=== PATIENT | male | born 1960 | race African-American/Black ===

== ENCOUNTER → 2016-09-10 | Outpatient (CLI) | payer OTHER ==
[2016-09-10 11:44] LABS: APPEARANCE,URINE CLEAR; BILIRUBIN,URINE NEGATIVE (NEGATIVE); GLUCOSE, URINE NEGATIVE (NEGATIVE); KETONES,URINE NEGATIVE (NEGATIVE); LEUKOCYTE ESTERASE,URINE NEGATIVE (NEGATIVE); NITRITE,URINE NEGATIVE (NEGATIVE); PROTEIN,URINE NEGATIVE (NEGATIVE); URINE SPECIFIC GRAVITY 1.009; UROBILINOGEN,URINE NEGATIVE mg/dL (<2.0)
[2016-09-10 12:04] LABS: ABSOLUTE BASOPHILS # (AUTO) 0.1 10^3/uL (0.0-0.2); ABSOLUTE EOSINOPHILS # (AUTO) 0.3 10^3/uL (0.0-0.6); ABSOLUTE MONOCYTES (AUTO) 0.6 10^3/uL (0.1-1.4); ABSOLUTE NEUT (AUTO) 2.6 10^3/uL (1.7-8.2); BASOPHILS % (AUTO) 1.4 % (0-2); EOSINOPHILS % (AUTO) 5.7 % (0-6); HEMATOCRIT 30.9 % (37.9-51.0); HEMOGLOBIN 10.2 g/dL (13.5-17.0); HGB HCT DIFFERENCE -0.3; LYMPHOCYTES % (AUTO) 22.7 % (13-45); MEAN CORPUSCULAR HEMOGLOBIN 28.4 pg (27.0-33.4); MEAN CORPUSCULAR HGB CONC 32.9 g/dL (32.0-36.0); MEAN CORPUSCULAR VOLUME 86 fl (80-97); MONOCYTES % (AUTO) 12.4 % (3-13); RED BLOOD COUNT 3.57 10^6/uL (4.35-5.55); RED CELL DISTRIBUTION WIDTH 15.6 % (11.5-14.0); SEGMENTED NEUTROPHILS % (AUTO) 57.8 % (42-78); WHITE BLOOD COUNT 4.5 10^3/uL (4.0-10.5)
[2016-09-10 12:26] LABS: ALANINE AMINOTRANSFERASE 55 U/L (21-72); ALBUMIN 3.2 g/dL (3.5-5.0); ALKALINE PHOSPHATASE 117 U/L (38-126); ANION GAP 16 (5-19); ASPARTATE AMINO TRANSFERASE 40 U/L (17-59); BILIRUBIN,DIRECT 0.4 mg/dL (0.0-0.4); BILIRUBIN,TOTAL 0.6 mg/dL (0.2-1.3); BLOOD UREA NITROGEN 83 mg/dL (7-20); CALCIUM 8.9 mg/dL (8.4-10.2); CARBON DIOXIDE 27 mmol/L (22-30); CHLORIDE 102 mmol/L (98-107); CREATININE RESULT 2.89 mg/dL (0.52-1.25); GLUCOSE 110 mg/dL (75-110); MAGNESIUM 1.7 mg/dL (1.6-2.3); PHOSPHORUS 5.4 mg/dL (2.5-4.5); POTASSIUM 4.5 mmol/L (3.6-5.0); SODIUM 145.4 mmol/L (137-145); TOTAL PROTEIN 7.3 g/dL (6.3-8.2)
[2016-09-11 10:20] LABS: PTH INTACT 91 pg/mL (15-65)
[2016-09-11 16:39] LABS: A/G RATIO 0.7 (0.7-1.7); ALBUMIN 2 2.8 g/dL (2.9-4.4); ALPHA-1-GLOBULIN 2 0.3 g/dL (0.0-0.4); GAMMA GLOBULIN 1.7 g/dL (0.4-1.8)
== END ==
LOC: LAB 10:58
PROVIDERS: ATTEND Internal Medicine Nephrology
DX: I13.0 Hypertensive heart and chronic kidney disease with heart failure and stage 1 through stage 4 chronic kidney disease, or unspecified chronic kidney disease (principal); N18.3 Chronic kidney disease, stage 3 (moderate); I50.9 Heart failure, unspecified; D64.9 Anemia, unspecified
CPT/HCPCS: 36415; 80053; 81001; 82570; 82728; 83540; 83550; 83735; 83970; 84100; 84156; 84165; 84443; 85025

== ENCOUNTER → 2016-10-28 | Outpatient (CLI) | payer OTHER ==
[2016-10-28 12:56] LABS: HEMATOCRIT 31.4 % (37.9-51.0); HEMOGLOBIN 10.7 g/dL (13.5-17.0); HGB HCT DIFFERENCE 0.7; MEAN CORPUSCULAR HEMOGLOBIN 29.2 pg (27.0-33.4); MEAN CORPUSCULAR VOLUME 86 fl (80-97); RED BLOOD COUNT 3.65 10^6/uL (4.35-5.55); RED CELL DISTRIBUTION WIDTH 13.7 % (11.5-14.0); WHITE BLOOD COUNT 5.1 10^3/uL (4.0-10.5)
[2016-10-28 13:14] LABS: ANION GAP 12 (5-19); BLOOD UREA NITROGEN 83 mg/dL (7-20); CALCIUM 9.4 mg/dL (8.4-10.2); CARBON DIOXIDE 28 mmol/L (22-30); CHLORIDE 104 mmol/L (98-107); CREATININE RESULT 3.09 mg/dL (0.52-1.25); GLUCOSE 126 mg/dL (75-110); MAGNESIUM 2.1 mg/dL (1.6-2.3); POTASSIUM 4.7 mmol/L (3.6-5.0); SODIUM 143.6 mmol/L (137-145)
== END ==
LOC: LAB 12:36
PROVIDERS: ATTEND Internal Medicine Nephrology
DX: I12.9 Hypertensive chronic kidney disease with stage 1 through stage 4 chronic kidney disease, or unspecified chronic kidney disease (principal); N18.3 Chronic kidney disease, stage 3 (moderate); D64.9 Anemia, unspecified; I50.9 Heart failure, unspecified
CPT/HCPCS: 36415; 80048; 83735; 85027

== ENCOUNTER → 2017-02-03 | Outpatient (CLI) | payer OTHER ==
[2017-02-03 17:07] LABS: HEMATOCRIT 28.7 % (37.9-51.0); HEMOGLOBIN 9.5 g/dL (13.5-17.0); HGB HCT DIFFERENCE -0.2; MEAN CORPUSCULAR HEMOGLOBIN 28.7 pg (27.0-33.4); MEAN CORPUSCULAR HGB CONC 33.1 g/dL (32.0-36.0); MEAN CORPUSCULAR VOLUME 87 fl (80-97); RED BLOOD COUNT 3.31 10^6/uL (4.35-5.55); RED CELL DISTRIBUTION WIDTH 13.4 % (11.5-14.0); WHITE BLOOD COUNT 5.7 10^3/uL (4.0-10.5)
[2017-02-03 17:32] LABS: ANION GAP 15 (5-19); BLOOD UREA NITROGEN 86 mg/dL (7-20); CALCIUM 9.3 mg/dL (8.4-10.2); CARBON DIOXIDE 23 mmol/L (22-30); CHLORIDE 104 mmol/L (98-107); CREATININE RESULT 3.22 mg/dL (0.52-1.25); GLUCOSE 125 mg/dL (75-110); PHOSPHORUS 3.8 mg/dL (2.5-4.5); POTASSIUM 4.4 mmol/L (3.6-5.0); SODIUM 142.4 mmol/L (137-145)
== END ==
LOC: LAB 16:45
PROVIDERS: ATTEND Physician Assistant Medical
DX: I12.9 Hypertensive chronic kidney disease with stage 1 through stage 4 chronic kidney disease, or unspecified chronic kidney disease (principal); N18.4 Chronic kidney disease, stage 4 (severe); R60.9 Edema, unspecified
CPT/HCPCS: 36415; 80048; 83970; 84100; 85027

== ENCOUNTER → 2017-02-06 | Outpatient (CLI) | payer OTHER ==
[2017-02-06 16:38] LABS: APPEARANCE,URINE CLEAR; BILIRUBIN,URINE NEGATIVE (NEGATIVE); GLUCOSE, URINE NEGATIVE (NEGATIVE); KETONES,URINE NEGATIVE (NEGATIVE); LEUKOCYTE ESTERASE,URINE NEGATIVE (NEGATIVE); NITRITE,URINE NEGATIVE (NEGATIVE); PROTEIN,URINE NEGATIVE (NEGATIVE); UROBILINOGEN,URINE NEGATIVE mg/dL (<2.0)
[2017-02-06 16:51] LABS: URINE CREATININE 106.5 mg/dL (22-328)
== END ==
LOC: LAB 16:23
PROVIDERS: ATTEND Internal Medicine Nephrology
DX: I12.9 Hypertensive chronic kidney disease with stage 1 through stage 4 chronic kidney disease, or unspecified chronic kidney disease (principal); N18.4 Chronic kidney disease, stage 4 (severe); R60.9 Edema, unspecified
CPT/HCPCS: 81001; 82570; 84156

== ENCOUNTER → 2017-08-27 | Outpatient (CLI) | payer OTHER ==
[2017-08-27 12:57] LABS: HEMOGLOBIN 10.6 g/dL (13.5-17.0); MEAN CORPUSCULAR HEMOGLOBIN 27.4 pg (27.0-33.4); MEAN CORPUSCULAR HGB CONC 32.1 g/dL (32.0-36.0); MEAN CORPUSCULAR VOLUME 86 fl (80-97); PLATELET COUNT 245 10^3/uL (150-450); RED BLOOD COUNT 3.86 10^6/uL (4.35-5.55); WHITE BLOOD COUNT 4.4 10^3/uL (4.0-10.5)
[2017-08-27 13:18] LABS: ANION GAP 16 (5-19); BLOOD UREA NITROGEN 53 mg/dL (7-20); CALCIUM 9.3 mg/dL (8.4-10.2); CARBON DIOXIDE 25 mmol/L (22-30); CHLORIDE 106 mmol/L (98-107); GLUCOSE 98 mg/dL (75-110); PHOSPHORUS 3.7 mg/dL (2.5-4.5); POTASSIUM 4.2 mmol/L (3.6-5.0); SODIUM 147.4 mmol/L (137-145)
[2017-08-28 04:37] LABS: HEPATITIS C VIRUS AB <0.1 s/co ratio (0.0-0.9)
[2017-08-28 08:25] LABS: HEPATITS B SURFACE ANTIGEN Negative (Negative)
== END ==
LOC: LAB 12:26
PROVIDERS: ATTEND Internal Medicine Nephrology
DX: I12.9 Hypertensive chronic kidney disease with stage 1 through stage 4 chronic kidney disease, or unspecified chronic kidney disease (principal); N18.4 Chronic kidney disease, stage 4 (severe); R18.8 Other ascites; D64.9 Anemia, unspecified; Z11.59 Encounter for screening for other viral diseases
CPT/HCPCS: 36415; 80048; 83970; 84100; 85027; 86803; 86804; 87340

== ENCOUNTER → 2018-01-21 | Outpatient (CLI) | payer OTHER ==
[2018-01-21 14:38] LABS: APPEARANCE,URINE CLEAR; BILIRUBIN,URINE NEGATIVE (NEGATIVE); COLOR,URINE YELLOW; GLUCOSE, URINE NEGATIVE (NEGATIVE); KETONES,URINE NEGATIVE (NEGATIVE); LEUKOCYTE ESTERASE,URINE NEGATIVE (NEGATIVE); NITRITE,URINE NEGATIVE (NEGATIVE); PROTEIN,URINE NEGATIVE (NEGATIVE); UROBILINOGEN,URINE NEGATIVE mg/dL (<2.0)
[2018-01-21 14:42] LABS: HEMATOCRIT 30.1 % (37.9-51.0); HEMOGLOBIN 9.8 g/dL (13.5-17.0); MEAN CORPUSCULAR HEMOGLOBIN 27.8 pg (27.0-33.4); MEAN CORPUSCULAR HGB CONC 32.6 g/dL (32.0-36.0); MEAN CORPUSCULAR VOLUME 85 fl (80-97); PLATELET COUNT 206 10^3/uL (150-450); RED BLOOD COUNT 3.54 10^6/uL (4.35-5.55); RED CELL DISTRIBUTION WIDTH 15.7 % (11.5-14.0); WHITE BLOOD COUNT 4.5 10^3/uL (4.0-10.5)
[2018-01-21 14:49] LABS: ANION GAP 15 (5-19); BLOOD UREA NITROGEN 65 mg/dL (7-20); CALCIUM 8.9 mg/dL (8.4-10.2); CARBON DIOXIDE 24 mmol/L (22-30); CHLORIDE 111 mmol/L (98-107); GLUCOSE 98 mg/dL (75-110); POTASSIUM 5.1 mmol/L (3.6-5.0); SODIUM 149.6 mmol/L (137-145)
== END ==
LOC: OD 13:44
PROVIDERS: ATTEND Internal Medicine Nephrology
DX: N18.4 Chronic kidney disease, stage 4 (severe) (principal); I50.9 Heart failure, unspecified
CPT/HCPCS: 36415; 80048; 81001; 85027

== ENCOUNTER 2018-01-22 12:44 | Inpatient (IN) | payer OTHER ==
--- NOTE | 2018-01-22 13:04 | ER Document Report ---
ED Medical Screen (RME) - General Chief Complaint: Abdominal Pain Stated Complaint: ABDOMINAL SWELLING Time Seen by Provider: 01/22/18 12:55 Notes: 57-year-old male sent over by Dr. Collazo for evaluation and admission for paracentesis and worsening chronic kidney disease. Patient states that he has gained about 100 pounds in the last several weeks. Some discomfort in the abdomen but denies any fever, chills, sweats. Had blood work performed yesterday. Dr. Collazo called ahead and stated that he was planning on admitting the patient to the [facility] however there is no beds at this time and requests that we begin the workup at this time. TRAVEL OUTSIDE OF THE [place] IN LAST 30 DAYS: No - HPI Onset/Duration: Gradual, Constant Quality of pain: Achy Severity: Mild - Related Data Allergies/Adverse Reactions: No Known Allergies Allergy (Unverified 01/22/18 12:46) Past Medical History - General Information source: Patient - Social History Cigarette use (# per day): No Frequency of alcohol use: None Drug Abuse: None Lives with: Family - Medical History Notes: Right kidney disease, hypertension, ascites, hyperlipidemia Physical Exam - Vital signs Vitals: Temp Pulse Resp BP Pulse Ox 98.2 F 67 18 169/98 H 100 01/22/18 12:52 01/22/18 12:52 01/22/18 12:52 01/22/18 12:52 01/22/18 12:52 Interpretation: Hypertensive - Respiratory Respiratory status: No respiratory distress Chest status: Nontender Breath sounds: Normal Chest palpation: Normal - Cardiovascular Rhythm: Regular Heart sounds: Normal auscultation Murmur: No - Abdominal Inspection: Normal Distension: Distended, Fluid wave Bowel sounds: Normal Tenderness: Nontender Organomegaly: No organomegaly Course - Re-evaluation Re-evalutation: 01/22/18 13:[address] order for the paracentesis. Did discuss case with the radiologist. Will begin workup at this time. Labs were performed yesterday so have not repeated the labs which were done yesterday but will add on the coag studies I have greeted and performed a rapid initial assessment of this patient. A comprehensive ED assessment and evaluation of the patient, analysis of test results and completion of the medical decision making process will be conducted by additional ED providers. - Vital Signs Vital signs: Temp Pulse Resp BP Pulse Ox 98.2 F 67 18 169/98 H 100 01/22/18 12:52 01/22/18 12:52 01/22/18 12:52 01/22/18 12:52 01/22/18 12:52 Doctor's Discharge - Discharge Referrals: Nir BROOKS MD [Primary Care Provider] - Follow up as needed
[2018-01-22 13:50] LABS: PROTHROMBIN TIME 15.8 SEC (11.4-15.4)
[2018-01-22 13:51] LABS: PARTIAL THROMBOPLASTIN TIME 31.9 SEC (23.5-35.8)
--- NOTE | 2018-01-22 14:34 | ER Document Report ---
ED General - General Chief Complaint: Abdominal Pain Stated Complaint: ABDOMINAL SWELLING Time Seen by Provider: 01/22/18 12:55 TRAVEL OUTSIDE OF THE [place] IN LAST 30 DAYS: No - HPI Notes: Patient is a 57-year-old male with a past medical history significant for ascites as well as chronic kidney disease who presents to the ED per the direction of Dr. Collazo for paracentesis. Patient states that he has gained over 100 pounds over the last 8 months. Patient states that he has had to have a paracentesis performed before. Patient states that he has no pain. He is eating and drinking without difficulties. He is urinating normally and having normal bowel movements. No other concerns or complaints at this time. Denies any headache, fever, neck pain, URI, sore throat, chest pain, palpitations, syncope, cough, shortness of breath, wheeze, dyspnea, abdominal pain, nausea/ vomiting/diarrhea, urinary retention, dysuria, hematuria, back pain, loss of control of bowel or bladder, numbness/tingling, muscle paralysis/weakness, or rash. - Related Data Allergies/Adverse Reactions: No Known Allergies Allergy (Unverified 01/22/18 12:46) Past Medical History - General Information source: Patient - Social History Smoking Status: Never Smoker Cigarette use (# per day): No Frequency of alcohol use: None Drug Abuse: None Lives with: Family Family History: Reviewed & Not Pertinent Patient has suicidal ideation: No Patient has homicidal ideation: No Renal/ Medical History: Denies: Hx Peritoneal Dialysis Review of Systems - Review of Systems -: Yes All other systems reviewed and negative Physical Exam - Vital signs Vitals: Temp Pulse Resp BP Pulse Ox 98.2 F 67 18 169/98 H 100 01/22/18 12:52 01/22/18 12:52 01/22/18 12:52 01/22/18 12:52 01/22/18 12:52 - Notes Notes: PHYSICAL EXAMINATION: GENERAL: Well-appearing, well-nourished and in no acute distress. HEAD: Atraumatic, normocephalic. EYES: Pupils equal round and reactive to light, extraocular movements intact, sclera anicteric, conjunctiva are normal. ENT: Nares patent and without discharge. oropharynx clear without exudates. No tonsilar hypertrophy or erythema. Moist mucous membranes. NECK: Normal range of motion, supple without lymphadenopathy LUNGS: Breath sounds clear to auscultation bilaterally and equal. No wheezes rales or rhonchi. HEART: Regular rate and rhythm without murmurs, rubs, gallops. ABDOMEN: Firm, + large distention with ascites to the abd. No guarding, no rebound. No CVA tenderness bilaterally. Musculoskeletal: FROM to passive/active. Strength 5+/5. Extremities: No cyanosis, clubbing, or edema b/l. Peripheral pulses 2+. Capillary refill less than 3 seconds. NEUROLOGICAL: Normal speech, normal gait. PSYCH: Normal mood, normal affect. SKIN: Warm, Dry, normal turgor, no rashes or lesions noted. Course - Re-evaluation Re-evalutation: 01/22/18 14:55 Patient is an afebrile, well-hydrated, 57-year-old male who presents to the ED with abdominal distention and ascites who was referred here by his primary care doctor, Dr. Collazo. Vitals are acceptable without any significant tachycardia, tachypnea, or hypoxia. PE is otherwise unremarkable. Patient does not have any associated pain. Patient is tolerating p.o. and is nontoxic-appearing. Per Dr. Collazo, basic labs and imaging were ordered including CT of the abdomen and pelvis without contrast. Paracentesis order was also placed. Dr. Collazo did want Lasix 10 mg/h on a drip started as well as albumin IV. Dr. Collazo accepts admission to [facility] and would like him placed on the list at this time. Patient is in agreement with disposition and plan. - Vital Signs Vital signs: Temp Pulse Resp BP Pulse Ox 98.2 F 67 18 169/98 H 100 01/22/18 12:52 01/22/18 12:52 01/22/18 12:52 01/22/18 12:52 01/22/18 12:52 - Laboratory Laboratory results interpreted by la: 01/22/18 13:24 PT 15.8 H Discharge - Discharge Clinical Impression: Ascites Qualifiers: Ascites type: other type Qualified Code(s): R18.8 - Other ascites Condition: Stable Disposition: ADMITTED INPATIENT Admitting Provider: Zay Unit Admitted: [facility] Referrals: Nir BROOKS MD [ACTIVE STAFF] - Follow up as needed
[2018-01-22] MEDS ORDERED: NORMAL SALINE 250 ML with FUROSEMIDE 250 MG IV PRN ×2 (14:52)
[2018-01-22 15:11] LABS: ABSOLUTE BASOPHILS # (AUTO) 0.1 10^3/uL (0.0-0.2); ABSOLUTE EOSINOPHILS # (AUTO) 0.1 10^3/uL (0.0-0.6); ABSOLUTE LYMPHOCYTES (AUTO) 0.6 10^3/uL (0.5-4.7); ABSOLUTE MONOCYTES (AUTO) 0.4 10^3/uL (0.1-1.4); ABSOLUTE NEUT (AUTO) 3.7 10^3/uL (1.7-8.2); BASOPHILS % (AUTO) 1.2 % (0-2); HEMATOCRIT 31.3 % (37.9-51.0); LYMPHOCYTES % (AUTO) 13.3 % (13-45); MEAN CORPUSCULAR HEMOGLOBIN 27.7 pg (27.0-33.4); MEAN CORPUSCULAR VOLUME 87 fl (80-97); MONOCYTES % (AUTO) 7.6 % (3-13); PLATELET COUNT 217 10^3/uL (150-450); RED BLOOD COUNT 3.62 10^6/uL (4.35-5.55); RED CELL DISTRIBUTION WIDTH 16.1 % (11.5-14.0); SEGMENTED NEUTROPHILS % (AUTO) 75.9 % (42-78); TOTAL CELLS COUNTED % (AUTO) 100 %; WHITE BLOOD COUNT 4.9 10^3/uL (4.0-10.5)
[2018-01-22] MEDS ORDERED: ACETAMINOPHEN 325 MG TABLET PO PRN (15:16)
[2018-01-22 15:35] LABS: ALANINE AMINOTRANSFERASE 18 U/L (21-72); ALBUMIN 3.9 g/dL (3.5-5.0); ALKALINE PHOSPHATASE 87 U/L (38-126); ANION GAP 15 (5-19); ASPARTATE AMINO TRANSFERASE 23 U/L (17-59); BILIRUBIN,DIRECT 0.4 mg/dL (0.0-0.4); BILIRUBIN,TOTAL 0.4 mg/dL (0.2-1.3); BLOOD UREA NITROGEN 65 mg/dL (7-20); CARBON DIOXIDE 25 mmol/L (22-30); CHLORIDE 110 mmol/L (98-107); GLUCOSE 102 mg/dL (75-110); POTASSIUM 4.9 mmol/L (3.6-5.0); SODIUM 150.3 mmol/L (137-145); TOTAL PROTEIN 8.3 g/dL (6.3-8.2)
--- NOTE | 2018-01-22 15:40 | RADIOLOGY REPORT (SQ) ---
EXAM DESCRIPTION: CHEST SINGLE VIEW COMPLETED DATE/TIME: 01/22/2018 3:24 pm REASON FOR STUDY: abd swelling COMPARISON: None. EXAM PARAMETERS: NUMBER OF VIEWS: One view. TECHNIQUE: Single frontal radiographic view of the chest acquired. RADIATION DOSE: NA LIMITATIONS: Lordotic portable film FINDINGS: LUNGS AND PLEURA: No opacities, masses or pneumothorax. No pleural effusion. MEDIASTINUM AND HILAR STRUCTURES: No masses. Contour normal. HEART AND VASCULAR STRUCTURES: Moderate cardiomegaly BONES: No acute findings. HARDWARE: None in the chest. OTHER: No other significant finding. IMPRESSION: Moderate cardiomegaly. No acute infiltrates. TECHNICAL DOCUMENTATION: JOB ID: [id number] [employer]- All Rights Reserved Reading location - IP/workstation name: [email or web address]
--- NOTE | 2018-01-22 15:44 | RADIOLOGY REPORT (SQ) ---
EXAM DESCRIPTION: CT ABD/PELVIS NO ORAL OR IV COMPLETED DATE/TIME: 01/22/2018 3:34 pm REASON FOR STUDY: ascites, distended COMPARISON: None. TECHNIQUE: CT scan of the abdomen and pelvis performed without intravenous or oral contrast. Images reviewed with lung, soft tissue, and bone windows. Reconstructed coronal and sagittal MPR images revi ewed. All images stored on PACS. All CT scanners at this facility use dose modulation, iterative reconstruction, and/or weight based d osing when appropriate to reduce radiation dose to as low as reasonably achievable (ALARA). [facility]: Dose Right [facility]: CareDose [facility]: Dose Right [facility]: Teradose 4D [facility]: Smart Hyl[employer]Soft RADIATION DOSE: CT Rad equipment meets quality standard of care and radiation dose reduction techniq ues were employed. CTDIvol: 27.8 mGy. DLP: 1647 mGy-cm.mGy. LIMITATIONS: None. FINDINGS: LOWER CHEST: No significant findings. No nodules or infiltrates. NON-CONTRASTED LIVER, SPLEEN, ADRENALS: Relatively small liver. Spleen is unremarkable. No adrenal mass is appreciated. PANCREAS: No masses. No peripancreatic inflammatory changes. GALLBLADDER: Cholelithiasis. There appear to be numerous small stones. RIGHT KIDNEY AND URETER: No suspicious masses. Assessment limited by lack of IV contrast. No signif icant calcifications. No hydronephrosis or hydroureter. LEFT KIDNEY AND URETER: No suspicious masses. Assessment limited by lack of IV contrast. No signifi cant calcifications. No hydronephrosis or hydroureter. AORTA AND RETROPERITONEUM: No aneurysm. No retroperitoneal masses or adenopathy. BOWEL AND PERITONEAL CAVITY: No obvious masses. Massive ascites. APPENDIX: Not identified. PELVIS, BLADDER, AND ABDOMINAL WALL:Massive ascites. Urinary bladder appears normal. BONES: No significant findings. OTHER: No other significant finding. IMPRESSION: Small liver. Massive ascites. Evaluation of bowel is limited because of the ascites. COMMENT: Quality ID # [id number]: Final reports with documentation of one or more dose reduction techniques (e.g., Automated exposure control, adjustment of the mA and/or kV according to patient size, use of iterative reconstruction technique) TECHNICAL DOCUMENTATION: JOB ID: [id number] [employer]- All Rights Reserved Reading location - IP/workstation name: [email or web address]
--- NOTE | 2018-01-22 16:58 | PDOC H&P ---
History of Present Illness Admission Date/PCP: 01/22/18 15:02 LUKAS BRODY MD Patient complains of: Ascites History of Present Illness: TONY WOODS is a 57 year old maleWith a significant history of congestive heart failure with EF is mildly depressed per Dr. Wright's officeWas [place] and that Dr. 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 Wright and noticed the patient's gains almost 60 pounds since last year in patients was referred back to the my office patient eyesight in the ca patient's gained almost 35 pounds since October patients have a use of ascites but patient is otherwise alert awake snorted and distressed denied any chest pain denied any shortness of the breathDecided to the admitted in the hospital for the paracentesis and IV Lasix drip and discussed with the Dr. Wright will also get the CT abdomen and pelvis Patients and the discuss and agree to admit in the hospital for further evaluations Past Medical History Cardiac Medical History: Reports: Congestive Heart Failure, Hyperlipidema, Hypertension Pulmonary Medical History: Reports: Sleep Apnea Renal/ Medical History: Reports: Chronic Kidney Disease GI Medical History: Reports: Gastroesophageal Reflux Disease Hematology: Reports: Anemia Social History Lives with: Family Smoking Status: Never Smoker Frequency of Alcohol Use: Occasional Hx Recreational Drug Use: No Family History Family History: Reviewed & Not Pertinent Parental Family History Reviewed: Yes Children Family History Reviewed: Yes Sibling(s) Family History Reviewed.: Yes Medication/Allergy Allergies/Adverse Reactions: No Known Allergies Allergy (Unverified 01/22/18 12:46) Review of Systems Constitutional: ABSENT: chills, fever(s), headache(s), weight gain, weight loss Eyes: ABSENT: visual disturbances Ears: ABSENT: hearing changes Cardiovascular: ABSENT: chest pain, dyspnea on exertion, edema, orthropnea, palpitations Respiratory: ABSENT: cough, hemoptysis Gastrointestinal: ABSENT: abdominal pain, constipation, diarrhea, hematemesis, hematochezia, nausea, vomiting Genitourinary: ABSENT: dysuria, hematuria Musculoskeletal: ABSENT: joint swelling Integumentary: ABSENT: rash, wounds Neurological: ABSENT: abnormal gait, abnormal speech, confusion, dizziness, focal weakness, syncope Psychiatric: ABSENT: anxiety, depression, homidical ideation, suicidal ideation Endocrine: ABSENT: cold intolerance, heat intolerance, menstrual abnormalities, polydipsia, polyuria Hematologic/Lymphatic: ABSENT: easy bleeding, easy bruising, lymphadenopathy Physical Exam Vital Signs: Temp Pulse Resp BP Pulse Ox 98.2 F 67 18 169/98 H 100 01/22/18 12:52 01/22/18 12:52 01/22/18 12:52 01/22/18 12:52 01/22/18 12:52 General appearance: PRESENT: no acute distress, well-developed, well-nourished Head exam: PRESENT: atraumatic, normocephalic Eye exam: PRESENT: conjunctiva pink, EOMI, PERRLA. ABSENT: scleral icterus Ear exam: PRESENT: normal external ear exam Mouth exam: PRESENT: moist, tongue midline Neck exam: PRESENT: full ROM. ABSENT: carotid bruit, JVD, lymphadenopathy, thyromegaly Respiratory exam: PRESENT: decreased breath sounds Cardiovascular exam: PRESENT: RRR. ABSENT: diastolic murmur, rubs, systolic murmur Pulses: PRESENT: normal dorsalis pedis pul, +2 pedal pulses bilateral Vascular exam: PRESENT: normal capillary refill GI/Abdominal exam: PRESENT: ascites, distended, normal bowel sounds. ABSENT: guarding, mass, organolmegaly, rebound, tenderness Rectal exam: PRESENT: deferred Extremities exam: PRESENT: pedal edema Musculoskeletal exam: PRESENT: ambulatory Neurological exam: PRESENT: alert, awake, oriented to person, oriented to place , oriented to time, oriented to situation, CN II-XII grossly intact. ABSENT: motor sensory deficit Psychiatric exam: PRESENT: appropriate affect, normal mood. ABSENT: homicidal ideation, suicidal ideation Skin exam: PRESENT: dry, intact, warm. ABSENT: cyanosis, rash Results Impressions: Chest X-Ray 01/22/18 14:51 IMPRESSION: Moderate cardiomegaly. No acute infiltrates. Abdomen/Pelvis CT 01/22/18 14:52 IMPRESSION: Small liver. Massive ascites. Evaluation of bowel is limited because of the ascites. Assessment & Plan - Diagnosis (1) Ascites Qualifiers: Ascites type: other type Qualified Code(s): R18.8 - Other ascites Is this a current diagnosis for this admission?: Yes Plan: Will order the paracentesis and given albumin most likely due to the hypoalbuminemia and with the multiple other issues including the congestive heart failure and chronic kidney disease as per review the records from [place] (2) Congestive heart failure Qualifiers: Heart failure type: combined systolic and diastolic Heart failure chronicity: chronic Qualified Code(s): I50.42 - Chronic combined systolic ( congestive) and diastolic (congestive) heart failure Is this a current diagnosis for this admission?: Yes Plan: Start the patient on the Lasix drips although the echocardiogram consult the cardiology (3) Acute renal failure Qualifiers: Acute renal failure type: unspecified Qualified Code(s): N17.9 - Acute kidney failure, unspecified Is this a current diagnosis for this admission?: Yes Plan: Patient's baseline creatinine is 2.5 we will consult the doctor Eboni discussed with him today to start the Lasix drips and the paracentesis and will get the echo and CT scan and further workup (4) Chronic kidney disease Qualifiers: Chronic kidney disease stage: stage 4 (severe) Qualified Code(s): N18.4 - Chronic kidney disease, stage 4 (severe) Is this a current diagnosis for this admission?: Yes (5) Hypertension Qualifiers: Hypertension type: essential hypertension Qualified Code(s): I10 - Essential (primary) hypertension Is this a current diagnosis for this admission?: Yes Plan: Continues the current medication (6) Protein calorie malnutrition Qualifiers: Protein-calorie malnutrition severity: moderate Qualified Code(s): E44.0 - Moderate protein-calorie malnutrition Is this a current diagnosis for this admission?: Yes Plan: Recheck the prealbumin and albumin replaced albumin (7) Noncompliance Is this a current diagnosis for this admission?: Yes Plan: Discussed with the patient and the in the room regarding the patient's current condition 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
[2018-01-22] MEDS: ALBUMIN HUMAN 12.5 GM/50 ML RTUINJ IV SCH ×2 (18:42→20:10)
[2018-01-22] MEDS: CALCIUM ACETATE 667 MG CAPSULE PO SCH (18:47)
[2018-01-22] MEDS: LANSOPRAZOLE 15 MG TAB.RAP.DR PO SCH (18:48)
[2018-01-22] MEDS: DOCUSATE SODIUM 100 MG CAPSULE PO SCH (18:49)
[2018-01-22 19:51] LABS: FLUID COLOR YELLOW; FLUID SOURCE ASCITES; FLUID TYPE PERITONEAL
[2018-01-22 19:52] LABS: FLUID APPEARANCE SLIGHTLY HAZY; FLUID VISCOSITY LIQUID
[2018-01-22] MEDS: NORMAL SALINE 250 ML with FUROSEMIDE 250 MG IV PRN ×2 (20:37)
[2018-01-22 20:41] LABS: APPEARANCE,URINE CLEAR; BILIRUBIN,URINE NEGATIVE (NEGATIVE); COLOR,URINE YELLOW; GLUCOSE, URINE NEGATIVE (NEGATIVE); KETONES,URINE NEGATIVE (NEGATIVE); LEUKOCYTE ESTERASE,URINE NEGATIVE (NEGATIVE); NITRITE,URINE NEGATIVE (NEGATIVE); PROTEIN,URINE NEGATIVE (NEGATIVE); URINE SPECIFIC GRAVITY 1.011; UROBILINOGEN,URINE NEGATIVE mg/dL (<2.0)
[2018-01-22] MEDS: METOPROLOL TARTRATE 50 MG TABLET PO SCH (21:29)
[2018-01-22] MEDS: HEPARIN SOD (PORCINE) 5,000 UNIT/ML 1 ML SYRINGE SUBCUT SCH (21:30)
[2018-01-23 05:18] LABS: ABSOLUTE BASOPHILS # (AUTO) 0.1 10^3/uL (0.0-0.2); ABSOLUTE EOSINOPHILS # (AUTO) 0.1 10^3/uL (0.0-0.6); ABSOLUTE LYMPHOCYTES (AUTO) 0.7 10^3/uL (0.5-4.7); ABSOLUTE MONOCYTES (AUTO) 0.3 10^3/uL (0.1-1.4); ABSOLUTE NEUT (AUTO) 2.6 10^3/uL (1.7-8.2); BASOPHILS % (AUTO) 1.4 % (0-2); EOSINOPHILS % (AUTO) 3.4 % (0-6); HEMATOCRIT 28.6 % (37.9-51.0); HEMOGLOBIN 9.2 g/dL (13.5-17.0); LYMPHOCYTES % (AUTO) 17.7 % (13-45); MEAN CORPUSCULAR HEMOGLOBIN 27.7 pg (27.0-33.4); MEAN CORPUSCULAR HGB CONC 32.2 g/dL (32.0-36.0); MEAN CORPUSCULAR VOLUME 86 fl (80-97); MONOCYTES % (AUTO) 9.2 % (3-13); PLATELET COUNT 169 10^3/uL (150-450); RED BLOOD COUNT 3.33 10^6/uL (4.35-5.55); RED CELL DISTRIBUTION WIDTH 16.3 % (11.5-14.0); SEGMENTED NEUTROPHILS % (AUTO) 68.3 % (42-78); TOTAL CELLS COUNTED % (AUTO) 100 %; WHITE BLOOD COUNT 3.8 10^3/uL (4.0-10.5)
[2018-01-23 05:44] LABS: ANION GAP 14 (5-19); BLOOD UREA NITROGEN 61 mg/dL (7-20); CALCIUM 8.7 mg/dL (8.4-10.2); CARBON DIOXIDE 22 mmol/L (22-30); CHLORIDE 112 mmol/L (98-107); GLUCOSE 95 mg/dL (75-110); POTASSIUM 4.7 mmol/L (3.6-5.0); SODIUM 148.4 mmol/L (137-145)
[2018-01-23] MEDS: HEPARIN SOD (PORCINE) 5,000 UNIT/ML 1 ML SYRINGE SUBCUT SCH ×3 (05:52→22:03)
[2018-01-23] MEDS: LANSOPRAZOLE 15 MG TAB.RAP.DR PO SCH ×2 (05:52→16:42)
[2018-01-23] MEDS: ALBUMIN HUMAN 12.5 GM/50 ML RTUINJ IV SCH ×3 (08:33→10:11)
[2018-01-23] MEDS: CALCIUM ACETATE 667 MG CAPSULE PO SCH ×3 (08:36→16:42)
--- NOTE | 2018-01-23 08:59 | RADIOLOGY REPORT (SQ) ---
EXAM DESCRIPTION: U/S ABD PARACENTESIS COMPLETED DATE/TIME: 01/22/2018 5:33 pm REASON FOR STUDY: Ascites COMPARISON CT abdomen pelvis 01/22/2018 LIMITATIONS: None. PROCEDURE: After obtaining informed consent, the patient was brought to the ultrasound suite. The p rocedure was performed with the patient on a gurney. Ultrasound was used to identify a prominent poc ket of ascites in the right lower quadrant. An appropriate access site was selected. The patient wa s prepped and draped in usual sterile fashion. The access site was anesthetized with 6 mL 1% lidoca ine. A Vawq-E-Juxftwlo needle was advanced into the fluid. After aspiration of fluid the needle, th e catheter was advanced off the needle into the fluid. A total of 10 liters of cloudy yellow fluid w as removed. The patient tolerated the procedure well left the department in satisfactory condition. Fluid sent for testing. Patient received IV albumin after the procedure IMPRESSION: Successful ultrasound-guided 10 liter diagnostic and therapeutic paracentesis COMMENT: Patient medication list reviewed: Yes- Quality ID# [id number]:Eligible professional attests to doc umenting in the medical record they obtained, updated, or reviewed the patient's current medications. TECHNICAL DOCUMENTATION: JOB ID: [id number] [employer]- All Rights Reserved Reading location - IP/workstation name: [email or web address]
[2018-01-23] MEDS: DOCUSATE SODIUM 100 MG CAPSULE PO SCH ×2 (09:06→17:14)
[2018-01-23] MEDS: METOPROLOL TARTRATE 50 MG TABLET PO SCH ×2 (09:07→22:03)
[2018-01-23] MEDS: NORMAL SALINE 250 ML with FUROSEMIDE 250 MG IV PRN ×2 (11:16)
--- NOTE | 2018-01-23 15:49 | PDOC PROGRESS REPORT ---
Subjective Progress Note for:: 01/23/18 Subjective:: Patient was seen by the bedside, he was admitted for the management of massive ascites, he had abdominal paracentesis done already, the serum ascites albumin gradient is pending this will help diagnose portal hypertension,if the SAAG is more than 1.1.that will suggest that he has portal hypertension, if the ascitic protein is less than 2.5 that would suggest that the ascites is from the liver if the ascitis protein is more than 2.5 that would suggest cardiomyopathy , patient stated that he was diagnosed with ascities in the past and he was advised that is from his kidney but he has no nephrotic syndrome The CT scan showed a small liver suggesting that this is most likely due portal hypertension. Another potential cause is abdominal carcinomatosis if the serum ascites albumin gradient is less than 1.1 that would suggest a non-portal hypertension etiology Reason For Visit: CHF/SOB Physical Exam Vital Signs: Temp Pulse Resp BP Pulse Ox 97.9 F 58 L 16 145/73 H 99 01/23/18 12:34 01/23/18 12:34 01/23/18 12:34 01/23/18 12:34 01/23/18 12:34 Intake & Output 01/22/18 01/23/18 01/24/18 06:59 06:59 06:59 Intake Total 50 765 Output Total 2500 2400 Balance -2450 -1635 Weight 131.7 kg General appearance: PRESENT: no acute distress Eye exam: PRESENT: PERRLA Respiratory exam: PRESENT: clear to auscultation darline Cardiovascular exam: PRESENT: +S1, +S2 GI/Abdominal exam: PRESENT: distended Extremities exam: PRESENT: pedal edema Neurological exam: PRESENT: alert Results Laboratory Results: 01/23/18 04:27 01/23/18 04:27 01/22/18 01/22/18 01/23/18 16:05 19:50 04:27 WBC 3.8 L RBC 3.33 L Hgb 9.2 L Hct 28.6 L MCV 86 MCH 27.7 MCHC 32.2 RDW 16.3 H Plt Count 169 Seg Neutrophils % 68.3 Lymphocytes % 17.7 Monocytes % 9.2 Eosinophils % 3.4 Basophils % 1.4 Absolute Neutrophils 2.6 Absolute Lymphocytes 0.7 Absolute Monocytes 0.3 Absolute Eosinophils 0.1 Absolute Basophils 0.1 Sodium Potassium Chloride Carbon Dioxide Anion Gap BUN Creatinine Est GFR ( Amer) Est GFR (Non-Af Amer) Glucose Calcium Magnesium Urine Color YELLOW Urine Appearance CLEAR Urine pH 5.0 Ur Specific [place] 1.011 Urine Protein NEGATIVE Urine Glucose (UA) NEGATIVE Urine Ketones NEGATIVE Urine Blood SMALL H Urine Nitrite NEGATIVE Ur Leukocyte Esterase NEGATIVE Urine WBC (Auto) 0 Urine RBC (Auto) 0 Fluid Type PERITONEAL Fluid Source ASCITES Fluid Color YELLOW Fluid Appearance SLIGHTLY HAZY Fluid Viscosity LIQUID Fluid WBC 21 Fluid RBC 11 01/23/18 04:27 WBC RBC Hgb Hct MCV MCH MCHC RDW Plt Count Seg Neutrophils % Lymphocytes % Monocytes % Eosinophils % Basophils % Absolute Neutrophils Absolute Lymphocytes Absolute Monocytes Absolute Eosinophils Absolute Basophils Sodium 148.4 H Potassium 4.7 Chloride 112 H Carbon Dioxide 22 Anion Gap 14 BUN 61 H Creatinine 2.63 H Est GFR ( Amer) 31 L Est GFR (Non-Af Amer) 25 L Glucose 95 Calcium 8.7 Magnesium 2.2 Urine Color Urine Appearance Urine pH Ur Specific [place] Urine Protein Urine Glucose (UA) Urine Ketones Urine Blood Urine Nitrite Ur Leukocyte Esterase Urine WBC (Auto) Urine RBC (Auto) Fluid Type Fluid Source Fluid Color Fluid Appearance Fluid Viscosity Fluid WBC Fluid RBC 01/23/18 04:27 NT-Pro-B Natriuret Pep 8330 H Impressions: Paracentesis Ultrasound 01/22/18 13:04 IMPRESSION: Successful ultrasound-guided 10 liter diagnostic and therapeutic paracentesis Chest X-Ray 01/22/18 14:51 IMPRESSION: Moderate cardiomegaly. No acute infiltrates. Abdomen/Pelvis CT 01/22/18 14:52 IMPRESSION: Small liver. Massive ascites. Evaluation of bowel is limited because of the ascites. Assessment & Plan - Diagnosis (1) Ascites Qualifiers: Ascites type: other type Qualified Code(s): R18.8 - Other ascites Is this a current diagnosis for this admission?: Yes Plan: The differential diagnosis include portal hypertension and non- portal hypertension etiology ,to diagnosed portal hypertension this will depend on the serum ascites albumin gradient, if is more than 1.1 it is portal hypertension, the ascites protein will help differentiate cardiomyopathy from liver cirrhosis if the protein is more than 2.5 it is cardiomyopathy. If the gradient is less than 1.1, the differential diagnosis will include abdominal carcinomatosis, nephrotic syndrome, nephrotic syndrome is unlikely in this patient with no proteinuria.
[2018-01-23] MEDS: PHARMACY COMMUNICATION ORDER MC SCH (17:14)
--- NOTE | 2018-01-23 22:09 | Progress Note ---
Provider Note Provider Note: Patient had abdominal paracentesis done, 10 L of ascites fluid was collected patient needs 40 g of 25% albumin, it is recommended that beyond 5 L of ascites fluid collected, 8 g of 25% albumin is administer for each liter of fluid removed since 5 L was removed beyond the initial 5 L dominance patient she will receive a total of 40 g of albumin was low for he has received 25 g there is a deficit of 15 g.
[2018-01-23] MEDS ORDERED: ALBUMIN HUMAN 12.5 GM/50 ML RTUINJ IV ONE (22:11)
[2018-01-23] MEDS ORDERED: ALBUMIN HUMAN 12.5 GM/50 ML RTUINJ IV SCH (22:15)
[2018-01-23] MEDS ORDERED: ALBUMIN HUMAN 25.0 GM/100 ML RTUINJ IV ONE (22:40)
[2018-01-24 05:00] LABS: ABSOLUTE BASOPHILS # (AUTO) 0.1 10^3/uL (0.0-0.2); ABSOLUTE EOSINOPHILS # (AUTO) 0.1 10^3/uL (0.0-0.6); ABSOLUTE LYMPHOCYTES (AUTO) 0.8 10^3/uL (0.5-4.7); ABSOLUTE MONOCYTES (AUTO) 0.3 10^3/uL (0.1-1.4); ABSOLUTE NEUT (AUTO) 2.4 10^3/uL (1.7-8.2); BASOPHILS % (AUTO) 1.3 % (0-2); EOSINOPHILS % (AUTO) 3.5 % (0-6); HEMATOCRIT 25.8 % (37.9-51.0); HEMOGLOBIN 8.6 g/dL (13.5-17.0); LYMPHOCYTES % (AUTO) 21.6 % (13-45); MEAN CORPUSCULAR HEMOGLOBIN 28.5 pg (27.0-33.4); MEAN CORPUSCULAR HGB CONC 33.4 g/dL (32.0-36.0); MEAN CORPUSCULAR VOLUME 85 fl (80-97); MONOCYTES % (AUTO) 9.3 % (3-13); PLATELET COUNT 157 10^3/uL (150-450); RED BLOOD COUNT 3.02 10^6/uL (4.35-5.55); RED CELL DISTRIBUTION WIDTH 16.3 % (11.5-14.0); SEGMENTED NEUTROPHILS % (AUTO) 64.3 % (42-78); TOTAL CELLS COUNTED % (AUTO) 100 %; WHITE BLOOD COUNT 3.7 10^3/uL (4.0-10.5)
[2018-01-24 05:27] LABS: ANION GAP 13 (5-19); BLOOD UREA NITROGEN 57 mg/dL (7-20); CALCIUM 8.6 mg/dL (8.4-10.2); CARBON DIOXIDE 26 mmol/L (22-30); CHLORIDE 109 mmol/L (98-107); GLUCOSE 105 mg/dL (75-110); POTASSIUM 4.6 mmol/L (3.6-5.0); SODIUM 147.7 mmol/L (137-145)
[2018-01-24] MEDS: HEPARIN SOD (PORCINE) 5,000 UNIT/ML 1 ML SYRINGE SUBCUT SCH ×3 (06:25→21:42)
[2018-01-24] MEDS: LANSOPRAZOLE 15 MG TAB.RAP.DR PO SCH ×2 (06:25→17:20)
[2018-01-24] MEDS ORDERED: NORMAL SALINE 250 ML with FUROSEMIDE 250 MG IV PRN ×2 (09:18)
[2018-01-24] MEDS: DOCUSATE SODIUM 100 MG CAPSULE PO SCH ×2 (10:22→17:19)
[2018-01-24] MEDS: CALCIUM ACETATE 667 MG CAPSULE PO SCH ×3 (10:24→17:20)
[2018-01-24] MEDS: METOPROLOL TARTRATE 50 MG TABLET PO SCH ×2 (10:24→21:42)
--- NOTE | 2018-01-24 11:26 | PDOC PROGRESS REPORT ---
Subjective Progress Note for:: 01/24/18 Subjective:: Patient was seen by the bedside, the serum ascites albumin gradient is 1.3 suggesting that the etiology of the ascites is portal hypertension. He has no liver disease, the LFTs are normal, no alcohol abuse, the liver function is normal, the ascites protein is pending, the etiology of the portal hypertension is most likely cardiomyopathy so patient probably have acute combined systolic and diastolic heart failure, needs to rule out pericardial disease. Reason For Visit: CHF/SOB Physical Exam Vital Signs: Temp Pulse Resp BP Pulse Ox 98.5 F 64 16 139/71 H 95 01/24/18 07:11 01/24/18 07:11 01/24/18 07:11 01/24/18 07:11 01/24/18 07:11 Intake & Output 01/23/18 01/24/18 01/25/18 06:59 06:59 06:59 Intake Total 50 2008 Output Total 5752 8217 Balance -4087 -7691 Weight 131.7 kg 130.7 kg General appearance: PRESENT: no acute distress Eye exam: PRESENT: PERRLA Respiratory exam: PRESENT: crackles Cardiovascular exam: PRESENT: +S1, +S2 GI/Abdominal exam: PRESENT: distended Extremities exam: PRESENT: pedal edema Neurological exam: PRESENT: alert Results Laboratory Results: 01/24/18 04:20 01/24/18 04:20 01/22/18 01/24/18 01/24/18 16:05 04:20 04:20 WBC 3.7 L RBC 3.02 L Hgb 8.6 L Hct 25.8 L MCV 85 MCH 28.5 MCHC 33.4 RDW 16.3 H Plt Count 157 Seg Neutrophils % 64.3 Lymphocytes % 21.6 Monocytes % 9.3 Eosinophils % 3.5 Basophils % 1.3 Absolute Neutrophils 2.4 Absolute Lymphocytes 0.8 Absolute Monocytes 0.3 Absolute Eosinophils 0.1 Absolute Basophils 0.1 Sodium 147.7 H Potassium 4.6 Chloride 109 H Carbon Dioxide 26 Anion Gap 13 BUN 57 H Creatinine 2.84 H Est GFR ( Amer) 28 L Est GFR (Non-Af Amer) 23 L Glucose 105 Calcium 8.6 Magnesium 2.0 Fluid Albumin 2.6 01/23/18 01/24/18 04:27 04:20 NT-Pro-B Natriuret Pep 8330 H 7460 H Impressions: Paracentesis Ultrasound 01/22/18 13:04 IMPRESSION: Successful ultrasound-guided 10 liter diagnostic and therapeutic paracentesis Chest X-Ray 01/22/18 14:51 IMPRESSION: Moderate cardiomegaly. No acute infiltrates. Abdomen/Pelvis CT 01/22/18 14:52 IMPRESSION: Small liver. Massive ascites. Evaluation of bowel is limited because of the ascites. Assessment & Plan - Diagnosis (1) Ascites Qualifiers: Ascites type: other type Qualified Code(s): R18.8 - Other ascites Is this a current diagnosis for this admission?: Yes Plan: The SAAG is 1.3 suggesting portal hypertension the etiology of the ascites, the ascites protein is pending more than 2.5 we be consistent with cardiomyopathy (2) Acute on chronic combined systolic (congestive) and diastolic (congestive) heart failure Is this a current diagnosis for this admission?: Yes Plan: Patient probably have acute on chronic combined systolic and diastolic heart failure, echo is pending, needs to rule out pericardial disease ? constrictive pericarditis (3) Chronic kidney disease Qualifiers: Chronic kidney disease stage: stage 4 (severe) Qualified Code(s): N18.4 - Chronic kidney disease, stage 4 (severe) Is this a current diagnosis for this admission?: Yes Plan: Reduce Lasix drip, worsening kidney function
[2018-01-24] MEDS: PHARMACY COMMUNICATION ORDER MC SCH (17:21)
[2018-01-25] MEDS: HEPARIN SOD (PORCINE) 5,000 UNIT/ML 1 ML SYRINGE SUBCUT SCH ×3 (05:49→21:39)
[2018-01-25] MEDS: LANSOPRAZOLE 15 MG TAB.RAP.DR PO SCH ×2 (05:50→18:20)
[2018-01-25 06:39] LABS: ABSOLUTE EOSINOPHILS # (AUTO) 0.1 10^3/uL (0.0-0.6); ABSOLUTE LYMPHOCYTES (AUTO) 0.6 10^3/uL (0.5-4.7); ABSOLUTE MONOCYTES (AUTO) 0.5 10^3/uL (0.1-1.4); ABSOLUTE NEUT (AUTO) 4.4 10^3/uL (1.7-8.2); BASOPHILS % (AUTO) 0.9 % (0-2); EOSINOPHILS % (AUTO) 2.3 % (0-6); HEMOGLOBIN 9.1 g/dL (13.5-17.0); LYMPHOCYTES % (AUTO) 10.6 % (13-45); MEAN CORPUSCULAR HGB CONC 32.6 g/dL (32.0-36.0); MEAN CORPUSCULAR VOLUME 86 fl (80-97); MONOCYTES % (AUTO) 8.6 % (3-13); PLATELET COUNT 162 10^3/uL (150-450); RED BLOOD COUNT 3.25 10^6/uL (4.35-5.55); RED CELL DISTRIBUTION WIDTH 15.6 % (11.5-14.0); SEGMENTED NEUTROPHILS % (AUTO) 77.6 % (42-78); TOTAL CELLS COUNTED % (AUTO) 100 %; WHITE BLOOD COUNT 5.6 10^3/uL (4.0-10.5)
--- NOTE | 2018-01-25 06:51 | EKG REPORT ---
SEVERITY:- ABNORMAL ECG - SINUS RHYTHM FIRST DEGREE AV BLOCK LOW VOLTAGE WITH RIGHT AXIS DEVIATION CONSIDER ANTEROSEPTAL INFARCT BORDERLINE T ABNORMALITIES, ANTERIOR LEADS : Confirmed by: Andrew Wright 25-Jan-2018 06:50:47
[2018-01-25 07:06] LABS: ANION GAP 12 (5-19); BLOOD UREA NITROGEN 58 mg/dL (7-20); CALCIUM 8.3 mg/dL (8.4-10.2); CARBON DIOXIDE 27 mmol/L (22-30); CHLORIDE 106 mmol/L (98-107); GLUCOSE 130 mg/dL (75-110); POTASSIUM 4.6 mmol/L (3.6-5.0); SODIUM 145.4 mmol/L (137-145)
[2018-01-25] MEDS: DOCUSATE SODIUM 100 MG CAPSULE PO SCH ×2 (09:38→17:51)
[2018-01-25] MEDS: CALCIUM ACETATE 667 MG CAPSULE PO SCH ×3 (09:40→18:20)
[2018-01-25] MEDS: METOPROLOL TARTRATE 50 MG TABLET PO SCH ×2 (09:41→21:38)
[2018-01-25] MEDS: ALBUMIN HUMAN 12.5 GM/50 ML RTUINJ IV SCH ×4 (09:41→23:48)
--- NOTE | 2018-01-25 10:38 | CONSULTATION REPORT E ---
Consultation Report NAME: TONY WOODS : 1960 AGE: 57Y DATE: 01/24/2018 319 A TO: SERGEY PACK M.D. FROM: LUKAS BRODY M.D. Requesting Physician ADDENDUM DIAGNOSTICS: The patient's chest x-ray shows cardiomegaly without heart failure. There is no EKG obtained . The patient's white count is 3700, hemoglobin is 8.6, hematocrit is 25.8, platelet count is 157,000. The patient's sodium is 147.7, potassium 4.6, chloride 109, CO2 is 26. The patient's BUN is 57, creatinine is 2.84. GFR is reduced at 38 mL, which is chronic kidney disease stage 4. Earlier, on 01/23, his GFR was 31 and progression of renal failure from stage 3 to stage 4. His NT proBNP yesterday was 8330. Today is 7460. His TSH is 1.60. His lipase is 96.9. His paracentesis ascitic fluid shows a WBC of 21, RBC is 11, fluid lymphocytes 85, fluid monocytes 12, and fluid albumin is 2.6, hence it is a transudate. The patient's pro-time is 15.8, INR is 1.20, PTT is 31.9. IMPRESSION: 1. Arthritis. The differential diagnosis is: a. Secondary to congestive heart failure. b. Secondary to renal failure. c. Possible portal hypertension. d. Secondary to cirrhosis since the CT scan of the abdomen shows a small sized liver. Note that the abdominal CT without contrast showed a small liver and there is no splenomegaly. There is no tense ascites. The other differential diagnosis include: e. Amyloidosis. f. Vasculitis. g. Budd-Chiari syndrome with hepatic vein thrombosis. 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 h. Constrictive pericarditis. Would get an echocardiogram. 2. Cardiomyopathy with mildly reduced LV ejection fraction 1 year ago, pending repeat echocardiogram. 3. Hypertension. 4. Chronic kidney disease, acute on chronic from stage 3 to stage 4. 5. Congestive heart failure. 6. Obstructive sleep apnea. RECOMMENDATIONS: As mentioned earlier, would recommend changing the patient's Lopressor to Coreg with the contracted cirrhosis of the liver should be on the differential diagnosis along with the other conditions mentioned above. NOTE: The chest x-ray does not show pericardial calcifications to support a diagnosis of constricted pericarditis, but the echo should be more revealing about this. Also, will get an EKG on him. Would recommend changing the metoprolol to Cozaar. NOTE: The patient was seen at 3 p.m. and 60 minutes spent on this patient with more than 50% of the time spent in direct patient care. His medications have been reviewed. Medical decision making is of high complexity. Dr. Wright will follow the patient in the a.m. DICTATING PHYSICIAN: SERGEY PACK M.D. [id number] PHY#: [id number] ID: [id number] JOB#: [id number] ACCT: [id number] cc:SERGEY PACK M.D. > MTDD
--- NOTE | 2018-01-25 11:59 | PDOC CONSULTATION ---
Consultation Consult Date: 01/25/18 Consult reason:: Acute on chronic kidney disease stage IV History of Present Illness Admission Date/PCP: 01/22/18 15:02 LUKAS BRODY MD History of Present Illness: TONY WOODS is a 57 year old maleHistory of chronic kidney disease stage IV with base creatinine of around 2.5 in the background of hypertension and previous history of diabetes mellitus, who also has other severe comorbidities including congestive heart failure/cardiomyopathy. possible liver cirrhosis from congestive cardiomyopathy was admitted with progressive shortness of breath and severe Ascites last Thursday.He has gone on to have 10 L large volume paracentesis and the feeling better today. He denies any history of chest pains or abdominal pains. No complaints of any fever or chills. He denies being on any NSAIDs. He states he is trying to watch his diet but that is not the case as explained by his .Labs and medications were reviewed with him. Past Medical History Cardiac Medical History: Reports: Hyperlipidemia Pulmonary Medical History: Reports: Sleep Apnea Renal/ Medical History: Reports: Chronic Kidney Disease Stage IV, Secondary Hyperparathyroidism GI Medical History: Reports: Gastroesophageal Reflux Disease Psychiatric Medical History: Denies: Depression Social History Lives with: Family Smoking Status: Never Smoker Frequency of Alcohol Use: None Hx Recreational Drug Use: No Drugs: None Hx Prescription Drug Abuse: No Family History Parental Family History Reviewed: Yes - Negative for ESRD Children Family History Reviewed: No Sibling(s) Family History Reviewed.: No Medication/Allergy Home Medications: Calcium Acetate [Phoslo 667 mg Capsule] 667 mg PO MEALS 01/22/18 Furosemide [Lasix 40 mg Tablet] 40 mg PO BID 01/22/18 Metoprolol Tartrate [Lopressor 50 mg Tablet] 50 mg PO Q12 01/22/18 Allergies/Adverse Reactions: No Known Allergies Allergy (Unverified 01/22/18 12:46) Review of Systems Constitutional: PRESENT: anorexia, fatigue, headache(s), weakness, weight gain. ABSENT: fever(s), night sweats Nose, Mouth, and Throat: ABSENT: mouth pain, sore throat Cardiovascular: PRESENT: dyspnea on exertion, edema. ABSENT: orthropnea Gastrointestinal: ABSENT: abdominal pain, diarrhea, dysphagia, heartburn, hematemesis, hematochezia, nausea, vomiting Integumentary: ABSENT: erythema, lesions, pruritus, rash Neurological: ABSENT: confusion, convulsions, focal weakness Hematologic/Lymphatic: ABSENT: easy bleeding, easy bruising, lymphadenopathy Physical Exam Vital Signs: Temp Pulse Resp BP Pulse Ox 98.7 F 67 20 148/78 H 92 01/25/18 07:50 01/25/18 07:50 01/25/18 07:50 01/25/18 07:50 01/25/18 07:50 Intake & Output 01/24/18 01/25/18 01/26/18 06:59 06:59 06:59 Intake Total 2008 1975 50 Output Total 5975 4500 Balance -1121 -9891 50 Weight 130.7 kg 128.9 kg General appearance: PRESENT: no acute distress Eye exam: PRESENT: conjunctiva pink, EOMI, PERRLA. ABSENT: scleral icterus Mouth exam: PRESENT: moist, neck supple Neck exam: ABSENT: lymphadenopathy, meningismus, tenderness, thyromegaly, tracheal deviation Respiratory exam: PRESENT: crackles, decreased breath sounds. ABSENT: rhonchi Cardiovascular exam: PRESENT: +S1, +S2, systolic murmur GI/Abdominal exam: PRESENT: ascites, distended, firm, normal bowel sounds, soft. ABSENT: organomegaly, tenderness Extremities exam: PRESENT: pedal edema Neurological exam: PRESENT: alert, awake, oriented to person, oriented to place , oriented to time Skin exam: ABSENT: dry, mottled, rash Results Laboratory Results: 01/25/18 05:46 01/25/18 05:46 01/22/18 01/25/18 01/25/18 16:05 05:46 05:46 WBC 5.6 RBC 3.25 L Hgb 9.1 L Hct 28.0 L MCV 86 MCH 28.0 MCHC 32.6 RDW 15.6 H Plt Count 162 Seg Neutrophils % 77.6 Lymphocytes % 10.6 L Monocytes % 8.6 Eosinophils % 2.3 Basophils % 0.9 Absolute Neutrophils 4.4 Absolute Lymphocytes 0.6 Absolute Monocytes 0.5 Absolute Eosinophils 0.1 Absolute Basophils 0.0 Sodium 145.4 H Potassium 4.6 Chloride 106 Carbon Dioxide 27 Anion Gap 12 BUN 58 H Creatinine 2.83 H Est GFR ( Amer) 28 L Est GFR (Non-Af Amer) 23 L Glucose 130 H Calcium 8.3 L Magnesium 1.8 Fluid Total Protein 5.6 0801/24/18 01/25/18 04:27 04:20 05:46 NT-Pro-B Natriuret Pep 8330 H 7460 H 8200 H Impressions: Paracentesis Ultrasound 01/22/18 13:04 IMPRESSION: Successful ultrasound-guided 10 liter diagnostic and therapeutic paracentesis Chest X-Ray 01/22/18 14:51 IMPRESSION: Moderate cardiomegaly. No acute infiltrates. Abdomen/Pelvis CT 01/22/18 14:52 IMPRESSION: Small liver. Massive ascites. Evaluation of bowel is limited because of the ascites. Assessment & Plan - Diagnosis (1) Chronic kidney disease (CKD), stage IV (severe) Plan: History of noncompliance. Base creatinine was 2.5 and her last saw him in March 2017. 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 (2) Acute on chronic combined systolic (congestive) and diastolic (congestive) heart failure Is this a current diagnosis for this admission?: Yes Plan: Patient was on IV Lasix infusion and has had a good diuretic response and currently symptomatically better. Continue on p.o. Lasix. (3) Acute renal failure Qualifiers: Acute renal failure type: unspecified Qualified Code(s): N17.9 - Acute kidney failure, unspecified Is this a current diagnosis for this admission?: Yes Plan: Non-oliguric. Most likely a combination from his congestive heart failure and severe ascites. No evidences to indicate raised compartmental syndrome. He has had 10 L removed and has plenty more to be removed in the next many days. See responses to all of that. Advised proper diet modifications. Advised to dose medications for GFR of approximately 25 cc/min. No acute indications for renal replacements. (4) Congestive heart failure Qualifiers: Heart failure type: combined systolic and diastolic Heart failure chronicity: chronic Qualified Code(s): I50.42 - Chronic combined systolic ( congestive) and diastolic (congestive) heart failure Is this a current diagnosis for this admission?: Yes Plan: Apparently he has got a history of chronic congestive heart failure for reasons that are not clear. Possibly needs cardiology evaluation. (5) Ascites Qualifiers: Ascites type: other type Qualified Code(s): R18.8 - Other ascites Is this a current diagnosis for this admission?: Yes Plan: Severe. He is status post 1 large volume-10 L of paracentesis done last Thursday.He has done well to that. He needs a few more large volume paracentesis before he gets feeling a whole lot better. He could probably have one more in hospital and then the rest could probably be arranged as an outpatient once he is feeling better that he could be discharged.
--- NOTE | 2018-01-25 12:15 | CONSULTATION REPORT E ---
Consultation Report NAME: TONY WOODS : 1960 AGE: 57Y DATE: 01/24/2018 ROOM: 319 A TIME SEEN: 3 p.m. TO: SERGEY PACK M.D. FROM: LUKAS BRODY M.D. Requesting Physician REASON FOR CONSULTATION: Ascites secondary to congestive heart failure in a patient with cardiomyopathy and renal failure. HISTORY: The patient is a 57-year-old -[place] male with a history of chronic kidney disease stage 4, hypertension, and history of prior ascites with workup in [place] which essentially showed that the patient's LV ejection fraction was mildly reduced at 50%. At that time the patient had at least 2 hemodialysis temporarily x2 with resolution of ascites. The patient does not drink and there is no history of cirrhosis. The patient since October has been having increasing weight gain, abdominal girth, and leg edema with orthopnea but no PND. The patient denies any chest pain or discomfort. There is shortness of breath with more than moderate exertion. There are no palpitations or syncope. There are no anginal symptoms. There is no hematemesis or melena. PAST MEDICAL HISTORY: Positive for history of hypertension, past history of congestive heart failure, hyperlipidemia, and hypertension. He also has chronic kidney disease. He also has a history of sleep apnea and the patient claims that he uses CPAP. PAST SURGICAL HISTORY: Positive for Earle catheter placement in [place] in June 2016. No other surgeries. FAMILY HISTORY: Positive for hypertension. Negative for coronary artery disease. SOCIAL HISTORY: The patient never smoked. There is no history of ETOH abuse or street drug abuse. CODE STATUS: THE PATIENT IS A FULL CODE. His is his surrogate healthcare decision maker. ALLERGIES: The patient has no known drug allergies. MEDICATIONS: 1. Tylenol 650 mg p.o. every 4 hours p.r.n. 2. He did get albumin 25 grams in 100 mL during the time of paracentesis. 3. He is on PhosLo 667 mg p.o. meals. 4. He is on Colace 100 mg p.o. daily. 5. He is on Lasix 250 mg in 250 mL at 2 mL per hour. 6. He is on heparin 5000 units subcutaneously every 8 hours. 7. He is on Prevacid 50 mg p.o. b.i.d. 8. He is on metoprolol 50 mg p.o. every 12 hours. REVIEW OF SYSTEMS: CONSTITUTIONAL: Denies any fever, chills or rigors. Complains of generalized fatigue and weakness. HEAD: Denies headaches or head injury. EYES: No history of amblyopia or diplopia. No history of amaurosis fugax. EARS: No history of hearing loss. No history of tinnitus. No history of recurrent ear infections. NOSE: No history of hay fever. No history of nosebleeds. MOUTH: No history of altered taste sensation. No ulcers in the mouth. THROAT: No history of odynophagia or dysphagia. No history of recurrent sore throats. SKIN: No history of pruritus. No history of excoriation of the skin. No history of yellowish discoloration of the skin. NECK: No painful or painless swelling of the neck. No goiter. LUNGS: No history of cough or wheezing. Has shortness of breath with more than moderate exertion, but this may be related to his abdominal girth increasing. There is no history of asthma or COPD. He has a history of sleep apnea; he states that he uses CPAP. There are no recent symptoms of cough or sputum production. No wheezing. No history of pulmonary embolism. No history of hemoptysis. No history of pleuritic chest pain. CARDIAC: History of hypertension at present. History of prior congestive heart failure in [place]; when he was admitted there his EF was read as 50% which is mildly reduced. There was no significant pulmonary hypertension. He had mild mitral regurgitation. The left ventricular ejection fraction was mildly reduced at 50%. There was mild left ventricular enlargement. There was mild mitral regurgitation. No other significant coronary artery disease and no pulmonary hypertension. He has a past history of congestive heart failure. No history of cardiac arrhythmia. No history of syncope. History of leg edema present. Denies any palpitations. GASTROINTESTINAL: No history of cirrhosis and no history of jaundice but on the CT scan his liver is small, maybe he does have cirrhosis of the liver. He has ascites which is very tense and the abdomen is 2.6 on the paracentesis fluid ascitic fluid; hence, it is a transudate. He has no history of jaundice, no history of hepatitis, no history of GI bleed, no history of hematemesis or melena. No abdominal pain. RENAL: History of chronic kidney disease stage 4. No symptoms of a UTI. No history of hematuria, pyuria, dysuria. Urinalysis does not show proteinuria. ENDOCRINE: No history of diabetes mellitus. No history of thyroid disease. No history of polydipsia or polyuria. No history of heat or cold intolerance. MUSCULOSKELETAL: Denies arthritis or collagen-vascular disease. METABOLIC: No history of hyperlipidemia. No history of obesity. No history of gout. CENTRAL NERVOUS SYSTEM: No history of TIA or CVA. No history of headaches, migraines, seizures. PSYCHIATRIC: No history of anxiety or depression. No history of suicidal ideation. No history of homicidal ideation. HEMATOLOGICAL: No history of bleeding diathesis. No history of clotting disorders. VASCULAR: No history of calf or buttock claudication. No history of DVT. PHYSICAL EXAMINATION: GENERAL: The patient appears to be of frail built and appears to be chronically ill. VITAL SIGNS: He is afebrile with a temperature of 97.9 degrees Fahrenheit. Pulse is 62 beats per minute. Blood pressure is 166/91. Respirations are 16 per minute. O2 sats are 97% on room air. HEENT: Head - Atraumatic and normocephalic. Eyes - Pupils are equal, round, regular, reactive to light and accommodation. Extraocular movements are normal. There is no conjunctival pallor. There is no scleral icterus. Ears - Tympanic membranes are intact. External auditory canals are clear. Nose - There is no deviated nasal septum. There is no inflammation of the nasal mucous membranes. Mouth - Mucous membranes of the mouth are moist. The tongue is moist. There are no ulcers. There is no bleeding from the gums. Throat - There is no redness of the oropharynx. There are no exudates. SKIN: There are no skin rashes. There are no skin lesions. There is no petechia or ecchymosis. NECK: Supple. There is mild JVD present. Carotids are equal. There is no lymphadenopathy. There is no goiter. There is no carotid bruit. There is no thyromegaly. Trachea is central. LUNGS: Clear to auscultation and percussion without any rhonchi, rales, or wheezing. There are no rales of CHF. There is no chest wall tenderness. HEART: S1, S2 is heard. There is no S3 gallop. There is no S4 gallop. There is a systolic murmur of mild mitral regurgitation present. There is no rub. S1 is normal intensity. ABDOMEN: Distended with tense ascites. There is no hepatosplenomegaly. Bowel sounds are well heard. There are no tender areas or masses. EXTREMITIES: Femorals are diminished. Leg pulses are diminished. There is 2+ edema bilaterally. Leg pulses are difficult to palpate; they are diminished. There is no DVT or cellulitis. There is chronic venous stasis dermatitis changes. There is no cellulitis. There is no cyanosis or clubbing. There is no calf tenderness. CENTRAL NERVOUS SYSTEM: The patient is conscious, awake, alert, oriented x3 with no focal deficits. PSYCHIATRIC: The patient's judgement and insight are intact. His affect is normal. The patient . DICTATION ENDS HERE DICTATING PHYSICIAN: SERGEY PACK M.D. [id number] PHY#: [id number] ID: [id number] JOB#: [id number] ACCT: [id number] cc:SERGEY PACK M.D. >
[2018-01-25] MEDS ORDERED: LIDOCAINE 1% INJ-PF (10 MG/ML) 30 ML SDV ONE (15:49)
--- NOTE | 2018-01-25 16:13 | PDOC PROGRESS REPORT ---
Subjective Progress Note for:: 01/25/18 Subjective:: Patient is currently doing well Should have a paracentesis done last fridat little fluid out still Shaun's were distended Patient's fluid albumin gradient is 1.3 with suggest most likely portal hypertension'sThere are several different cause including the cardiac versus low albumin versus underlying liver disease Patient's currently the Lasix drips feeling much better Reason For Visit: CHF/SOB Physical Exam Vital Signs: Temp Pulse Resp BP Pulse Ox 98.9 F 70 20 135/68 H 98 01/25/18 11:39 01/25/18 14:00 01/25/18 11:39 01/25/18 11:39 01/25/18 11:39 Intake & Output 01/24/18 01/25/18 01/26/18 06:59 06:59 06:59 Intake Total 2008 1975 302 Output Total 5975 4500 500 Balance -3966 -2524 -198 Weight 130.7 kg 128.9 kg General appearance: PRESENT: no acute distress, well-developed, well-nourished Head exam: PRESENT: atraumatic, normocephalic Eye exam: PRESENT: conjunctiva pink, EOMI, PERRLA. ABSENT: scleral icterus Ear exam: PRESENT: normal external ear exam Mouth exam: PRESENT: moist, tongue midline Neck exam: PRESENT: full ROM. ABSENT: carotid bruit, JVD, lymphadenopathy, thyromegaly Respiratory exam: PRESENT: clear to auscultation darline Cardiovascular exam: PRESENT: RRR. ABSENT: diastolic murmur, rubs, systolic murmur Pulses: PRESENT: normal dorsalis pedis pul, +2 pedal pulses bilateral Vascular exam: PRESENT: normal capillary refill GI/Abdominal exam: PRESENT: ascites, distended, normal bowel sounds, soft. ABSENT: guarding, mass, organolmegaly, rebound, tenderness Rectal exam: PRESENT: deferred Extremities exam: PRESENT: pedal edema Musculoskeletal exam: PRESENT: ambulatory Neurological exam: PRESENT: alert, awake, oriented to person, oriented to place , oriented to time, oriented to situation, CN II-XII grossly intact. ABSENT: motor sensory deficit Psychiatric exam: PRESENT: appropriate affect, normal mood. ABSENT: homicidal ideation, suicidal ideation Skin exam: PRESENT: dry, intact, warm. ABSENT: cyanosis, rash Results Laboratory Results: 01/25/18 05:46 08/06/18 05:46 01/22/18 01/25/18 01/25/18 16:05 05:46 05:46 WBC 5.6 RBC 3.25 L Hgb 9.1 L Hct 28.0 L MCV 86 MCH 28.0 MCHC 32.6 RDW 15.6 H Plt Count 162 Seg Neutrophils % 77.6 Lymphocytes % 10.6 L Monocytes % 8.6 Eosinophils % 2.3 Basophils % 0.9 Absolute Neutrophils 4.4 Absolute Lymphocytes 0.6 Absolute Monocytes 0.5 Absolute Eosinophils 0.1 Absolute Basophils 0.0 Sodium 145.4 H Potassium 4.6 Chloride 106 Carbon Dioxide 27 Anion Gap 12 BUN 58 H Creatinine 2.83 H Est GFR ( Amer) 28 L Est GFR (Non-Af Amer) 23 L Glucose 130 H Calcium 8.3 L Magnesium 1.8 Fluid Total Protein 5.6 01/23/18 01/24/18 01/25/18 04:27 04:20 05:46 NT-Pro-B Natriuret Pep 8330 H 7460 H 8200 H Impressions: Paracentesis Ultrasound 01/22/18 13:04 IMPRESSION: Successful ultrasound-guided 10 liter diagnostic and therapeutic paracentesis Chest X-Ray 01/22/18 14:51 IMPRESSION: Moderate cardiomegaly. No acute infiltrates. Abdomen/Pelvis CT 01/22/18 14:52 IMPRESSION: Small liver. Massive ascites. Evaluation of bowel is limited because of the ascites. Assessment & Plan - Diagnosis (1) Ascites Qualifiers: Ascites type: other type Qualified Code(s): R18.8 - Other ascites Is this a current diagnosis for this admission?: Yes Plan: We will repeat the paracentesis because still very distended fluid we will order the fluid LDH in the serum LDH will wait for the fluid protein we will also consult the GI Will await the echocardiogram report (2) Congestive heart failure Qualifiers: Heart failure type: combined systolic and diastolic Heart failure chronicity: chronic Qualified Code(s): I50.42 - Chronic combined systolic ( congestive) and diastolic (congestive) heart failure Is this a current diagnosis for this admission?: Yes Plan: Start the patient on the Lasix drips although the echocardiogram consult the cardiology (3) Acute renal failure Qualifiers: Acute renal failure type: unspecified Qualified Code(s): N17.9 - Acute kidney failure, unspecified Is this a current diagnosis for this admission?: Yes Plan: Patient's baseline creatinine is 2.5 we will consult the doctor Eboni discussed with him today to start the Lasix drips and the paracentesis and will get the echo and CT scan and further workup (4) Chronic kidney disease Qualifiers: Chronic kidney disease stage: stage 4 (severe) Qualified Code(s): N18.4 - Chronic kidney disease, stage 4 (severe) Is this a current diagnosis for this admission?: Yes Plan: Follow with Dr. Wright (5) Hypertension Qualifiers: Hypertension type: essential hypertension Qualified Code(s): I10 - Essential (primary) hypertension Is this a current diagnosis for this admission?: Yes Plan: Continues the current medication (6) Protein calorie malnutrition Qualifiers: Protein-calorie malnutrition severity: moderate Qualified Code(s): E44.0 - Moderate protein-calorie malnutrition Is this a current diagnosis for this admission?: Yes Plan: Recheck the prealbumin and albumin replaced albumin (7) Noncompliance Is this a current diagnosis for this admission?: Yes - Time Time Spent with patient: 15-24 minutes Medications reviewed and adjusted accordingly: Yes Anticipated discharge: Home Within: Other - Inpatient Certification Medical Necessity: Need Close Monitoring Due to Risk of Patient Decompensation Post Hospital Care: D/C Systems Mgr Documentation - Plan Summary Plan Summary: Continues to current medications we ordered another paracentesis
[2018-01-25] MEDS: FUROSEMIDE 40 MG TABLET PO SCH (18:11)
[2018-01-25] MEDS: PHARMACY COMMUNICATION ORDER MC SCH (18:13)
--- NOTE | 2018-01-25 18:22 | RADIOLOGY REPORT (SQ) ---
EXAM DESCRIPTION: U/S ABDOMEN LIMITED W/O DOP COMPLETED DATE/TIME: 01/25/2018 6:11 pm REASON FOR STUDY: ascitis, eval liver, portal vein COMPARISON: Abdominal CT scan dated 01/22/2018 TECHNIQUE: Dynamic and static grayscale images acquired of the abdomen and recorded on PACS. Additio nal selected color Doppler and spectral images recorded. LIMITATIONS: Study is limited due to the patient's body habitus and overlying bowel gas. FINDINGS: PANCREAS: The pancreas was not well visualized due to overlying bowel gas. LIVER: There is limited visualization of the liver. No masses are identified. LIVER VASCULATURE: Limited visualization. GALLBLADDER: No stones. Normal wall thickness. No pericholecystic fluid. ULTRASOUND-DETECTED REID'S SIGN: Negative. INTRAHEPATIC DUCTS AND COMMON DUCT: CBD and intrahepatic ducts normal caliber. No filling defects. INFERIOR VENA CAVA: Normal flow. AORTA: No aneurysm. RIGHT KIDNEY: 11 cm in length. Normal echogenicity. No solid or suspicious masses. No hydronephrosis . No calcifications. PERITONEAL AND RIGHT PLEURAL SPACE: Ascitic fluid was identified. OTHER: No other significant findings. IMPRESSION: Limited study as noted above. Ascitic fluid is identified. No other significant intra- abdominal abnormalities were identified. TECHNICAL DOCUMENTATION: JOB ID: [id number] [employer]- All Rights Reserved Reading location - IP/workstation name: [email or web address]
--- NOTE | 2018-01-25 19:35 | XCELERA REPORT ---
[address] [address] Transthoracic Echocardiogram Report Name: TONY WOODS Age: 57 yrs Gender: Male : 1960 Patient Status: Inpatient Patient Location: [address] [place] [address] Study Date: 01/25/2018 10:32 AM Procedure: A complete two-dimensional transthoracic echocardiogram was performed (2D, M-mode, spectral and color flow Doppler). The study was technically adequate with some images being suboptimal in quality. Reason For Study: CHF Ordering Physician: Parish Performed By: Marilia Olsen Interpretation Summary The left ventricular ejection fraction is normal. Doppler measurements suggest pseudonormalized left ventricular relaxation, which is associated with grade II/IV or mild to moderate diastolic dysfunction There is mild asymmetric left ventricular hypertrophy. The left ventricle is grossly normal size. Wall motion cannot be accurately commented on, but no definite regional wall motion abnormalities noted. The right ventricle is mild to moderately dilated. The right ventricular systolic function is normal. The right atrium is normal in size The left atrium is moderately dilated. There is a trace amount of mitral regurgitation There is no mitral valve stenosis. There is no aortic valve stenosis No aortic regurgitation is present. There is a trace to mild amount of tricuspid regurgitation There is mild to moderate pulmonary hypertension by echo Right ventricular systolic pressure is estimated to be elevated at 40- 50mmHg. The aortic root is not well visualized but is probably normal size. The inferior vena cava was not well visualized Minimal pericardial effusion. MMode/2D Measurements & Calculations RVDd: 4.4 cm LVIDd: 6.5 cm FS: 49.4 % Ao root diam: 3.0 cm IVSd: 0.87 cm LVIDs: 3.3 cm EDV(Teich): 216.5 mlAo root area: 7.0 cm2 LVPWd: 0.75 cmESV(Teich): 44.0 ml EF(Teich): 79.7 % LVOT diam: 1.8 cm LVOT area: 2.5 cm2 Doppler Measurements & Calculations MV E max vasyl: MV dec slope: Ao V2 max: LV V1 max P.7 cm/sec 123.4 cm/sec 2.8 mmHg MV A max vasyl: 701.5 cm/sec2 Ao max PG: LV V1 max: 50.5 cm/sec MV dec time: 6.1 mmHg 83.4 cm/sec MV E/A: 2.4 0.17 sec STAFNORD(V,D): 1.7 cm2 PA V2 max: PI max vasyl: TR max vasyl: 80.9 cm/sec 242.2 cm/sec 295.8 cm/sec PA max P.6 mmHgPI max P.5 mmHg TR max PG: PI dec slope: 35.0 mmHg 134.8 cm/sec2 Left Ventricle The left ventricle is grossly normal size. There is mild asymmetric left ventricular hypertrophy. The left ventricular ejection fraction is normal. Doppler measurements suggest pseudonormalized left ventricular relaxation, which is associated with grade II/IV or mild to moderate diastolic dysfunction. Wall motion cannot be accurately commented on, but no definite regional wall motion abnormalities noted. Right Ventricle The right ventricle is mild to moderately dilated. There is normal right ventricular wall thickness. The right ventricular systolic function is normal. Atria The right atrium is normal in size. The left atrium is moderately dilated. Interarterial septum not well visualized and not well dopplered. Cannot comment on ASD/PFO presence. Mitral Valve The mitral valve is grossly normal. There is no mitral valve stenosis. There is a trace amount of mitral regurgitation. Aortic Valve The aortic valve is grossly normal. There is no aortic valve stenosis. No aortic regurgitation is present. Tricuspid Valve The tricuspid valve is not well visualized, but is grossly normal. There is no tricuspid stenosis. There is a trace to mild amount of tricuspid regurgitation. There is mild to moderate pulmonary hypertension by echo. Right ventricular systolic pressure is estimated to be elevated at 40- 50mmHg. Great Vessels The aortic root is not well visualized but is probably normal size. The inferior vena cava was not well visualized. Effusions Minimal pericardial effusion. : 101 > Andrew Wright
--- NOTE | 2018-01-25 19:46 | PDOC PROGRESS REPORT ---
Subjective Progress Note for:: 01/25/18 Subjective:: Patient seems to be doing better with gradual improvement. Pt is denying any chest arm or neck discomfort. Patient denying any PND, orthopnea. Patient denied any sustained palpitations, dizziness, syncope, near syncope. Patient denying any fever chills. Patient denying any other significant discomfort. Still has significant abdominal distention and ascites. Patient is maintaining sinus rhythm. Review of systems: Rest review of systems negative. Medications: Medications have been reviewed. Reason For Visit: CHF/SOB Physical Exam Vital Signs: Temp Pulse Resp BP Pulse Ox 98.9 F 70 20 135/68 H 98 01/25/18 11:39 01/25/18 14:00 01/25/18 11:39 01/25/18 11:39 01/25/18 11:39 Intake & Output 01/24/18 01/25/18 01/26/18 06:59 06:59 06:59 Intake Total 2008 1976 824 Output Total 5975 4500 1100 Balance -3603 -1254 -886 Weight 130.7 kg 128.9 kg Exam: GENERAL: well-nourished and in no acute distress. Alert and oriented x3 HEAD: Atraumatic, normocephalic. EYES: Pupils equal round and reactive to light, extraocular movements intact, sclera anicteric, conjunctiva are normal. ENT: TMs normal, nares patent, oropharynx clear without exudates. Moist mucous membranes. No oral ulcerations or bleeding gums noted NECK: supple without lymphadenopathy. Trachea is central. No cervical or axillary lymphadenopathy noted. Carotids are 2+, JVD 12 cm LUNGS: Respiration seems nonlabored, no significant accessory muscle action noted. Breath sounds clear to auscultation bilaterally and equal noted. No wheezes rales or rhonchi noted. Diminished breath sounds noted both bases, possibly due to pleural effusion along with some dullness. CHEST: Palpation of the chest wall shows no significant chest wall tenderness. HEART: [employer], No PSH, 1/6 DEL aortic area, 1/6 chahal systolic murmur mitral area, no rubs, no gallops. ABDOMEN: Soft, abdomen is severely distended and somewhat tense because of large ascites, normoactive bowel sounds. No guarding, no rebound. No rigidity noted . No masses appreciated. EXTREMITIES: Pedal pulses are 1-2+, no calf tenderness noted. No clubbing or cyanosis. 1-2+ pedal edema noted NEUROLOGICAL: Focused neurological exam showed no significant neurologic deficit. Normal speech, no focal weakness appreciated. PSYCH: Normal mood, normal affect. Judgment and insight within normal limits. SKIN: No significant ecchymosis, skin is noted to be warm. MUSCULOSKELETAL EXAM: No significant acute joint swelling noted. Results Laboratory Results: 01/25/18 05:46 01/25/18 05:46 01/22/18 01/25/18 01/25/18 16:05 05:46 05:46 WBC 5.6 RBC 3.25 L Hgb 9.1 L Hct 28.0 L MCV 86 MCH 28.0 MCHC 32.6 RDW 15.6 H Plt Count 162 Seg Neutrophils % 77.6 Lymphocytes % 10.6 L Monocytes % 8.6 Eosinophils % 2.3 Basophils % 0.9 Absolute Neutrophils 4.4 Absolute Lymphocytes 0.6 Absolute Monocytes 0.5 Absolute Eosinophils 0.1 Absolute Basophils 0.0 Sodium 145.4 H Potassium 4.6 Chloride 106 Carbon Dioxide 27 Anion Gap 12 BUN 58 H Creatinine 2.83 H Est GFR ( Amer) 28 L Est GFR (Non-Af Amer) 23 L Glucose 130 H Calcium 8.3 L Magnesium 1.8 Fluid Total Protein 5.6 01/23/18 01/24/18 01/25/18 04:27 04:20 05:46 NT-Pro-B Natriuret Pep 8330 H 7460 H 8200 H EKG Comments: Low voltage all over, no acute ST-T wave changes, sinus rhythm noted. Impressions: Chest X-Ray 01/22/18 14:51 IMPRESSION: Moderate cardiomegaly. No acute infiltrates. Abdomen/Pelvis CT 01/22/18 14:52 IMPRESSION: Small liver. Massive ascites. Evaluation of bowel is limited because of the ascites. Abdomen Ultrasound 01/25/18 00:00 IMPRESSION: Limited study as noted above. Ascitic fluid is identified. No other significant intra-abdominal abnormalities were identified. Assessment & Plan - Diagnosis (1) Ascites Qualifiers: Ascites type: other type Qualified Code(s): R18.8 - Other ascites Is this a current diagnosis for this admission?: Yes (2) Chronic kidney disease Qualifiers: Chronic kidney disease stage: stage 4 (severe) Qualified Code(s): N18.4 - Chronic kidney disease, stage 4 (severe) Is this a current diagnosis for this admission?: Yes (3) Congestive heart failure Qualifiers: Heart failure type: combined systolic and diastolic Heart failure chronicity: chronic Qualified Code(s): I50.42 - Chronic combined systolic ( congestive) and diastolic (congestive) heart failure Is this a current diagnosis for this admission?: Yes (4) Hypertension Qualifiers: Hypertension type: essential hypertension Qualified Code(s): I10 - Essential (primary) hypertension Is this a current diagnosis for this admission?: Yes (5) Noncompliance Is this a current diagnosis for this admission?: Yes (6) Obesity Qualifiers: Obesity type: unspecified obesity type Obesity classification: unspecified obesity classification Is this a current diagnosis for this admission?: Yes (7) Sleep apnea syndrome Qualifiers: Sleep apnea type: unspecified type Qualified Code(s): G47.30 - Sleep apnea , unspecified Is this a current diagnosis for this admission?: Yes - Notes Notes: Agree with paracentesis. Based on echocardiogram, LVEF is well preserved. Ascites could well be related to hepatic cause, patient is noted to have small liver. Have ordered a ultrasound of the abdomen to look at liver and more detailed and to rule out any portal vein thrombosis. Continue diuretic therapy. Added spironolactone to the regimen. Ascites: Patient has rather a large and significant ascites. There are multiple differential diagnosis. This includes cirrhosis of the liver, pericardial constriction, portal vein thrombosis, chronic right heart failure. A 2D echocardiogram has been ordered. Agree with paracentesis and diuretic therapy. Chronic kidney disease: Nephrology is following. Follow renal functions. CHF: JVP is noted to be elevated. Patient showing predominantly right-sided CHF findings. Continue diuretic therapy. Hypertension: Currently blood pressure under reasonable control. Noncompliance: Patient has been noncompliant with medication diet and treatment of sleep apnea. Patient will benefit from further evaluation and management of sleep apnea. Sleep apnea syndrome: Patient claims a previous diagnosis of sleep apnea but never really got on CPAP therapy. This may need to be evaluated further as an outpatient. Treatment of sleep apnea will often help right heart failure. Obesity: Discussed that obesity and hepatic steatosis is now a cause of cirrhosis of liver. Patient will benefit from gradual weight loss but this can be carried out as an outpatient. Ascites could account for his recent weight gain could be related to ascites. - Time Time with patient: Greater than 35 minutes - More than 50% of the time spent coordinating care, discussing management plans with involved caregivers. Management plans discussed with involved personnels. Medical decision making was of moderate to high complexity, patient's has multiple comorbidities. Medications reviewed and adjusted accordingly: Yes
--- NOTE | 2018-01-25 20:40 | PDOC CONSULTATION ---
Consultation Consult Date: 01/25/18 History of Present Illness Admission Date/PCP: 01/22/18 15:02 LUKAS BRODY MD History of Present Illness: TONY WOODS is a 57 year old male Patient was admitted on October 22, 2017 with CHF ascites. History was obtained from the patient and his . He has been noticing increasing abdominal swelling over the last many months. He has gained 35 pounds in the last few months. He denies abdominal pain, nausea, vomiting, or diarrhea. His bowels move regularly. I reviewed the medical record from [place] when he was admitted between June and July 2016. He was diagnosed with anasarca, acute on chronic renal disease with temporary dialysis, CHF, and diabetes. His creatinine was as high as 5 during that admission but his albumin was above 3. He apparently had paracenteses during that admission and he had 10 L removed in June 2016. I do not see any hepatitis or autoimmune serology though there was a mention that this will be performed. He was not told of any particular etiology for his ascites. On admission this time his CT scan showed a relatively small liver with unremarkable spleen and massive ascites. He does not drink alcohol and has no previous history of hepatitis. He has been on furosemide 40 mg twice a day at home. There is no previous history of hematemesis, change in mental status or diagnosis of encephalopathy. He has never had an EGD or colonoscopy. He had 10 L of fluid removed on 01/22/2018 with a fluid albumin of 2.6 and a serum albumin of 3.9 giving a gradient of 1.3. Cytology was requested but I do not have the results. Cell count was unremarkable. His sodium was 150 with a creatinine of 2.9 and a BUN of 65 on admission suggestive of some dehydration. Past Medical History Medical History: Other - Chronic renal disease, ascites, CHF with mild depressed ejection fraction, diabetes, hypertension, morbid obesity, cardiorenal syndrome, sleep apnea, noncompliance Cardiac Medical History: Reports: Congestive Heart Failure, Hyperlipidema, Hypertension Pulmonary Medical History: Reports: Sleep Apnea Renal/ Medical History: Reports: Chronic Kidney Disease GI Medical History: Reports: Gastroesophageal Reflux Disease Psychiatric Medical History: Denies: Depression Hematology: Reports: Anemia Social History Lives with: Family Smoking Status: Never Smoker Frequency of Alcohol Use: None Hx Recreational Drug Use: No Drugs: None Hx Prescription Drug Abuse: No Family History Family History: Reviewed & Not Pertinent Parental Family History Reviewed: No Children Family History Reviewed: NA Sibling(s) Family History Reviewed.: NA Medication/Allergy Home Medications: Calcium Acetate [Phoslo 667 mg Capsule] 667 mg PO MEALS 01/22/18 Furosemide [Lasix 40 mg Tablet] 40 mg PO BID 01/22/18 Metoprolol Tartrate [Lopressor 50 mg Tablet] 50 mg PO Q12 01/22/18 Allergies/Adverse Reactions: No Known Allergies Allergy (Unverified 01/22/18 12:46) Review of Systems All systems: reviewed and no additional remarkable complaints except as stated Physical Exam Vital Signs: Temp Pulse Resp BP Pulse Ox 98.5 F 69 16 160/70 H 99 01/25/18 19:32 01/25/18 19:32 01/25/18 19:32 01/25/18 19:32 01/25/18 19:32 Intake & Output 01/24/18 01/25/18 01/26/18 06:59 06:59 06:59 Intake Total 2008 1975 824 Output Total 5962 4500 1100 Balance -3966 -2524 -276 Weight 130.7 kg 128.9 kg Exam: General: Patient is alert with a flat affect. HEENT: There is some pallor but no jaundice. PERRLA. Oropharynx normal Respiratory: No chest deformity. No respiratory distress. Chest wall palpitation was unremarkable. Breath sounds were normal Cardiovascular: Heart sounds 1 and 2 normal with no murmurs. Abdominal: Soft and distended with ascites. No masses felt and no significant tenderness. Extremities: He has chronic sores on his legs Neurological: Alert and oriented x4. Grossly nonfocal. Normal speech Psychological: Flat affect Results Laboratory Results: 01/25/18 05:46 01/25/18 05:46 01/22/18 01/25/18 01/25/18 16:05 05:46 05:46 WBC 5.6 RBC 3.25 L Hgb 9.1 L Hct 28.0 L MCV 86 MCH 28.0 MCHC 32.6 RDW 15.6 H Plt Count 162 Seg Neutrophils % 77.6 Lymphocytes % 10.6 L Monocytes % 8.6 Eosinophils % 2.3 Basophils % 0.9 Absolute Neutrophils 4.4 Absolute Lymphocytes 0.6 Absolute Monocytes 0.5 Absolute Eosinophils 0.1 Absolute Basophils 0.0 Sodium 145.4 H Potassium 4.6 Chloride 106 Carbon Dioxide 27 Anion Gap 12 BUN 58 H Creatinine 2.83 H Est GFR ( Amer) 28 L Est GFR (Non-Af Amer) 23 L Glucose 130 H Calcium 8.3 L Magnesium 1.8 Fluid Total Protein 5.6 01/23/18 01/24/18 01/25/18 04:27 04:20 05:46 NT-Pro-B Natriuret Pep 8330 H 7460 H 8200 H Impressions: Chest X-Ray 01/22/18 14:51 IMPRESSION: Moderate cardiomegaly. No acute infiltrates. Abdomen/Pelvis CT 01/22/18 14:52 IMPRESSION: Small liver. Massive ascites. Evaluation of bowel is limited because of the ascites. Abdomen Ultrasound 01/25/18 00:00 IMPRESSION: Limited study as noted above. Ascitic fluid is identified. No other significant intra-abdominal abnormalities were identified. Assessment & Plan - Diagnosis (1) Ascites Qualifiers: Ascites type: other type Qualified Code(s): R18.8 - Other ascites Is this a current diagnosis for this admission?: Yes Plan: He has significant ascites that has been present for more than a year. This is most likely related to cirrhosis. He has been on furosemide twice a day for a while but he has continued to have increasing ascites requiring paracentesis now. He also appeared dehydrated on admission possibly related to his use of furosemide. I will suggest another paracenteses prior to being discharged with albumin coverage while reducing his furosemide to 40 mg daily. Low-salt diet was emphasized. He may also benefit from Midodrin to help with renal perfusion. (2) Cirrhosis Is this a current diagnosis for this admission?: Yes Plan: Cirrhosis is suggested by his relatively small liver on CAT scan. Previous ultrasound in [place] did not show a small liver. His cirrhosis may be related to his CHF but would need to rule out hepatitis and autoimmune etiology. He will need an EGD at some point to look for varices. I will follow him in the office on his cirrhosis (3) Chronic kidney disease Qualifiers: Chronic kidney disease stage: stage 4 (severe) Qualified Code(s): N18.4 - Chronic kidney disease, stage 4 (severe) Is this a current diagnosis for this admission?: Yes (4) Congestive heart failure Qualifiers: Heart failure type: combined systolic and diastolic Heart failure chronicity: chronic Qualified Code(s): I50.42 - Chronic combined systolic ( congestive) and diastolic (congestive) heart failure Is this a current diagnosis for this admission?: Yes (5) Anemia Qualifiers: Anemia type: due to chronic kidney disease Is this a current diagnosis for this admission?: Yes Plan: This is probably related to his chronic diseases. He will need a colonoscopy as outpatient
[2018-01-26 05:40] LABS: ABSOLUTE RETICS # 0.057 10^6/uL (0.028-0.122); HEMATOCRIT 27.8 % (37.9-51.0); MEAN CORPUSCULAR HEMOGLOBIN 27.7 pg (27.0-33.4); MEAN CORPUSCULAR HGB CONC 32.5 g/dL (32.0-36.0); MEAN CORPUSCULAR VOLUME 85 fl (80-97); PLATELET COUNT 157 10^3/uL (150-450); RED BLOOD COUNT 3.27 10^6/uL (4.35-5.55); RED CELL DISTRIBUTION WIDTH 15.9 % (11.5-14.0); RETICULOCYTE COUNT (AUTO) 1.75 % (0.66-2.85); WHITE BLOOD COUNT 5.1 10^3/uL (4.0-10.5)
[2018-01-26] MEDS: HEPARIN SOD (PORCINE) 5,000 UNIT/ML 1 ML SYRINGE SUBCUT SCH ×3 (05:42→22:13)
[2018-01-26] MEDS: LANSOPRAZOLE 15 MG TAB.RAP.DR PO SCH ×2 (05:42→17:09)
[2018-01-26 05:57] LABS: ANION GAP 11 (5-19); BLOOD UREA NITROGEN 57 mg/dL (7-20); CARBON DIOXIDE 29 mmol/L (22-30); CHLORIDE 106 mmol/L (98-107); GLUCOSE 116 mg/dL (75-110); IRON(TIBC) 10.8 ug/dL (49-181); POTASSIUM 4.6 mmol/L (3.6-5.0)
[2018-01-26 07:06] LABS: FOLATE 4.41 ng/mL (>2.76)
[2018-01-26] MEDS: CALCIUM ACETATE 667 MG CAPSULE PO SCH ×3 (08:46→17:09)
--- NOTE | 2018-01-26 08:51 | PDOC PROGRESS REPORT ---
Subjective Progress Note for:: 01/26/18 Subjective:: Patient is currently doing much better underwent for another paracentesis Patients otherwise off the Lasix drip Seen by nephrology and the GI pt is denied any chest pain denied any shortness of the breath Reason For Visit: CHF/SOB Physical Exam Vital Signs: Temp Pulse Resp BP Pulse Ox 99.0 F 67 18 148/74 H 95 01/26/18 07:33 01/26/18 07:33 01/26/18 07:33 01/26/18 07:33 01/26/18 07:33 Intake & Output 01/25/18 01/26/18 01/27/18 06:59 06:59 06:59 Intake Total 1976 1114 Output Total 4500 2500 Balance -2524 -1386 Weight 128.9 kg 118.4 kg General appearance: PRESENT: no acute distress, well-developed, well-nourished Head exam: PRESENT: atraumatic, normocephalic Eye exam: PRESENT: conjunctiva pink, EOMI, PERRLA. ABSENT: scleral icterus Ear exam: PRESENT: normal external ear exam Mouth exam: PRESENT: moist, tongue midline Neck exam: PRESENT: full ROM. ABSENT: carotid bruit, JVD, lymphadenopathy, thyromegaly Respiratory exam: PRESENT: clear to auscultation darline Cardiovascular exam: PRESENT: RRR. ABSENT: diastolic murmur, rubs, systolic murmur Pulses: PRESENT: normal dorsalis pedis pul, +2 pedal pulses bilateral Vascular exam: PRESENT: normal capillary refill GI/Abdominal exam: PRESENT: ascites, normal bowel sounds, soft. ABSENT: distended, guarding, mass, organolmegaly, rebound, tenderness Rectal exam: PRESENT: deferred Extremities exam: PRESENT: pedal edema Musculoskeletal exam: PRESENT: ambulatory Neurological exam: PRESENT: alert, awake, oriented to person, oriented to place , oriented to time, oriented to situation, CN II-XII grossly intact. ABSENT: motor sensory deficit Psychiatric exam: PRESENT: appropriate affect, normal mood. ABSENT: homicidal ideation, suicidal ideation Skin exam: PRESENT: dry, intact, warm. ABSENT: cyanosis, rash Results Laboratory Results: 01/26/18 05:01 01/26/18 05:01 01/26/18 01/26/18 05:01 05:01 WBC 5.1 RBC 3.27 L Hgb 9.0 L Hct 27.8 L MCV 85 MCH 27.7 MCHC 32.5 RDW 15.9 H Plt Count 157 Retic Count (auto) 1.75 Absolute Retic 0.057 Sodium 146.0 H Potassium 4.6 Chloride 106 Carbon Dioxide 29 Anion Gap 11 BUN 57 H Creatinine 2.63 H Est GFR ( Amer) 31 L Est GFR (Non-Af Amer) 25 L Glucose 116 H Calcium 8.0 L Iron 10.8 L TIBC 182 L % Saturation 6 Ferritin 92.00 Vitamin B12 489.0 Folate 4.41 01/23/18 01/24/18 01/25/18 04:27 04:20 05:46 NT-Pro-B Natriuret Pep 8330 H 7460 H 8200 H Impressions: Chest X-Ray 01/22/18 14:51 IMPRESSION: Moderate cardiomegaly. No acute infiltrates. Abdomen/Pelvis CT 01/22/18 14:52 IMPRESSION: Small liver. Massive ascites. Evaluation of bowel is limited because of the ascites. Abdomen Ultrasound 01/25/18 00:00 IMPRESSION: Limited study as noted above. Ascitic fluid is identified. No other significant intra-abdominal abnormalities were identified. Assessment & Plan - Diagnosis (1) Ascites Qualifiers: Ascites type: other type Qualified Code(s): R18.8 - Other ascites Is this a current diagnosis for this admission?: Yes Plan: With unclear etiology most likely cirrhosis of the liver possible from cardiac but the echocardiogram looks stable per the cardiology follow-up outpatients continues to Lasix (2) Congestive heart failure Qualifiers: Heart failure type: combined systolic and diastolic Heart failure chronicity: chronic Qualified Code(s): I50.42 - Chronic combined systolic ( congestive) and diastolic (congestive) heart failure Is this a current diagnosis for this admission?: Yes Plan: Currently all stable (3) Acute renal failure Qualifiers: Acute renal failure type: unspecified Qualified Code(s): N17.9 - Acute kidney failure, unspecified Is this a current diagnosis for this admission?: Yes Plan: Currently follow with the nephrology all stable (4) Chronic kidney disease Qualifiers: Chronic kidney disease stage: stage 4 (severe) Qualified Code(s): N18.4 - Chronic kidney disease, stage 4 (severe) Is this a current diagnosis for this admission?: Yes Plan: Follow with Dr. Wright (5) Hypertension Qualifiers: Hypertension type: essential hypertension Qualified Code(s): I10 - Essential (primary) hypertension Is this a current diagnosis for this admission?: Yes Plan: Continues the current medication (6) Protein calorie malnutrition Qualifiers: Protein-calorie malnutrition severity: moderate Qualified Code(s): E44.0 - Moderate protein-calorie malnutrition Is this a current diagnosis for this admission?: Yes Plan: Recheck the prealbumin and albumin replaced albumin (7) Noncompliance Is this a current diagnosis for this admission?: Yes - Time Time Spent with patient: 15-24 minutes Medications reviewed and adjusted accordingly: Yes Anticipated discharge: Home Within: within 24 hours - Inpatient Certification Medical Necessity: Need Close Monitoring Due to Risk of Patient Decompensation Post Hospital Care: D/C Civil Preparedness Coordinator Documentation - Plan Summary Plan Summary: Patients is currently doing much better patients almost 12 kg weight after removing the 20 L of fluid Very extensive discussion with the patient and the family at the bedside regarding the all the test reports and compliance in the follow-up Hopefully discharge patients tomorrow if remains stable
--- NOTE | 2018-01-26 09:12 | RADIOLOGY REPORT (SQ) ---
EXAM DESCRIPTION: U/S ABD PARACENTESIS COMPLETED DATE/TIME: 01/25/2018 5:31 pm REASON FOR STUDY: ascites COMPARISON None. LIMITATIONS: None. PROCEDURE: After obtaining informed consent, the patient was brought to the ultrasound suite. The p rocedure was performed with the patient on a gurney. Ultrasound was used to identify a prominent poc ket of ascites in the right lower quadrant. An appropriate access site was selected. The patient wa s prepped and draped in usual sterile fashion. The access site was anesthetized with 3 mL 1% lidoca ine. A Hmvf-S-Gwgafbtb needle was advanced into the fluid. After aspiration of fluid the needle, th e catheter was advanced off the needle into the fluid. A total of 10,000 mL of dark yellow fluid was removed. The patient tolerated the procedure well left the department in satisfactory condition. IMPRESSION: Successful ultrasound-guided paracentesis COMMENT: Patient medication list reviewed: Yes- Quality ID# [id number]:Eligible professional attests to doc umenting in the medical record they obtained, updated, or reviewed the patient's current medications. TECHNICAL DOCUMENTATION: JOB ID: [id number] [employer]- All Rights Reserved Reading location - IP/workstation name: [email or web address]
[2018-01-26] MEDS: DOCUSATE SODIUM 100 MG CAPSULE PO SCH ×3 (09:42→17:09)
[2018-01-26] MEDS: METOPROLOL TARTRATE 50 MG TABLET PO SCH ×2 (09:42→22:13)
[2018-01-26] MEDS: FUROSEMIDE 40 MG TABLET PO SCH ×3 (10:00→19:29)
[2018-01-26] MEDS ORDERED: FUROSEMIDE 40 MG TABLET PO SCH (10:00)
[2018-01-26] MEDS: ACETAMINOPHEN 325 MG TABLET PO PRN ×2 (16:11→22:13)
--- NOTE | 2018-01-26 16:53 | PDOC PROGRESS REPORT ---
Subjective Progress Note for:: 01/26/18 Reason For Visit: He had another large volume paracentesis yesterday of approximately 10 L. Obviously is feeling a whole lot better today. His breathing is better. He and his did take a walk around the floor and felt good. Appetite is good. No history of any chest pains or shortness of breath. No history of nausea vomiting. Labs and medications were reviewed with the patient and his at the bedside. Physical Exam Vital Signs: Temp Pulse Resp BP Pulse Ox 99.4 F 72 22 H 162/83 H 100 01/26/18 12:14 01/26/18 12:14 01/26/18 12:14 01/26/18 12:14 01/26/18 12:14 Intake & Output 01/25/18 01/26/18 01/27/18 06:59 06:59 06:59 Intake Total 1976 1114 222 Output Total 4500 2500 1000 Balance -9839 -4153 -725 Weight 128.9 kg 118.4 kg General appearance: PRESENT: no acute distress Respiratory exam: PRESENT: clear to auscultation darline. ABSENT: crackles Cardiovascular exam: PRESENT: +S1, +S2, systolic murmur GI/Abdominal exam: PRESENT: ascites, distended - Much less distended than when he came in., normal bowel sounds, soft. ABSENT: organomegaly, tenderness Extremities exam: PRESENT: pedal edema Neurological exam: PRESENT: alert, awake, oriented to person, oriented to place Results Laboratory Results: 01/26/18 05:01 01/26/18 05:01 01/26/18 01/26/18 05:01 05:01 WBC 5.1 RBC 3.27 L Hgb 9.0 L Hct 27.8 L MCV 85 MCH 27.7 MCHC 32.5 RDW 15.9 H Plt Count 157 Retic Count (auto) 1.75 Absolute Retic 0.057 Sodium 146.0 H Potassium 4.6 Chloride 106 Carbon Dioxide 29 Anion Gap 11 BUN 57 H Creatinine 2.63 H Est GFR ( Amer) 31 L Est GFR (Non-Af Amer) 25 L Glucose 116 H Calcium 8.0 L Iron 10.8 L TIBC 182 L % Saturation 6 Ferritin 92.00 Vitamin B12 489.0 Folate 4.41 01/22/18 16:05 Abdominal Fluid Gram Stain - Final 01/22/18 16:05 Abdominal Fluid Body Fluid Culture - Final NO AEROBIC OR ANAEROBIC ORGANISMS RECOVERED 01/23/18 01/24/18 01/25/18 04:27 04:20 05:46 NT-Pro-B Natriuret Pep 8330 H 7460 H 8200 H Impressions: Chest X-Ray 01/22/18 14:51 IMPRESSION: Moderate cardiomegaly. No acute infiltrates. Abdomen/Pelvis CT 01/22/18 14:52 IMPRESSION: Small liver. Massive ascites. Evaluation of bowel is limited because of the ascites. Abdomen Ultrasound 01/25/18 00:00 IMPRESSION: Limited study as noted above. Ascitic fluid is identified. No other significant intra-abdominal abnormalities were identified. Paracentesis Ultrasound 01/25/18 08:16 IMPRESSION: Successful ultrasound-guided paracentesis Assessment & Plan - Diagnosis (1) Chronic kidney disease (CKD), stage IV (severe) Plan: Nonoliguric. Stable renal numbers. Continue present lines of management. No indications for renal replacements. (2) Acute on chronic combined systolic (congestive) and diastolic (congestive) heart failure Is this a current diagnosis for this admission?: Yes Plan: Stable. Did review his echocardiogram that shows rather stable LV function. He has got moderate pulmonary hypertension. (3) Acute renal failure Qualifiers: Acute renal failure type: unspecified Qualified Code(s): N17.9 - Acute kidney failure, unspecified Is this a current diagnosis for this admission?: Yes Plan: Resolved and put patient back to baseline. (4) Ascites Qualifiers: Ascites type: other type Qualified Code(s): R18.8 - Other ascites Is this a current diagnosis for this admission?: Yes Plan: He is status post 2 large volume paracentesis of approximately 20 L and feels a whole lot better. At this point I would presume that he might benefit from a weekly paracentesis of the same times maybe 2 or 3. He obviously needs further workup of his hepatitis as obviously I do not think his heart is responsible in the form of congestive cardiomyopathy and congestive liver disease.Note gastroenterology is now involved. (5) Anemia Qualifiers: Anemia type: due to chronic kidney disease Is this a current diagnosis for this admission?: Yes Plan: Severe iron deficiency. Would benefit from IV iron infusions. Patient currently opted for p.o. iron. We will monitor.
--- NOTE | 2018-01-26 20:23 | PDOC PROGRESS REPORT ---
Subjective Progress Note for:: 01/26/18 Subjective:: Patient seems to be doing better with gradual improvement. Pt is denying any chest arm or neck discomfort. Patient denying any PND, orthopnea. Patient denied any sustained palpitations, dizziness, syncope, near syncope. Patient denying any fever chills. Patient denying any other significant discomfort. Still has significant abdominal distention and ascites. Patient is maintaining sinus rhythm. Review of systems: Rest review of systems negative. Medications: Medications have been reviewed. Reason For Visit: CHF/SOB Physical Exam Vital Signs: Temp Pulse Resp BP Pulse Ox 99.4 F 72 22 H 162/83 H 100 01/26/18 12:14 01/26/18 14:00 01/26/18 12:14 01/26/18 12:14 01/26/18 12:14 Intake & Output 01/25/18 01/26/18 01/27/18 06:59 06:59 06:59 Intake Total 1976 1114 681 Output Total 4500 2500 1300 Balance -2524 -1386 -619 Weight 128.9 kg 118.4 kg Exam: GENERAL: well-nourished and in no acute distress. Alert and oriented x3 HEAD: Atraumatic, normocephalic. EYES: Pupils equal round and reactive to light, extraocular movements intact, sclera anicteric, conjunctiva are normal. ENT: TMs normal, nares patent, oropharynx clear without exudates. Moist mucous membranes. No oral ulcerations or bleeding gums noted NECK: supple without lymphadenopathy. Trachea is central. No cervical or axillary lymphadenopathy noted. Carotids are 2+, JVD 10-12 cm LUNGS: Respiration seems nonlabored, no significant accessory muscle action noted. Breath sounds clear to auscultation bilaterally and equal noted. No wheezes rales or rhonchi noted. No significant dullness noted on percussion. CHEST: Palpation of the chest wall shows no significant chest wall tenderness. 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 ABDOMEN: Soft, large ascites noted, normoactive bowel sounds. No guarding, no rebound. No rigidity noted . No masses appreciated. EXTREMITIES: Pedal pulses are 1-2+, no calf tenderness noted. No clubbing or cyanosis. 1+ pedal edema noted NEUROLOGICAL: Focused neurological exam showed no significant neurologic deficit. Normal speech, no focal weakness appreciated. PSYCH: Normal mood, normal affect. Judgment and insight within normal limits. SKIN: No significant ecchymosis, skin is noted to be warm. MUSCULOSKELETAL EXAM: No significant acute joint swelling noted. Results Laboratory Results: 01/26/18 05:01 01/26/18 05:01 01/26/18 01/26/18 05:01 05:01 WBC 5.1 RBC 3.27 L Hgb 9.0 L Hct 27.8 L MCV 85 MCH 27.7 MCHC 32.5 RDW 15.9 H Plt Count 157 Retic Count (auto) 1.75 Absolute Retic 0.057 Sodium 146.0 H Potassium 4.6 Chloride 106 Carbon Dioxide 29 Anion Gap 11 BUN 57 H Creatinine 2.63 H Est GFR ( Amer) 31 L Est GFR (Non-Af Amer) 25 L Glucose 116 H Calcium 8.0 L Iron 10.8 L TIBC 182 L % Saturation 6 Ferritin 92.00 Vitamin B12 489.0 Folate 4.41 01/22/18 16:05 Abdominal Fluid Gram Stain - Final 01/22/18 16:05 Abdominal Fluid Body Fluid Culture - Final NO AEROBIC OR ANAEROBIC ORGANISMS RECOVERED 01/23/18 01/24/18 01/25/18 04:27 04:20 05:46 NT-Pro-B Natriuret Pep 8330 H 7460 H 8200 H EKG Comments: Shows sinus rhythm Impressions: Chest X-Ray 01/22/18 14:51 IMPRESSION: Moderate cardiomegaly. No acute infiltrates. Abdomen/Pelvis CT 01/22/18 14:52 IMPRESSION: Small liver. Massive ascites. Evaluation of bowel is limited because of the ascites. Abdomen Ultrasound 01/25/18 00:00 IMPRESSION: Limited study as noted above. Ascitic fluid is identified. No other significant intra-abdominal abnormalities were identified. Paracentesis Ultrasound 01/25/18 08:16 IMPRESSION: Successful ultrasound-guided paracentesis Assessment & Plan - Diagnosis (1) Ascites Qualifiers: Ascites type: other type Qualified Code(s): R18.8 - Other ascites Is this a current diagnosis for this admission?: Yes (2) Chronic kidney disease Qualifiers: Chronic kidney disease stage: stage 4 (severe) Qualified Code(s): N18.4 - Chronic kidney disease, stage 4 (severe) Is this a current diagnosis for this admission?: Yes (3) Congestive heart failure Qualifiers: Heart failure type: combined systolic and diastolic Heart failure chronicity: chronic Qualified Code(s): I50.42 - Chronic combined systolic ( congestive) and diastolic (congestive) heart failure Is this a current diagnosis for this admission?: Yes (4) Hypertension Qualifiers: Hypertension type: essential hypertension Qualified Code(s): I10 - Essential (primary) hypertension Is this a current diagnosis for this admission?: Yes (5) Noncompliance Is this a current diagnosis for this admission?: Yes - Notes Notes: Exam suggest elevated JVP therefore patient does have some element of right heart failure. Recommend continuing diuretic therapy. Recommend follow GI and nephrology recommendations. Ascites: Patient has rather a large and significant ascites. Agree with intermittent paracentesis. 2D echo results reviewed with the patient. CHF: JVP is noted to be elevated. Patient showing predominantly right-sided CHF findings. Continue diuretic therapy. Hypertension: Currently blood pressure under reasonable control. Noncompliance: Patient has been noncompliant with medication diet and treatment of sleep apnea. Patient will benefit from further evaluation and management of sleep apnea. Sleep apnea syndrome: Patient claims a previous diagnosis of sleep apnea but never really got on CPAP therapy. This may need to be evaluated further as an outpatient. Treatment of sleep apnea will often help right heart failure. Obesity: Discussed that obesity and hepatic steatosis is now a cause of cirrhosis of liver. Patient will benefit from gradual weight loss but this can be carried out as an outpatient. Ascites could account for his recent weight gain could be related to ascites. - Time Time with patient: Greater than 35 minutes - More than 50% of the time spent coordinating care, discussing management plans with involved caregivers. Management plans discussed with involved personnels. Medical decision making was of moderate to high complexity, patient's has multiple comorbidities. 2D echo results and management plans reviewed with patient and multiple family members. Medications reviewed and adjusted accordingly: Yes
[2018-01-27 06:10] LABS: ANION GAP 10 (5-19); BLOOD UREA NITROGEN 58 mg/dL (7-20); CARBON DIOXIDE 28 mmol/L (22-30); CHLORIDE 106 mmol/L (98-107); GLUCOSE 135 mg/dL (75-110); POTASSIUM 4.8 mmol/L (3.6-5.0); SODIUM 143.7 mmol/L (137-145)
[2018-01-27] MEDS: LANSOPRAZOLE 15 MG TAB.RAP.DR PO SCH ×2 (06:18→17:17)
[2018-01-27] MEDS: HEPARIN SOD (PORCINE) 5,000 UNIT/ML 1 ML SYRINGE SUBCUT SCH ×3 (06:20→22:12)
[2018-01-27 08:42] LABS: ABSOLUTE BASOPHILS # (AUTO) 0.1 10^3/uL (0.0-0.2); ABSOLUTE LYMPHOCYTES (AUTO) 0.6 10^3/uL (0.5-4.7); ABSOLUTE MONOCYTES (AUTO) 1.1 10^3/uL (0.1-1.4); ABSOLUTE NEUT (AUTO) 6.4 10^3/uL (1.7-8.2); BASOPHILS % (AUTO) 0.7 % (0-2); EOSINOPHILS % (AUTO) 0.4 % (0-6); HEMATOCRIT 29.7 % (37.9-51.0); HEMOGLOBIN 9.7 g/dL (13.5-17.0); LYMPHOCYTES % (AUTO) 7.5 % (13-45); MEAN CORPUSCULAR HEMOGLOBIN 27.6 pg (27.0-33.4); MEAN CORPUSCULAR HGB CONC 32.8 g/dL (32.0-36.0); MEAN CORPUSCULAR VOLUME 84 fl (80-97); MONOCYTES % (AUTO) 13.4 % (3-13); PLATELET COUNT 151 10^3/uL (150-450); RED BLOOD COUNT 3.53 10^6/uL (4.35-5.55); RED CELL DISTRIBUTION WIDTH 15.7 % (11.5-14.0); TOTAL CELLS COUNTED % (AUTO) 100 %; WHITE BLOOD COUNT 8.2 10^3/uL (4.0-10.5)
[2018-01-27 08:48] LABS: HEPATITIS A AB IGM Negative (Negative); HEPATITIS B CORE AB IGM Negative (Negative); HEPATITS B SURFACE ANTIGEN Negative (Negative)
[2018-01-27] MEDS: CALCIUM ACETATE 667 MG CAPSULE PO SCH ×3 (09:11→17:16)
[2018-01-27] MEDS: FUROSEMIDE 40 MG TABLET PO SCH ×2 (09:37→17:17)
[2018-01-27] MEDS: METOPROLOL TARTRATE 50 MG TABLET PO SCH ×2 (09:38→22:09)
[2018-01-27] MEDS: DOCUSATE SODIUM 100 MG CAPSULE PO SCH ×2 (09:40→17:16)
[2018-01-27 10:14] LABS: HEPATITIS C VIRUS ANTIBODY <0.1 s/co ratio (0.0-0.9)
[2018-01-27] MEDS: CIPROFLOXACIN HCL 500 MG TABLET PO SCH ×2 (13:45→22:09)
--- NOTE | 2018-01-27 15:04 | PDOC PROGRESS REPORT ---
Subjective Progress Note for:: 01/27/18 Reason For Visit: Patient seen today. He is doing better. He denies any history of chest pain or shortness of breath. Appetite is much improved. Bowels are moving well. No active nausea vomiting. Labs and medications were reviewed with the patient. He is a bit more mobile than otherwise. Physical Exam Vital Signs: Temp Pulse Resp BP Pulse Ox 98.6 F 73 19 129/64 H 98 01/27/18 11:30 01/27/18 11:30 01/27/18 11:30 01/27/18 11:30 01/27/18 11:30 Intake & Output 01/26/18 01/27/18 01/28/18 06:59 06:59 06:59 Intake Total 1114 1382 356 Output Total 3699 1590 600 Balance -0746 -5481 -602 Weight 118.4 kg 115.3 kg General appearance: PRESENT: no acute distress Respiratory exam: PRESENT: clear to auscultation darline. ABSENT: crackles, rhonchi Cardiovascular exam: PRESENT: +S1, +S2, systolic murmur GI/Abdominal exam: PRESENT: ascites, distended - Much less distended than when he came in., normal bowel sounds, soft. ABSENT: organomegaly, tenderness Extremities exam: PRESENT: pedal edema Neurological exam: PRESENT: alert, awake, oriented to person, oriented to place Results Laboratory Results: 01/27/18 04:45 01/27/18 04:45 01/27/18 01/27/18 04:45 04:45 WBC 8.2 RBC 3.53 L Hgb 9.7 L Hct 29.7 L MCV 84 MCH 27.6 MCHC 32.8 RDW 15.7 H Plt Count 151 Seg Neutrophils % 78.0 Lymphocytes % 7.5 L Monocytes % 13.4 H Eosinophils % 0.4 Basophils % 0.7 Absolute Neutrophils 6.4 Absolute Lymphocytes 0.6 Absolute Monocytes 1.1 Absolute Eosinophils 0.0 Absolute Basophils 0.1 Sodium 143.7 Potassium 4.8 Chloride 106 Carbon Dioxide 28 Anion Gap 10 BUN 58 H Creatinine 2.88 H Est GFR ( Amer) 28 L Est GFR (Non-Af Amer) 23 L Glucose 135 H Calcium 8.0 L 01/22/18 16:05 Abdominal Fluid Gram Stain - Final 01/22/18 16:05 Abdominal Fluid Body Fluid Culture - Final NO AEROBIC OR ANAEROBIC ORGANISMS RECOVERED 01/23/18 01/24/18 01/25/18 04:27 04:20 05:46 NT-Pro-B Natriuret Pep 8330 H 7460 H 8200 H Impressions: Chest X-Ray 01/22/18 14:51 IMPRESSION: Moderate cardiomegaly. No acute infiltrates. Abdomen/Pelvis CT 01/22/18 14:52 IMPRESSION: Small liver. Massive ascites. Evaluation of bowel is limited because of the ascites. Abdomen Ultrasound 01/25/18 00:00 IMPRESSION: Limited study as noted above. Ascitic fluid is identified. No other significant intra-abdominal abnormalities were identified. Paracentesis Ultrasound 01/25/18 08:16 IMPRESSION: Successful ultrasound-guided paracentesis Assessment & Plan - Diagnosis (1) Acute renal failure Qualifiers: Acute renal failure type: unspecified Qualified Code(s): N17.9 - Acute kidney failure, unspecified Is this a current diagnosis for this admission?: Yes Plan: Resolved and put patient back to baseline.From my point of view he can be discharged and I will be glad to follow him up in my office in about 10-14 days with labs. (2) Chronic kidney disease (CKD), stage IV (severe) Plan: Nonoliguric. Stable renal numbers. Continue present lines of management. No indications for renal replacements. (3) Acute on chronic combined systolic (congestive) and diastolic (congestive) heart failure Is this a current diagnosis for this admission?: Yes Plan: Stable. Did review his echocardiogram that shows rather stable LV function. He has got moderate pulmonary hypertension. (4) Ascites Qualifiers: Ascites type: other type Qualified Code(s): R18.8 - Other ascites Is this a current diagnosis for this admission?: Yes Plan: Status post 2 large volume paracentesis for approximately 20 L patient feeling a whole lot better. GI involved for further evaluations.. (5) Anemia Qualifiers: Anemia type: due to chronic kidney disease Is this a current diagnosis for this admission?: Yes Plan: Severe iron deficiency. Would benefit from IV iron infusions. Patient currently opted for p.o. iron. We will monitor.
[2018-01-27 15:39] LABS: ALPHA-2-GLOBULIN 2 0.6 g/dL (0.4-1.0); BETA GLOBULINS 0.9 g/dL (0.7-1.3); GAMMA GLOBULIN 1.3 g/dL (0.4-1.8); MONOCLONAL SPIKE Not Observed g/dL (Not Observ)
--- NOTE | 2018-01-27 16:44 | PDOC PROGRESS REPORT ---
Subjective Progress Note for:: 01/27/18 Subjective:: Patient is feeling much better Patient's denied any chest pain denied any shortness of the breath Patient overnight some low-grade fever Reason For Visit: CHF/SOB Physical Exam Vital Signs: Temp Pulse Resp BP Pulse Ox 98.7 F 69 17 141/71 H 100 01/27/18 15:24 01/27/18 15:24 01/27/18 15:24 01/27/18 15:24 01/27/18 15:24 Intake & Output 01/26/18 01/27/18 01/28/18 06:59 06:59 06:59 Intake Total 1114 1382 356 Output Total 2500 4540 600 Balance -1386 -1278 -244 Weight 118.4 kg 115.3 kg General appearance: PRESENT: no acute distress, well-developed, well-nourished Head exam: PRESENT: atraumatic, normocephalic Eye exam: PRESENT: conjunctiva pink, EOMI, PERRLA. ABSENT: scleral icterus Ear exam: PRESENT: normal external ear exam Mouth exam: PRESENT: moist, tongue midline Neck exam: PRESENT: full ROM. ABSENT: carotid bruit, JVD, lymphadenopathy, thyromegaly Respiratory exam: PRESENT: clear to auscultation darline Cardiovascular exam: PRESENT: RRR. ABSENT: diastolic murmur, rubs, systolic murmur Pulses: PRESENT: normal dorsalis pedis pul, +2 pedal pulses bilateral Vascular exam: PRESENT: normal capillary refill GI/Abdominal exam: PRESENT: ascites, normal bowel sounds, soft. ABSENT: distended, guarding, mass, organolmegaly, rebound, tenderness Rectal exam: PRESENT: deferred Neurological exam: PRESENT: alert, awake, oriented to person, oriented to place , oriented to time, oriented to situation, CN II-XII grossly intact. ABSENT: motor sensory deficit Psychiatric exam: PRESENT: appropriate affect, normal mood. ABSENT: homicidal ideation, suicidal ideation Skin exam: PRESENT: dry, intact, warm. ABSENT: cyanosis, rash Results Laboratory Results: 01/27/18 04:45 01/27/18 04:45 01/27/18 01/27/18 04:45 04:45 WBC 8.2 RBC 3.53 L Hgb 9.7 L Hct 29.7 L MCV 84 MCH 27.6 MCHC 32.8 RDW 15.7 H Plt Count 151 Seg Neutrophils % 78.0 Lymphocytes % 7.5 L Monocytes % 13.4 H Eosinophils % 0.4 Basophils % 0.7 Absolute Neutrophils 6.4 Absolute Lymphocytes 0.6 Absolute Monocytes 1.1 Absolute Eosinophils 0.0 Absolute Basophils 0.1 Sodium 143.7 Potassium 4.8 Chloride 106 Carbon Dioxide 28 Anion Gap 10 BUN 58 H Creatinine 2.88 H Est GFR ( Amer) 28 L Est GFR (Non-Af Amer) 23 L Glucose 135 H Calcium 8.0 L 01/23/18 01/24/18 01/25/18 04:27 04:20 05:46 NT-Pro-B Natriuret Pep 8330 H 7460 H 8200 H Impressions: Chest X-Ray 01/22/18 14:51 IMPRESSION: Moderate cardiomegaly. No acute infiltrates. Abdomen/Pelvis CT 01/22/18 14:52 IMPRESSION: Small liver. Massive ascites. Evaluation of bowel is limited because of the ascites. Abdomen Ultrasound 01/25/18 00:00 IMPRESSION: Limited study as noted above. Ascitic fluid is identified. No other significant intra-abdominal abnormalities were identified. Paracentesis Ultrasound 01/25/18 08:16 IMPRESSION: Successful ultrasound-guided paracentesis Assessment & Plan - Diagnosis (1) Ascites Qualifiers: Ascites type: other type Qualified Code(s): R18.8 - Other ascites Is this a current diagnosis for this admission?: Yes Plan: With unclear etiology most likely cirrhosis of the liver possible from cardiac but the echocardiogram looks stable per the cardiology follow-up outpatients continues to Lasix (2) Congestive heart failure Qualifiers: Heart failure type: combined systolic and diastolic Heart failure chronicity: chronic Qualified Code(s): I50.42 - Chronic combined systolic ( congestive) and diastolic (congestive) heart failure Is this a current diagnosis for this admission?: Yes Plan: Currently all stable (3) Acute renal failure Qualifiers: Acute renal failure type: unspecified Qualified Code(s): N17.9 - Acute kidney failure, unspecified Is this a current diagnosis for this admission?: Yes Plan: Currently follow with the nephrology all stable (4) Chronic kidney disease Qualifiers: Chronic kidney disease stage: stage 4 (severe) Qualified Code(s): N18.4 - Chronic kidney disease, stage 4 (severe) Is this a current diagnosis for this admission?: Yes Plan: Follow with Dr. Wright (5) Hypertension Qualifiers: Hypertension type: essential hypertension Qualified Code(s): I10 - Essential (primary) hypertension Is this a current diagnosis for this admission?: Yes Plan: Continues the current medication (6) Protein calorie malnutrition Qualifiers: Protein-calorie malnutrition severity: moderate Qualified Code(s): E44.0 - Moderate protein-calorie malnutrition Is this a current diagnosis for this admission?: Yes Plan: Recheck the prealbumin and albumin replaced albumin (7) Noncompliance Is this a current diagnosis for this admission?: Yes - Time Time Spent with patient: 15-24 minutes Medications reviewed and adjusted accordingly: Yes Anticipated discharge: Home Within: within 24 hours - Inpatient Certification Medical Necessity: Need Close Monitoring Due to Risk of Patient Decompensation Post Hospital Care: D/C Lpn Documentation - Plan Summary Plan Summary: Patient had a low-grade fever not sure Only 1 in patients feel much better will get the blood culture urine culture and assess weight for 24 hoursBefore discharge
[2018-01-27] MEDS: TORSEMIDE 20 MG TABLET PO SCH (17:15)
[2018-01-27] MEDS: ACETAMINOPHEN 325 MG TABLET PO PRN (17:30)
[2018-01-27] MEDS: PHARMACY COMMUNICATION ORDER MC SCH (18:02)
--- NOTE | 2018-01-27 19:48 | PDOC PROGRESS REPORT ---
Subjective Progress Note for:: 01/27/18 Subjective:: Overall he is doing better. His mood is better and he has been more ambulatory. He denies abdominal pain, nausea, or vomiting. He does complain of some pain in the left leg that started soon after his last paracenteses. The pain is worse with ambulation. The paracentesis was performed on the right side of his abdomen. He has a wound on the left leg Evaluation in the last few days showed negative hepatitis serology with pending autoimmune serology. His creatinine remained at 2.8 but his sodium is down to 143 his hemoglobin is 7. His hemoglobin is 9.7. He had an echocardiogram on 01/25/2018 that showed a normal left ventricular ejection fraction but mild to moderately dilated right ventricle. There is mild to moderate pulmonary hypertension by echo. He continues to be evaluated by Dr. Wright Reason For Visit: CHF/SOB Physical Exam Vital Signs: Temp Pulse Resp BP Pulse Ox 98.7 F 69 17 141/71 H 100 01/27/18 15:24 01/27/18 15:24 01/27/18 15:24 01/27/18 15:24 01/27/18 15:24 Intake & Output 01/26/18 01/27/18 01/28/18 06:59 06:59 06:59 Intake Total 1114 1382 711 Output Total 2500 2660 600 Balance -1386 -1278 111 Weight 118.4 kg 115.3 kg Results Laboratory Results: 01/27/18 04:45 01/27/18 04:45 01/27/18 01/27/18 04:45 04:45 WBC 8.2 RBC 3.53 L Hgb 9.7 L Hct 29.7 L MCV 84 MCH 27.6 MCHC 32.8 RDW 15.7 H Plt Count 151 Seg Neutrophils % 78.0 Lymphocytes % 7.5 L Monocytes % 13.4 H Eosinophils % 0.4 Basophils % 0.7 Absolute Neutrophils 6.4 Absolute Lymphocytes 0.6 Absolute Monocytes 1.1 Absolute Eosinophils 0.0 Absolute Basophils 0.1 Sodium 143.7 Potassium 4.8 Chloride 106 Carbon Dioxide 28 Anion Gap 10 BUN 58 H Creatinine 2.88 H Est GFR ( Amer) 28 L Est GFR (Non-Af Amer) 23 L Glucose 135 H Calcium 8.0 L 01/23/18 01/24/18 01/25/18 04:27 04:20 05:46 NT-Pro-B Natriuret Pep 8330 H 7460 H 8200 H Impressions: Chest X-Ray 01/22/18 14:51 IMPRESSION: Moderate cardiomegaly. No acute infiltrates. Abdomen/Pelvis CT 01/22/18 14:52 IMPRESSION: Small liver. Massive ascites. Evaluation of bowel is limited because of the ascites. Abdomen Ultrasound 01/25/18 00:00 IMPRESSION: Limited study as noted above. Ascitic fluid is identified. No other significant intra-abdominal abnormalities were identified. Paracentesis Ultrasound 01/25/18 08:16 IMPRESSION: Successful ultrasound-guided paracentesis Assessment & Plan - Diagnosis (1) Ascites Qualifiers: Ascites type: other type Qualified Code(s): R18.8 - Other ascites Is this a current diagnosis for this admission?: Yes Plan: His ascites is most likely from his liver disease rather than CHF. He had 20 L of fluid removed during this admission. He is currently on Lasix and I again emphasized low-salt diet. He will likely need more paracenteses over time with adjustments of his diuretics. I will try him on Midodrin to help with his renal perfusion. He will follow-up with Dr. Wright (2) Cirrhosis Qualifiers: Ascites presence: with ascites Is this a current diagnosis for this admission?: Yes Plan: The etiology for his cirrhosis is unclear. I will await autoimmune serology as outpatient. This may be from fatty liver disease (3) Chronic kidney disease Qualifiers: Chronic kidney disease stage: stage 4 (severe) Qualified Code(s): N18.4 - Chronic kidney disease, stage 4 (severe) Is this a current diagnosis for this admission?: Yes (4) Congestive heart failure Qualifiers: Heart failure type: combined systolic and diastolic Heart failure chronicity: chronic Qualified Code(s): I50.42 - Chronic combined systolic ( congestive) and diastolic (congestive) heart failure Is this a current diagnosis for this admission?: Yes Plan: He has fairly good systolic function by echo but the pharmacy tech still thinks he has mild right heart failure (5) Anemia Qualifiers: Anemia type: due to chronic kidney disease Is this a current diagnosis for this admission?: Yes
--- NOTE | 2018-01-27 19:53 | PDOC PROGRESS REPORT ---
Subjective Progress Note for:: 01/27/18 Subjective:: Patient seems to be doing better with gradual improvement. Pt is denying any chest arm or neck discomfort. Patient denying any PND, orthopnea. Patient denied any sustained palpitations, dizziness, syncope, near syncope. Patient denying any fever chills. Patient denying any other significant discomfort. There is much improvement in abdominal distention and ascites. Patient getting intermittent paracentesis. Patient is maintaining sinus rhythm. Review of systems: Rest review of systems negative. Medications: Medications have been reviewed. Reason For Visit: CHF/SOB Physical Exam Vital Signs: Temp Pulse Resp BP Pulse Ox 98.7 F 69 17 141/71 H 100 01/27/18 15:24 01/27/18 15:24 01/27/18 15:24 01/27/18 15:24 01/27/18 15:24 Intake & Output 01/26/18 01/27/18 01/28/18 06:59 06:59 06:59 Intake Total 1114 1382 711 Output Total 2500 2660 600 Balance -1386 -1278 111 Weight 118.4 kg 115.3 kg Exam: GENERAL: well-nourished and in no acute distress. Alert and oriented x3 HEAD: Atraumatic, normocephalic. EYES: Pupils equal round and reactive to light, extraocular movements intact, sclera anicteric, conjunctiva are normal. ENT: TMs normal, nares patent, oropharynx clear without exudates. Moist mucous membranes. No oral ulcerations or bleeding gums noted NECK: supple without lymphadenopathy. Trachea is central. No cervical or axillary lymphadenopathy noted. Carotids are 2+, JVD 10-12 cm LUNGS: Respiration seems nonlabored, no significant accessory muscle action noted. Breath sounds clear to auscultation bilaterally and equal noted. No wheezes rales or rhonchi noted. No significant dullness noted on percussion. CHEST: Palpation of the chest wall shows no significant chest wall tenderness. HEART: [employer], No PSH, 1/6 DEL aortic area, 1/6 chahal systolic murmur mitral area, no rubs, no gallops. ABDOMEN: Soft, moderate distention with ascites noted, normoactive bowel sounds. No guarding, no rebound. No rigidity noted . No masses appreciated. EXTREMITIES: Pedal pulses are 1-2+, no calf tenderness noted. No clubbing or cyanosis. 1+ pedal edema noted NEUROLOGICAL: Focused neurological exam showed no significant neurologic deficit. Normal speech, no focal weakness appreciated. PSYCH: Normal mood, normal affect. Judgment and insight within normal limits. SKIN: No significant ecchymosis, skin is noted to be warm. MUSCULOSKELETAL EXAM: No significant acute joint swelling noted. Results Laboratory Results: 01/27/18 04:45 01/27/18 04:45 01/27/18 01/27/18 04:45 04:45 WBC 8.2 RBC 3.53 L Hgb 9.7 L Hct 29.7 L MCV 84 MCH 27.6 MCHC 32.8 RDW 15.7 H Plt Count 151 Seg Neutrophils % 78.0 Lymphocytes % 7.5 L Monocytes % 13.4 H Eosinophils % 0.4 Basophils % 0.7 Absolute Neutrophils 6.4 Absolute Lymphocytes 0.6 Absolute Monocytes 1.1 Absolute Eosinophils 0.0 Absolute Basophils 0.1 Sodium 143.7 Potassium 4.8 Chloride 106 Carbon Dioxide 28 Anion Gap 10 BUN 58 H Creatinine 2.88 H Est GFR ( Amer) 28 L Est GFR (Non-Af Amer) 23 L Glucose 135 H Calcium 8.0 L 01/23/18 01/24/18 01/25/18 04:27 04:20 05:46 NT-Pro-B Natriuret Pep 8330 H 7460 H 8200 H Impressions: Chest X-Ray 01/22/18 14:51 IMPRESSION: Moderate cardiomegaly. No acute infiltrates. Abdomen/Pelvis CT 01/22/18 14:52 IMPRESSION: Small liver. Massive ascites. Evaluation of bowel is limited because of the ascites. Abdomen Ultrasound 01/25/18 00:00 IMPRESSION: Limited study as noted above. Ascitic fluid is identified. No other significant intra-abdominal abnormalities were identified. Paracentesis Ultrasound 01/25/18 08:16 IMPRESSION: Successful ultrasound-guided paracentesis Assessment & Plan - Diagnosis (1) Ascites Qualifiers: Ascites type: other type Qualified Code(s): R18.8 - Other ascites Is this a current diagnosis for this admission?: Yes (2) Chronic kidney disease Qualifiers: Chronic kidney disease stage: stage 4 (severe) Qualified Code(s): N18.4 - Chronic kidney disease, stage 4 (severe) Is this a current diagnosis for this admission?: Yes (3) Congestive heart failure Qualifiers: Heart failure type: combined systolic and diastolic Heart failure chronicity: chronic Qualified Code(s): I50.42 - Chronic combined systolic ( congestive) and diastolic (congestive) heart failure Is this a current diagnosis for this admission?: Yes (4) Hypertension Qualifiers: Hypertension type: essential hypertension Qualified Code(s): I10 - Essential (primary) hypertension Is this a current diagnosis for this admission?: Yes (5) Noncompliance Is this a current diagnosis for this admission?: Yes - Notes Notes: Ascites: Most likely related to combination of right-sided CHF and hepatic cirrhosis. Liver was noted to be a small on CT scan. Agree with recurrent paracentesis. Chronic kidney disease: Patient being well managed by Dr. Wright of nephrology. CHF: Have placed patient on Demadex 20 mg p.o. twice daily. Demadex is better this absorbed and may work better in chronic renal failure. Hypertension: Currently blood pressure is well controlled. Patient advised in salt and fluid restriction. As noted above previously patient will benefit from completing a sleep study and CPAP therapy as an outpatient soon after discharge. - Time Time with patient: Greater than 35 minutes - CODE STATUS was discussed, patient remains full code. Surrogate decision-maker unchanged. Multiple medical problems were addressed. More than 50% of the time spent coordinating care, discussing management plans with involved caregivers. Management plans discussed with involved personnels. Medical decision making was of moderate to high complexity, patient's has multiple comorbidities. Medications reviewed and adjusted accordingly: Yes
[2018-01-28] MEDS: LANSOPRAZOLE 15 MG TAB.RAP.DR PO SCH ×2 (05:25→18:20)
[2018-01-28] MEDS: HEPARIN SOD (PORCINE) 5,000 UNIT/ML 1 ML SYRINGE SUBCUT SCH ×3 (05:25→22:03)
[2018-01-28 07:11] LABS: ACTIN (SMOOTH MUSCLE) ANTIBODY 16 Units (0-19); MITOCHONDRIAL (M2) ANTIBODY 5.4 Units (0.0-20.0)
--- NOTE | 2018-01-28 08:48 | PDOC PROGRESS REPORT ---
Subjective Progress Note for:: 01/28/18 Subjective:: Patient is currently doing fair Patient is complaining of left leg pain especially patients walkAlso complaining of the left knee area Patient also has a right leg wound Patient still running some low-grade fever last night Denied any abdominal pain denied any chest pain denied any cough Reason For Visit: CHF/SOB Physical Exam Vital Signs: Temp Pulse Resp BP Pulse Ox 99.8 F 78 20 143/65 H 99 01/28/18 03:16 01/28/18 07:00 01/28/18 03:16 01/28/18 03:16 01/28/18 03:16 Intake & Output 01/27/18 01/28/18 01/29/18 06:59 06:59 06:59 Intake Total 1382 951 Output Total 2660 1275 Balance -1278 -324 Weight 115.3 kg 112.1 kg General appearance: PRESENT: no acute distress, well-developed, well-nourished Head exam: PRESENT: atraumatic, normocephalic Eye exam: PRESENT: conjunctiva pink, EOMI, PERRLA. ABSENT: scleral icterus Ear exam: PRESENT: normal external ear exam Mouth exam: PRESENT: moist, tongue midline Neck exam: PRESENT: full ROM. ABSENT: carotid bruit, JVD, lymphadenopathy, thyromegaly Respiratory exam: PRESENT: clear to auscultation darline Cardiovascular exam: PRESENT: RRR. ABSENT: diastolic murmur, rubs, systolic murmur Pulses: PRESENT: normal dorsalis pedis pul, +2 pedal pulses bilateral Vascular exam: PRESENT: normal capillary refill GI/Abdominal exam: PRESENT: normal bowel sounds, soft. ABSENT: distended, guarding, mass, organolmegaly, rebound, tenderness Rectal exam: PRESENT: deferred Extremities exam: ABSENT: pedal edema Additional comments: Right leg small wound is present Musculoskeletal exam: PRESENT: ambulatory Neurological exam: PRESENT: alert, awake, oriented to person, oriented to place , oriented to time, oriented to situation, CN II-XII grossly intact. ABSENT: motor sensory deficit Psychiatric exam: PRESENT: appropriate affect, normal mood. ABSENT: homicidal ideation, suicidal ideation Skin exam: PRESENT: dry, intact, warm. ABSENT: cyanosis, rash Results Laboratory Results: 01/27/18 04:45 01/27/18 04:45 01/26/18 05:01 Total Protein 6.0 Albumin 3.0 01/23/18 01/24/18 01/25/18 04:27 04:20 05:46 NT-Pro-B Natriuret Pep 8330 H 7460 H 8200 H Impressions: Chest X-Ray 01/22/18 14:51 IMPRESSION: Moderate cardiomegaly. No acute infiltrates. Abdomen/Pelvis CT 01/22/18 14:52 IMPRESSION: Small liver. Massive ascites. Evaluation of bowel is limited because of the ascites. Abdomen Ultrasound 01/25/18 00:00 IMPRESSION: Limited study as noted above. Ascitic fluid is identified. No other significant intra-abdominal abnormalities were identified. Paracentesis Ultrasound 01/25/18 08:16 IMPRESSION: Successful ultrasound-guided paracentesis Assessment & Plan - Diagnosis (1) Ascites Qualifiers: Ascites type: other type Qualified Code(s): R18.8 - Other ascites Is this a current diagnosis for this admission?: Yes Plan: With unclear etiology most likely cirrhosis of the liver possible from cardiac but the echocardiogram looks stable per the cardiology follow-up outpatients continues to [facility] (2) Congestive heart failure Qualifiers: Heart failure type: combined systolic and diastolic Heart failure chronicity: chronic Qualified Code(s): I50.42 - Chronic combined systolic ( congestive) and diastolic (congestive) heart failure Is this a current diagnosis for this admission?: Yes Plan: Currently all stable (3) Acute renal failure Qualifiers: Acute renal failure type: unspecified Qualified Code(s): N17.9 - Acute kidney failure, unspecified Is this a current diagnosis for this admission?: Yes Plan: Currently follow with the nephrology all stable (4) Chronic kidney disease Qualifiers: Chronic kidney disease stage: stage 4 (severe) Qualified Code(s): N18.4 - Chronic kidney disease, stage 4 (severe) Is this a current diagnosis for this admission?: Yes Plan: Follow with Dr. Wright (5) Hypertension Qualifiers: Hypertension type: essential hypertension Qualified Code(s): I10 - Essential (primary) hypertension Is this a current diagnosis for this admission?: Yes Plan: Continues the current medication (6) Protein calorie malnutrition Qualifiers: Protein-calorie malnutrition severity: moderate Qualified Code(s): E44.0 - Moderate protein-calorie malnutrition Is this a current diagnosis for this admission?: Yes (7) Noncompliance Is this a current diagnosis for this admission?: Yes (8) Low grade fever Is this a current diagnosis for this admission?: Yes Plan: Will await further culture no signs of SBP Continues cipro Will get the wound culture (9) Leg pain Qualifiers: Laterality: left Qualified Code(s): M79.605 - Pain in left leg Is this a current diagnosis for this admission?: Yes Plan: Will get the ultrasound for the lower extremity to rule out any DVT most likely a possible knee pain related to the possible underlying gout we will check the uric acid level - Time Time Spent with patient: 15-24 minutes Medications reviewed and adjusted accordingly: Yes Anticipated discharge: Home Within: Other - Inpatient Certification Medical Necessity: Need Close Monitoring Due to Risk of Patient Decompensation Post Hospital Care: D/C Manager Intensive Care Unit Documentation - Plan Summary Plan Summary: Discussed with the patient and the family and the bedside with because of the low-grade fever still pending culture and patient's complaint of leg pain unable to discharge today we will get further workup
[2018-01-28] MEDS: CIPROFLOXACIN HCL 500 MG TABLET PO SCH (09:01)
[2018-01-28] MEDS: CALCIUM ACETATE 667 MG CAPSULE PO SCH ×3 (09:01→18:21)
[2018-01-28] MEDS: TORSEMIDE 20 MG TABLET PO SCH ×2 (09:02→18:20)
[2018-01-28] MEDS: MIDODRINE HCL 5 MG TABLET PO SCH ×4 (09:02→18:27)
[2018-01-28] MEDS: METOPROLOL TARTRATE 50 MG TABLET PO SCH ×2 (09:02→22:03)
[2018-01-28] MEDS: DOCUSATE SODIUM 100 MG CAPSULE PO SCH ×2 (09:02→18:20)
[2018-01-28 09:12] LABS: ABSOLUTE LYMPHOCYTES (AUTO) 0.7 10^3/uL (0.5-4.7); ABSOLUTE MONOCYTES (AUTO) 1.2 10^3/uL (0.1-1.4); ABSOLUTE NEUT (AUTO) 6.3 10^3/uL (1.7-8.2); BASOPHILS % (AUTO) 0.3 % (0-2); EOSINOPHILS % (AUTO) 0.2 % (0-6); HEMATOCRIT 28.8 % (37.9-51.0); HEMOGLOBIN 9.4 g/dL (13.5-17.0); LYMPHOCYTES % (AUTO) 7.9 % (13-45); MEAN CORPUSCULAR HEMOGLOBIN 27.8 pg (27.0-33.4); MEAN CORPUSCULAR HGB CONC 32.8 g/dL (32.0-36.0); MEAN CORPUSCULAR VOLUME 85 fl (80-97); MONOCYTES % (AUTO) 14.2 % (3-13); PLATELET COUNT 159 10^3/uL (150-450); RED BLOOD COUNT 3.39 10^6/uL (4.35-5.55); RED CELL DISTRIBUTION WIDTH 15.3 % (11.5-14.0); SEGMENTED NEUTROPHILS % (AUTO) 77.4 % (42-78); TOTAL CELLS COUNTED % (AUTO) 100 %; WHITE BLOOD COUNT 8.2 10^3/uL (4.0-10.5)
[2018-01-28 09:35] LABS: ANION GAP 12 (5-19); BLOOD UREA NITROGEN 54 mg/dL (7-20); CARBON DIOXIDE 26 mmol/L (22-30); CHLORIDE 104 mmol/L (98-107); GLUCOSE 122 mg/dL (75-110); POTASSIUM 4.7 mmol/L (3.6-5.0); URIC ACID 10.4 mg/dL (3.5-8.5)
--- NOTE | 2018-01-28 10:08 | RADIOLOGY REPORT (SQ) ---
EXAM DESCRIPTION: FOOT LEFT COMPLETE COMPLETED DATE/TIME: 01/28/2018 9:45 am REASON FOR STUDY: pain COMPARISON: None. NUMBER OF VIEWS: Three views. TECHNIQUE: AP, lateral and oblique radiographic images acquired of the left foot. LIMITATIONS: None. FINDINGS: MINERALIZATION: Normal. BONES: No acute fracture or dislocation. No worrisome bone lesions. Small plantar and dorsal calcan eal spurs. JOINTS: Marginal erosions at the 1st metatarsophalangeal joint could be seen in gout. SOFT TISSUES: Diffuse forefoot soft tissue swelling. No soft tissue gas. Arterial vascular calcific ations. OTHER: No other significant finding. IMPRESSION: Marginal erosions at the 1st metatarsophalangeal joint worrisome for gout. Forefoot soft tissue swelling without acute fracture TECHNICAL DOCUMENTATION: JOB ID: [id number] [employer]- All Rights Reserved Reading location - IP/workstation name: [email or web address]
--- NOTE | 2018-01-28 10:51 | RADIOLOGY REPORT (SQ) ---
EXAM DESCRIPTION: KNEE LEFT 2 VIEWS COMPLETED DATE/TIME: 01/28/2018 9:45 am REASON FOR STUDY: knee pain COMPARISON: None. NUMBER OF VIEWS: Two views. TECHNIQUE: AP and lateral radiographic images acquired of the left knee. LIMITATIONS: None. FINDINGS: MINERALIZATION: Normal. BONES: No acute fracture or dislocation. No worrisome bone lesions. JOINT: Large suprapatellar knee joint effusion. This could indicate internal derangement. SOFT TISSUES: Mild subcutaneous edema over the soft tissues. Atherosclerotic arterial vascular calci fications are present. No radiopaque foreign body. OTHER: No other significant finding. IMPRESSION: Suprapatellar knee joint effusion could indicate internal derangement. Diffuse subcutaneous edema with diffuse arterial vascular calcifications. TECHNICAL DOCUMENTATION: JOB ID: [id number] [employer]- All Rights Reserved Reading location - IP/workstation name: [email or web address]
[2018-01-28] MEDS: CEFEPIME 1 GM/D5W RTU 1 GM/50 ML RTUPB IV SCH ×2 (12:58→22:03)
[2018-01-28] MEDS: ALLOPURINOL 100 MG TABLET PO SCH (14:33)
--- NOTE | 2018-01-28 14:40 | PDOC PROGRESS REPORT ---
Subjective Progress Note for:: 01/28/18 Subjective:: patient was laying comfortably in bed with no complaints. According Renetta,the nurse in charge of his care, he had a fever the past two days. She just cultured his wound. He denies fevers or chills. He also denies chest pain or SOB. Reason For Visit: CHF/SOB Physical Exam Vital Signs: Temp Pulse Resp BP Pulse Ox 99.1 F 69 18 155/75 H 99 01/28/18 11:22 01/28/18 11:22 01/28/18 11:22 01/28/18 11:22 01/28/18 11:22 Intake & Output 01/27/18 01/28/18 01/29/18 06:59 06:59 06:59 Intake Total 1382 951 355 Output Total 2660 1275 Balance -1278 -324 355 Weight 115.3 kg 112.1 kg General appearance: PRESENT: no acute distress, well-developed, well-nourished Mouth exam: PRESENT: moist, neck supple Neck exam: ABSENT: JVD Respiratory exam: PRESENT: clear to auscultation darline. ABSENT: accessory muscle use, crackles, rales, rhonchi, wheezes Cardiovascular exam: PRESENT: +S1, +S2, systolic murmur GI/Abdominal exam: PRESENT: ascites, distended - Much less distended than when he came in., normal bowel sounds, soft. ABSENT: organomegaly, tenderness Extremities exam: PRESENT: joint swelling, pedal edema - -trace+. ABSENT: calf tenderness, tenderness, +1 edema, +2 edema Musculoskeletal exam: ABSENT: normal inspection, tenderness Neurological exam: PRESENT: alert, awake, oriented to person, oriented to place , oriented to time, oriented to situation, CN II-XII grossly intact. ABSENT: motor sensory deficit Skin exam: PRESENT: dry, erythema, skin tears, warm. ABSENT: intact Results Laboratory Results: 01/28/18 08:55 01/28/18 08:55 01/26/18 01/28/18 01/28/18 05:01 08:55 08:55 WBC 8.2 RBC 3.39 L Hgb 9.4 L Hct 28.8 L MCV 85 MCH 27.8 MCHC 32.8 RDW 15.3 H Plt Count 159 Seg Neutrophils % 77.4 Lymphocytes % 7.9 L Monocytes % 14.2 H Eosinophils % 0.2 Basophils % 0.3 Absolute Neutrophils 6.3 Absolute Lymphocytes 0.7 Absolute Monocytes 1.2 Absolute Eosinophils 0.0 Absolute Basophils 0.0 Sodium 142.0 Potassium 4.7 Chloride 104 Carbon Dioxide 26 Anion Gap 12 BUN 54 H Creatinine 2.96 H Est GFR ( Amer) 27 L Est GFR (Non-Af Amer) 22 L Glucose 122 H Uric Acid 10.4 H Calcium 8.0 L Total Protein 6.0 Albumin 3.0 01/23/18 01/24/18 01/25/18 04:27 04:20 05:46 NT-Pro-B Natriuret Pep 8330 H 7460 H 8200 H Impressions: Chest X-Ray 01/22/18 14:51 IMPRESSION: Moderate cardiomegaly. No acute infiltrates. Abdomen/Pelvis CT 01/22/18 14:52 IMPRESSION: Small liver. Massive ascites. Evaluation of bowel is limited because of the ascites. Abdomen Ultrasound 01/25/18 00:00 IMPRESSION: Limited study as noted above. Ascitic fluid is identified. No other significant intra-abdominal abnormalities were identified. Paracentesis Ultrasound 01/25/18 08:16 IMPRESSION: Successful ultrasound-guided paracentesis Foot X-Ray 01/28/18 00:00 IMPRESSION: Marginal erosions at the 1st metatarsophalangeal joint worrisome for gout. Forefoot soft tissue swelling without acute fracture Knee X-Ray 01/28/18 00:00 IMPRESSION: Suprapatellar knee joint effusion could indicate internal derangement. Diffuse subcutaneous edema with diffuse arterial vascular calcifications. Assessment & Plan - Diagnosis (1) Acute on chronic combined systolic (congestive) and diastolic (congestive) heart failure Is this a current diagnosis for this admission?: Yes Plan: currently stable (2) Acute renal failure Qualifiers: Acute renal failure type: unspecified Qualified Code(s): N17.9 - Acute kidney failure, unspecified Is this a current diagnosis for this admission?: Yes Plan: At baseline. (3) Anemia Qualifiers: Anemia type: due to chronic kidney disease Is this a current diagnosis for this admission?: Yes Plan: currently trending up, advised that if it starts to come down then he may need IV iron. (4) Ascites Qualifiers: Ascites type: other type Qualified Code(s): R18.8 - Other ascites Is this a current diagnosis for this admission?: Yes Plan: currently stable (5) Chronic kidney disease (CKD), stage IV (severe) Plan: baseline is around 2.8 (6) Hypertension Qualifiers: Hypertension type: essential hypertension Qualified Code(s): I10 - Essential (primary) hypertension Is this a current diagnosis for this admission?: Yes
[2018-01-28] MEDS: ACETAMINOPHEN 325 MG TABLET PO PRN (22:03)
[2018-01-28] MEDS: COLCHICINE 0.6 MG TABLET PO SCH (22:03)
--- NOTE | 2018-01-28 22:23 | PDOC PROGRESS REPORT ---
Subjective Progress Note for:: 01/28/18 Subjective:: Patient is noted to have fever. Patient seems to be doing better with gradual improvement. Pt is denying any chest arm or neck discomfort. Patient denying any PND, orthopnea. Patient denied any sustained palpitations, dizziness, syncope, near syncope. Patient denying any fever chills. Patient denying any other significant discomfort. There is much improvement in abdominal distention and ascites. Patient is maintaining sinus rhythm. Review of systems: Rest review of systems negative. Medications: Medications have been reviewed. Reason For Visit: CHF/SOB Physical Exam Vital Signs: Temp Pulse Resp BP Pulse Ox 101.8 F H 83 17 145/64 H 95 01/28/18 19:28 01/28/18 19:28 01/28/18 19:28 01/28/18 19:28 01/28/18 19:28 Intake & Output 01/27/18 01/28/18 01/29/18 06:59 06:59 06:59 Intake Total 1382 951 405 Output Total 2660 1275 Balance -1278 -324 405 Weight 115.3 kg 112.1 kg Exam: GENERAL: well-nourished and in no acute distress. Alert and oriented x3 HEAD: Atraumatic, normocephalic. EYES: Pupils equal round and reactive to light, extraocular movements intact, sclera anicteric, conjunctiva are normal. ENT: TMs normal, nares patent, oropharynx clear without exudates. Moist mucous membranes. No oral ulcerations or bleeding gums noted NECK: supple without lymphadenopathy. Trachea is central. No cervical or axillary lymphadenopathy noted. Carotids are 2+, JVD 10-12 cm LUNGS: Respiration seems nonlabored, no significant accessory muscle action noted. Breath sounds clear to auscultation bilaterally and equal noted. No wheezes rales or rhonchi noted. No significant dullness noted on percussion. CHEST: Palpation of the chest wall shows no significant chest wall tenderness. 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 ABDOMEN: Soft, mild to moderate ascites noted, normoactive bowel sounds. No guarding, no rebound. No rigidity noted . No masses appreciated. EXTREMITIES: Pedal pulses are 1-2+, no calf tenderness noted. No clubbing or cyanosis. negative pedal edema noted NEUROLOGICAL: Focused neurological exam showed no significant neurologic deficit. Normal speech, no focal weakness appreciated. PSYCH: Normal mood, normal affect. Judgment and insight within normal limits. SKIN: No significant ecchymosis, skin is noted to be warm. MUSCULOSKELETAL EXAM: No significant acute joint swelling noted. Results Laboratory Results: 01/28/18 08:55 01/28/18 08:55 01/26/18 01/28/18 01/28/18 05:01 08:55 08:55 WBC 8.2 RBC 3.39 L Hgb 9.4 L Hct 28.8 L MCV 85 MCH 27.8 MCHC 32.8 RDW 15.3 H Plt Count 159 Seg Neutrophils % 77.4 Lymphocytes % 7.9 L Monocytes % 14.2 H Eosinophils % 0.2 Basophils % 0.3 Absolute Neutrophils 6.3 Absolute Lymphocytes 0.7 Absolute Monocytes 1.2 Absolute Eosinophils 0.0 Absolute Basophils 0.0 Sodium 142.0 Potassium 4.7 Chloride 104 Carbon Dioxide 26 Anion Gap 12 BUN 54 H Creatinine 2.96 H Est GFR ( Amer) 27 L Est GFR (Non-Af Amer) 22 L Glucose 122 H Uric Acid 10.4 H Calcium 8.0 L Total Protein 6.0 Albumin 3.0 01/27/18 09:00 Clean Catch Midstream Urine Culture - Final Mixed Urogenital Melissa 01/23/18 01/24/18 01/25/18 04:27 04:20 05:46 NT-Pro-B Natriuret Pep 8330 H 7460 H 8200 H EKG Comments: Telemetry shows sinus rhythm Impressions: Chest X-Ray 01/22/18 14:51 IMPRESSION: Moderate cardiomegaly. No acute infiltrates. Abdomen/Pelvis CT 01/22/18 14:52 IMPRESSION: Small liver. Massive ascites. Evaluation of bowel is limited because of the ascites. Abdomen Ultrasound 01/25/18 00:00 IMPRESSION: Limited study as noted above. Ascitic fluid is identified. No other significant intra-abdominal abnormalities were identified. Paracentesis Ultrasound 01/25/18 08:16 IMPRESSION: Successful ultrasound-guided paracentesis Foot X-Ray 01/28/18 00:00 IMPRESSION: Marginal erosions at the 1st metatarsophalangeal joint worrisome for gout. Forefoot soft tissue swelling without acute fracture Knee X-Ray 01/28/18 00:00 IMPRESSION: Suprapatellar knee joint effusion could indicate internal derangement. Diffuse subcutaneous edema with diffuse arterial vascular calcifications. Assessment & Plan - Diagnosis (1) Ascites Qualifiers: Ascites type: other type Qualified Code(s): R18.8 - Other ascites Is this a current diagnosis for this admission?: Yes (2) Chronic kidney disease Qualifiers: Chronic kidney disease stage: stage 4 (severe) Qualified Code(s): N18.4 - Chronic kidney disease, stage 4 (severe) Is this a current diagnosis for this admission?: Yes (3) Congestive heart failure Qualifiers: Heart failure type: combined systolic and diastolic Heart failure chronicity: chronic Qualified Code(s): I50.42 - Chronic combined systolic ( congestive) and diastolic (congestive) heart failure Is this a current diagnosis for this admission?: Yes (4) Hypertension Qualifiers: Hypertension type: essential hypertension Qualified Code(s): I10 - Essential (primary) hypertension Is this a current diagnosis for this admission?: Yes (5) Noncompliance Is this a current diagnosis for this admission?: Yes - Notes Notes: Continue current Rx. Monitor renal and hepatic function. Agree with repeat paracentesis this to rule out spontaneous bacterial peritonitis. Ascites: This has significantly improved following repeated paracentesis and diuretic therapy. Chronic kidney disease: Nephrology is following. Follow renal functions. CHF: JVP is noted to be elevated. Patient showing predominantly right-sided CHF findings. Continue diuretic therapy. Patient was placed on Demadex yesterday. Continue with it. Fever: Because not. Could be a spontaneous bacterial peritonitis, could be gout related. Agree with paracentesis to check and rule out peritoneal infection. Hypertension: Currently blood pressure under reasonable control. Noncompliance: Patient has been noncompliant with medication diet and treatment of sleep apnea. Patient will benefit from further evaluation and management of sleep apnea. Sleep apnea syndrome: Patient claims a previous diagnosis of sleep apnea but never really got on CPAP therapy. This may need to be evaluated further as an outpatient. Treatment of sleep apnea will often help right heart failure. Obesity: Discussed that obesity and hepatic steatosis is now a cause of cirrhosis of liver. Patient will benefit from gradual weight loss but this can be carried out as an outpatient. Ascites could account for his recent weight gain could be related to ascites. - Time Time with patient: 15-25 minutes - More than 50% of the time spent coordinating care, discussing management plans with involved caregivers. Management plans discussed with involved personnels. Medical decision making was of moderate to high complexity, patient's has multiple comorbidities. Medications reviewed and adjusted accordingly: Yes
--- NOTE | 2018-01-29 06:26 | PDOC CONSULTATION ---
Consultation Consult Date: 01/29/18 Consult reason:: Right knee pain History of Present Illness Admission Date/PCP: 01/22/18 15:02 LUKAS BRODY MD History of Present Illness: TONY WOODS is a 57 year old male Patient is a 57-year-old black male admitted for multiple medical issues who during his admission began to complain of right knee pain. Patient denies a history of gout. Patient states "there is nothing wrong with my knee" Past Medical History Cardiac Medical History: Reports: Congestive Heart Failure, Hyperlipidema, Hypertension Pulmonary Medical History: Reports: Sleep Apnea Renal/ Medical History: Reports: Chronic Kidney Disease GI Medical History: Reports: Gastroesophageal Reflux Disease Psychiatric Medical History: Denies: Depression Hematology: Reports: Anemia Social History Information Source: Patient, [facility] Records Lives with: Family Smoking Status: Never Smoker Frequency of Alcohol Use: None Hx Recreational Drug Use: No Drugs: None Hx Prescription Drug Abuse: No Family History Family History: Reviewed & Not Pertinent Parental Family History Reviewed: No Children Family History Reviewed: No Sibling(s) Family History Reviewed.: No Medication/Allergy Home Medications: Calcium Acetate [Phoslo 667 mg Capsule] 667 mg PO MEALS 01/22/18 Furosemide [Lasix 40 mg Tablet] 40 mg PO BID 01/22/18 Metoprolol Tartrate [Lopressor 50 mg Tablet] 50 mg PO Q12 01/22/18 Allergies/Adverse Reactions: No Known Allergies Allergy (Unverified 01/22/18 12:46) Review of Systems All systems: as per H Physical Exam Vital Signs: Temp Pulse Resp BP Pulse Ox 37.1 C 77 18 140/72 H 95 01/29/18 03:37 01/29/18 03:37 01/29/18 03:37 01/29/18 03:37 01/29/18 03:37 Intake & Output 01/27/18 01/28/18 01/29/18 06:59 06:59 06:59 Intake Total 1382 951 755 Output Total 6130 1275 250 Balance -1278 -324 505 Weight 115.3 kg 112.1 kg 111.9 kg Physical Exam: Middle-aged black male lying in a hospital bed resting comfortably. Patient's alert and appropriate in interactions. General appearance: PRESENT: no acute distress Head exam: PRESENT: normocephalic Respiratory exam: PRESENT: unlabored Cardiovascular exam: PRESENT: RRR Pulses: PRESENT: +1 pedal pulses bilateral Vascular exam: PRESENT: normal capillary refill GI/Abdominal exam: PRESENT: soft Rectal exam: PRESENT: deferred Extremities exam: PRESENT: other - Examination of the right lower extremity reveals probably a low-grade effusion in the right knee. There is mild tenderness to palpation. There is no pain associate with passive range of motion. There is brisk capillary refill in each of the digits. There is no tenderness palpation over the foot and ankle. Neurological exam: PRESENT: alert, awake, oriented to person, oriented to place , oriented to time, oriented to situation. ABSENT: motor sensory deficit Psychiatric exam: PRESENT: appropriate affect, normal mood. ABSENT: homicidal ideation, suicidal ideation Skin exam: PRESENT: dry, intact, warm. ABSENT: cyanosis, rash Results Laboratory Results: 01/28/18 08:55 01/28/18 08:55 01/26/18 01/28/18 01/28/18 05:01 08:55 08:55 WBC 8.2 RBC 3.39 L Hgb 9.4 L Hct 28.8 L MCV 85 MCH 27.8 MCHC 32.8 RDW 15.3 H Plt Count 159 Seg Neutrophils % 77.4 Lymphocytes % 7.9 L Monocytes % 14.2 H Eosinophils % 0.2 Basophils % 0.3 Absolute Neutrophils 6.3 Absolute Lymphocytes 0.7 Absolute Monocytes 1.2 Absolute Eosinophils 0.0 Absolute Basophils 0.0 Sodium 142.0 Potassium 4.7 Chloride 104 Carbon Dioxide 26 Anion Gap 12 BUN 54 H Creatinine 2.96 H Est GFR ( Amer) 27 L Est GFR (Non-Af Amer) 22 L Glucose 122 H Uric Acid 10.4 H Calcium 8.0 L Total Protein 6.0 Albumin 3.0 01/27/18 09:00 Clean Catch Midstream Urine Culture - Final Mixed Urogenital Melissa 01/23/18 01/24/18 01/25/18 04:27 04:20 05:46 NT-Pro-B Natriuret Pep 8330 H 7460 H 8200 H Impressions: Chest X-Ray 01/22/18 14:51 IMPRESSION: Moderate cardiomegaly. No acute infiltrates. Abdomen/Pelvis CT 01/22/18 14:52 IMPRESSION: Small liver. Massive ascites. Evaluation of bowel is limited because of the ascites. Abdomen Ultrasound 01/25/18 00:00 IMPRESSION: Limited study as noted above. Ascitic fluid is identified. No other significant intra-abdominal abnormalities were identified. Paracentesis Ultrasound 01/25/18 08:16 IMPRESSION: Successful ultrasound-guided paracentesis Foot X-Ray 01/28/18 00:00 IMPRESSION: Marginal erosions at the 1st metatarsophalangeal joint worrisome for gout. Forefoot soft tissue swelling without acute fracture Knee X-Ray 01/28/18 00:00 IMPRESSION: Suprapatellar knee joint effusion could indicate internal derangement. Diffuse subcutaneous edema with diffuse arterial vascular calcifications. Status: Imported from PACS Assessment & Plan - Diagnosis (1) Right knee pain Qualifiers: Chronicity: acute Qualified Code(s): M25.561 - Pain in right knee Is this a current diagnosis for this admission?: Yes Plan: 57-year-old black male with what seems to be a resolving right knee pain. The patient has radiographic changes in his right first MTP joint consistent with a periarticular erosive process which may be gout in spite of his denial of the history. He is now being treated with colchicine and allopurinol and apparently the knee pain is resolving. 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 I think no further medication changes need to be made. I think this no clinical suspicion of this being a septic knee. Patient to be mobilized with physical therapy. - Time Time Spent: 50 to 70 Minutes Anticipated discharge: Other Within: Other
[2018-01-29] MEDS: LANSOPRAZOLE 15 MG TAB.RAP.DR PO SCH ×2 (06:31→17:35)
[2018-01-29] MEDS: HEPARIN SOD (PORCINE) 5,000 UNIT/ML 1 ML SYRINGE SUBCUT SCH ×3 (06:31→21:10)
--- NOTE | 2018-01-29 08:06 | XCELERA REPORT ---
[address] [address] Lower Extremity Venous Evaluation Procedure: Color flow and duplex imaging bilaterally of the veins of the lower extremities as well as the Common Femoral veins. Right Sided Venous Evaluation Normal vessel filling wall to wall, compression and augmentation as well as Colour flow down to the infrageniculate veins. Left Sided Venous Evaluation Difficult to see distal Femoral vein. due to swelling, movement. Normal vessel filling wall to wall, compression and augmentation as well as Colour flow down to the infrageniculate veins. Interpretation Summary No duplex evidence of DVT or obstruction in the bilateral lower extremities. Left sided challenges, as noted. Name: TONY WOODS Age: 57 yrs Gender: Male : 1960 Patient Status: Inpatient Patient Location: [facility]^A Study Date: 01/28/2018 07:34 PM Reason For Study: leg pain Ordering Physician: TREVA^^^ Performed By: Marilia Olsen : TREVA^^^ > Alex Connor
[2018-01-29 08:56] LABS: ABSOLUTE BASOPHILS # (AUTO) 0.1 10^3/uL (0.0-0.2); ABSOLUTE LYMPHOCYTES (AUTO) 0.6 10^3/uL (0.5-4.7); ABSOLUTE MONOCYTES (AUTO) 1.2 10^3/uL (0.1-1.4); BASOPHILS % (AUTO) 0.6 % (0-2); EOSINOPHILS % (AUTO) 0.2 % (0-6); HEMATOCRIT 27.1 % (37.9-51.0); MEAN CORPUSCULAR HEMOGLOBIN 28.3 pg (27.0-33.4); MEAN CORPUSCULAR HGB CONC 33.4 g/dL (32.0-36.0); MEAN CORPUSCULAR VOLUME 85 fl (80-97); MONOCYTES % (AUTO) 13.9 % (3-13); PLATELET COUNT 165 10^3/uL (150-450); RED CELL DISTRIBUTION WIDTH 15.7 % (11.5-14.0); SEGMENTED NEUTROPHILS % (AUTO) 78.3 % (42-78); TOTAL CELLS COUNTED % (AUTO) 100 %
[2018-01-29 09:25] LABS: ANION GAP 13 (5-19); BLOOD UREA NITROGEN 61 mg/dL (7-20); CALCIUM 8.1 mg/dL (8.4-10.2); CARBON DIOXIDE 26 mmol/L (22-30); CHLORIDE 104 mmol/L (98-107); GLUCOSE 121 mg/dL (75-110); POTASSIUM 4.7 mmol/L (3.6-5.0); SODIUM 142.5 mmol/L (137-145)
[2018-01-29] MEDS: MIDODRINE HCL 5 MG TABLET PO SCH ×3 (09:41→17:34)
[2018-01-29] MEDS: ALLOPURINOL 100 MG TABLET PO SCH (09:42)
[2018-01-29] MEDS: DOCUSATE SODIUM 100 MG CAPSULE PO SCH ×2 (09:42→17:35)
[2018-01-29] MEDS: COLCHICINE 0.6 MG TABLET PO SCH ×2 (09:42→22:14)
[2018-01-29] MEDS: METOPROLOL TARTRATE 50 MG TABLET PO SCH ×2 (09:42→22:14)
[2018-01-29] MEDS: TORSEMIDE 20 MG TABLET PO SCH (09:42)
[2018-01-29] MEDS: CALCIUM ACETATE 667 MG CAPSULE PO SCH ×3 (09:42→17:34)
[2018-01-29] MEDS: CEFEPIME 1 GM/D5W RTU 1 GM/50 ML RTUPB IV SCH ×2 (09:43→22:14)
--- NOTE | 2018-01-29 11:28 | PDOC PROGRESS REPORT ---
Subjective Progress Note for:: 01/29/18 Subjective:: Patient was laying in his bed in no acute distress. He still is having fevers. Awaiting paracentesis to rule out SBP. No complaints of chest pain, SOB, n/v/d/ c. Reason For Visit: CHF/SOB Physical Exam Vital Signs: Temp Pulse Resp BP Pulse Ox 100.5 F H 70 18 137/62 H 97 01/29/18 07:30 01/29/18 07:30 01/29/18 07:30 01/29/18 07:30 01/29/18 07:30 Intake & Output 01/28/18 01/29/18 01/30/18 06:59 06:59 06:59 Intake Total 951 955 Output Total 1275 250 Balance -324 705 Weight 112.1 kg 111.9 kg General appearance: PRESENT: no acute distress, well-developed, well-nourished Mouth exam: PRESENT: moist, neck supple Neck exam: ABSENT: JVD Respiratory exam: PRESENT: clear to auscultation darline. ABSENT: accessory muscle use, crackles, rales, rhonchi, wheezes Cardiovascular exam: PRESENT: +S1, +S2, systolic murmur GI/Abdominal exam: PRESENT: ascites, distended. ABSENT: tenderness Extremities exam: ABSENT: pedal edema, tenderness, +1 edema, +2 edema Musculoskeletal exam: ABSENT: normal inspection, tenderness Neurological exam: PRESENT: alert, awake, oriented to person, oriented to place , oriented to time, oriented to situation Skin exam: PRESENT: dry, erythema, skin tears, warm. ABSENT: cyanosis, intact Results Laboratory Results: 01/29/18 08:23 01/29/18 08:23 01/29/18 01/29/18 01/29/18 08:23 08:23 08:23 WBC 9.0 RBC 3.20 L Hgb 9.0 L Hct 27.1 L MCV 85 MCH 28.3 MCHC 33.4 RDW 15.7 H Plt Count 165 Seg Neutrophils % 78.3 H Lymphocytes % 7.0 L Monocytes % 13.9 H Eosinophils % 0.2 Basophils % 0.6 Absolute Neutrophils 7.0 Absolute Lymphocytes 0.6 Absolute Monocytes 1.2 Absolute Eosinophils 0.0 Absolute Basophils 0.1 Sodium 142.5 Potassium 4.7 Chloride 104 Carbon Dioxide 26 Anion Gap 13 BUN 61 H Creatinine 3.29 H Est GFR ( Amer) 24 L Est GFR (Non-Af Amer) 20 L Glucose 121 H Lactic Acid 0.7 Calcium 8.1 L 01/27/18 09:00 Clean Catch Midstream Urine Culture - Final Mixed Urogenital Melissa 01/23/18 01/24/18 01/25/18 04:27 04:20 05:46 NT-Pro-B Natriuret Pep 8330 H 7460 H 8200 H Impressions: Chest X-Ray 01/22/18 14:51 IMPRESSION: Moderate cardiomegaly. No acute infiltrates. Abdomen/Pelvis CT 01/22/18 14:52 IMPRESSION: Small liver. Massive ascites. Evaluation of bowel is limited because of the ascites. Abdomen Ultrasound 01/25/18 00:00 IMPRESSION: Limited study as noted above. Ascitic fluid is identified. No other significant intra-abdominal abnormalities were identified. Paracentesis Ultrasound 01/25/18 08:16 IMPRESSION: Successful ultrasound-guided paracentesis Foot X-Ray 01/28/18 00:00 IMPRESSION: Marginal erosions at the 1st metatarsophalangeal joint worrisome for gout. Forefoot soft tissue swelling without acute fracture Knee X-Ray 01/28/18 00:00 IMPRESSION: Suprapatellar knee joint effusion could indicate internal derangement. Diffuse subcutaneous edema with diffuse arterial vascular calcifications. Assessment & Plan - Diagnosis (1) Acute on chronic combined systolic (congestive) and diastolic (congestive) heart failure Is this a current diagnosis for this admission?: Yes Plan: currently stable at baseline (2) Acute renal failure Qualifiers: Acute renal failure type: unspecified Qualified Code(s): N17.9 - Acute kidney failure, unspecified Is this a current diagnosis for this admission?: Yes Plan: At baseline. (3) Anemia Qualifiers: Anemia type: due to chronic kidney disease Is this a current diagnosis for this admission?: Yes Plan: currently staying in the 9s, needs IV iron. He wants to do PO instead.. (4) Ascites Qualifiers: Ascites type: other type Qualified Code(s): R18.8 - Other ascites Is this a current diagnosis for this admission?: Yes Plan: (5) Chronic kidney disease (CKD), stage IV (severe) Plan: baseline is around 2.8; if creatinine keeps trending up over the weekend. I recommend decreasing the torsemide dose. (6) Hypertension Qualifiers: Hypertension type: essential hypertension Qualified Code(s): I10 - Essential (primary) hypertension Is this a current diagnosis for this admission?: Yes (7) Low grade fever Is this a current diagnosis for this admission?: Yes Plan: on IV cefepeme; currently Dr. Collazo is working him up for underling cause.
--- NOTE | 2018-01-29 14:58 | PDOC PROGRESS REPORT ---
Subjective Progress Note for:: 01/29/18 Subjective:: Patient is currently doing better up to start colchicine and allopurinol Patient seen by Dr. Osman no sign of any septic arthritis Patient's blood culture is also negative She does still have a fever most likely spontaneous bacterial peritonitis which currently continues with the IV antibiotic as per discussed with Dr. Krishnan Patient's denied any chest pain denied any shortness of the breath She has denied any abdominal pain no nausea no vomiting Reason For Visit: CHF/SOB Physical Exam Vital Signs: Temp Pulse Resp BP Pulse Ox 100.0 F 69 17 135/71 H 100 01/29/18 11:43 01/29/18 11:43 01/29/18 11:43 01/29/18 11:43 01/29/18 11:43 Intake & Output 01/28/18 01/29/18 01/30/18 06:59 06:59 06:59 Intake Total 951 955 950 Output Total 1275 250 600 Balance -324 705 350 Weight 112.1 kg 111.9 kg General appearance: PRESENT: no acute distress, well-developed, well-nourished Head exam: PRESENT: atraumatic, normocephalic Eye exam: PRESENT: conjunctiva pink, EOMI, PERRLA. ABSENT: scleral icterus Ear exam: PRESENT: normal external ear exam Mouth exam: PRESENT: moist, tongue midline Neck exam: PRESENT: full ROM. ABSENT: carotid bruit, JVD, lymphadenopathy, thyromegaly Respiratory exam: PRESENT: clear to auscultation darline Cardiovascular exam: PRESENT: RRR. ABSENT: diastolic murmur, rubs, systolic murmur Pulses: PRESENT: normal dorsalis pedis pul, +2 pedal pulses bilateral Vascular exam: PRESENT: normal capillary refill GI/Abdominal exam: PRESENT: ascites, normal bowel sounds, soft. ABSENT: distended, guarding, mass, organolmegaly, rebound, tenderness Rectal exam: PRESENT: deferred Extremities exam: ABSENT: pedal edema Musculoskeletal exam: PRESENT: ambulatory Neurological exam: PRESENT: alert, awake, oriented to person, oriented to place , oriented to time, oriented to situation, CN II-XII grossly intact. ABSENT: motor sensory deficit Psychiatric exam: PRESENT: appropriate affect, normal mood. ABSENT: homicidal ideation, suicidal ideation Skin exam: PRESENT: dry, intact, warm. ABSENT: cyanosis, rash Results Laboratory Results: 01/29/18 08:23 01/29/18 08:23 01/29/18 01/29/18 01/29/18 08:23 08:23 08:23 WBC 9.0 RBC 3.20 L Hgb 9.0 L Hct 27.1 L MCV 85 MCH 28.3 MCHC 33.4 RDW 15.7 H Plt Count 165 Seg Neutrophils % 78.3 H Lymphocytes % 7.0 L Monocytes % 13.9 H Eosinophils % 0.2 Basophils % 0.6 Absolute Neutrophils 7.0 Absolute Lymphocytes 0.6 Absolute Monocytes 1.2 Absolute Eosinophils 0.0 Absolute Basophils 0.1 Sodium 142.5 Potassium 4.7 Chloride 104 Carbon Dioxide 26 Anion Gap 13 BUN 61 H Creatinine 3.29 H Est GFR ( Amer) 24 L Est GFR (Non-Af Amer) 20 L Glucose 121 H Lactic Acid 0.7 Calcium 8.1 L 01/27/18 09:00 Clean Catch Midstream Urine Culture - Final Mixed Urogenital Melissa 01/23/18 01/24/18 01/25/18 04:27 04:20 05:46 NT-Pro-B Natriuret Pep 8330 H 7460 H 8200 H Impressions: Chest X-Ray 01/22/18 14:51 IMPRESSION: Moderate cardiomegaly. No acute infiltrates. Abdomen/Pelvis CT 01/22/18 14:52 IMPRESSION: Small liver. Massive ascites. Evaluation of bowel is limited because of the ascites. Abdomen Ultrasound 01/25/18 00:00 IMPRESSION: Limited study as noted above. Ascitic fluid is identified. No other significant intra-abdominal abnormalities were identified. Paracentesis Ultrasound 01/25/18 08:16 IMPRESSION: Successful ultrasound-guided paracentesis Foot X-Ray 01/28/18 00:00 IMPRESSION: Marginal erosions at the 1st metatarsophalangeal joint worrisome for gout. Forefoot soft tissue swelling without acute fracture Knee X-Ray 01/28/18 00:00 IMPRESSION: Suprapatellar knee joint effusion could indicate internal derangement. Diffuse subcutaneous edema with diffuse arterial vascular calcifications. Assessment & Plan - Diagnosis (1) Ascites Qualifiers: Ascites type: other type Qualified Code(s): R18.8 - Other ascites Is this a current diagnosis for this admission?: Yes Plan: Currently all stable (2) Congestive heart failure Qualifiers: Heart failure type: combined systolic and diastolic Heart failure chronicity: chronic Qualified Code(s): I50.42 - Chronic combined systolic ( congestive) and diastolic (congestive) heart failure Is this a current diagnosis for this admission?: Yes Plan: Currently all stable (3) Acute renal failure Qualifiers: Acute renal failure type: unspecified Qualified Code(s): N17.9 - Acute kidney failure, unspecified Is this a current diagnosis for this admission?: Yes Plan: Currently follow with the nephrology all stable (4) Chronic kidney disease Qualifiers: Chronic kidney disease stage: stage 4 (severe) Qualified Code(s): N18.4 - Chronic kidney disease, stage 4 (severe) Is this a current diagnosis for this admission?: Yes Plan: Follow with Dr. Wright (5) Hypertension Qualifiers: Hypertension type: essential hypertension Qualified Code(s): I10 - Essential (primary) hypertension Is this a current diagnosis for this admission?: Yes Plan: Continues the current medication (6) Protein calorie malnutrition Qualifiers: Protein-calorie malnutrition severity: moderate Qualified Code(s): E44.0 - Moderate protein-calorie malnutrition Is this a current diagnosis for this admission?: Yes (7) Noncompliance Is this a current diagnosis for this admission?: Yes (8) Low grade fever Is this a current diagnosis for this admission?: Yes Plan: Most likely's spontaneous bacterial peritonitis continues to IV antibiotic (9) Leg pain Qualifiers: Laterality: left Qualified Code(s): M79.605 - Pain in left leg Is this a current diagnosis for this admission?: Yes - Time Time Spent with patient: 15-24 minutes Medications reviewed and adjusted accordingly: Yes Anticipated discharge: Home Within: Other - Inpatient Certification Medical Necessity: Need Close Monitoring Due to Risk of Patient Decompensation Post Hospital Care: D/C Press Maintainer Documentation - Plan Summary Plan Summary: Continuous IV antibiotic discussed with the patient and the in the room
--- NOTE | 2018-01-29 17:09 | RADIOLOGY REPORT (SQ) ---
EXAM DESCRIPTION: U/S ABD PARACENTESIS COMPLETED DATE/TIME: 01/29/2018 4:58 pm REASON FOR STUDY: elevated white cells, elevated temperture. COMPARISON: None. LIMITATIONS: None. PROCEDURE: Procedure, risks, benefit, and alternative explained to patient who then gave written con sent. The left lower abdominal wall marked using ultrasound guidance. A time-out was called for cor rect marking verification. Abdomen prepped and draped using sterile technique. Local anesthesia achi eved using 10 ml of 1% lidocaine injection. A 6fr Caul-N-Ywkynqmt set was introduced into the perito jennifer cavity. Fluid was drained. The catheter was removed and entry site was covered with sterile ba ndage. No immediate complications noted. Images acquired during the procedure were stored on PACS. FINDINGS: ENTRY SITE: Left lower quadrant. FLUID VOLUME: 6000 mL. FLUID ANALYSIS: Straw-colored fluid. OTHER: Fluid sent to the lab for testing. IMPRESSION: SUCCESSFUL ULTRASOUND GUIDED PARACENTESIS. COMMENT: Patient medication list reviewed:Yes- Quality ID# [id number]:Eligible professional attests to docu menting in the medical record they obtained, updated, or reviewed the patient's current medications. TECHNICAL DOCUMENTATION: JOB ID: [id number] Work in Field- All Rights Reserved Reading location - IP/workstation name: [facility]
[2018-01-29 19:03] LABS: FLUID APPEARANCE SLIGHTLY HAZY; FLUID COLOR YELLOW; FLUID SOURCE ABDOMEN; FLUID TYPE PERITONEAL; FLUID VISCOSITY SLIGHTLY VISCOUS
[2018-01-30] MEDS: HEPARIN SOD (PORCINE) 5,000 UNIT/ML 1 ML SYRINGE SUBCUT SCH ×3 (06:35→23:07)
[2018-01-30] MEDS: LANSOPRAZOLE 15 MG TAB.RAP.DR PO SCH ×2 (06:35→18:15)
[2018-01-30] MEDS: COLCHICINE 0.6 MG TABLET PO SCH ×2 (10:33→23:07)
[2018-01-30] MEDS: DOCUSATE SODIUM 100 MG CAPSULE PO SCH ×2 (10:33→18:16)
[2018-01-30] MEDS: TORSEMIDE 20 MG TABLET PO SCH (10:33)
[2018-01-30] MEDS: METOPROLOL TARTRATE 50 MG TABLET PO SCH ×2 (10:34→23:07)
[2018-01-30] MEDS: CALCIUM ACETATE 667 MG CAPSULE PO SCH ×3 (10:34→18:15)
[2018-01-30] MEDS: CEFEPIME 1 GM/D5W RTU 1 GM/50 ML RTUPB IV SCH ×2 (10:34→23:06)
[2018-01-30] MEDS: ALLOPURINOL 100 MG TABLET PO SCH (10:34)
[2018-01-30] MEDS: MIDODRINE HCL 5 MG TABLET PO SCH ×4 (10:35→18:15)
--- NOTE | 2018-01-30 12:19 | PDOC PROGRESS REPORT ---
Subjective Progress Note for:: 01/30/18 Subjective:: Patient is currently doing better up to start colchicine and allopurinol Patient seen by Dr. Osman no sign of any septic arthritis Patient's blood culture is also negative She does still have a fever most likely spontaneous bacterial peritonitis which currently continues with the IV antibiotic as per discussed with Dr. Krishnan Patient's denied any chest pain denied any shortness of the breath She has denied any abdominal pain no nausea no vomiting Reason For Visit: CHF/SOB Physical Exam Vital Signs: Temp Pulse Resp BP Pulse Ox 98.9 F 67 16 128/68 H 98 01/30/18 11:28 01/30/18 11:28 01/30/18 11:28 01/30/18 11:28 01/30/18 11:28 Intake & Output 01/29/18 01/30/18 01/31/18 06:59 06:59 06:59 Intake Total 955 1687 Output Total 250 2250 Balance 705 -563 Weight 111.9 kg 107.7 kg General appearance: PRESENT: no acute distress, well-developed, well-nourished Head exam: PRESENT: atraumatic, normocephalic Eye exam: PRESENT: conjunctiva pink, EOMI, PERRLA. ABSENT: scleral icterus Ear exam: PRESENT: normal external ear exam Mouth exam: PRESENT: moist, tongue midline Neck exam: PRESENT: full ROM. ABSENT: carotid bruit, JVD, lymphadenopathy, thyromegaly Respiratory exam: PRESENT: clear to auscultation darline Cardiovascular exam: PRESENT: RRR. ABSENT: diastolic murmur, rubs, systolic murmur Pulses: PRESENT: normal dorsalis pedis pul, +2 pedal pulses bilateral Vascular exam: PRESENT: normal capillary refill GI/Abdominal exam: PRESENT: ascites, normal bowel sounds, soft. ABSENT: distended, guarding, mass, organolmegaly, rebound, tenderness Rectal exam: PRESENT: deferred Extremities exam: ABSENT: pedal edema Musculoskeletal exam: PRESENT: ambulatory Neurological exam: PRESENT: alert, awake, oriented to person, oriented to place , oriented to time, oriented to situation, CN II-XII grossly intact. ABSENT: motor sensory deficit Psychiatric exam: PRESENT: appropriate affect, normal mood. ABSENT: homicidal ideation, suicidal ideation Skin exam: PRESENT: dry, intact, warm. ABSENT: cyanosis, rash Results Laboratory Results: 01/29/18 08:23 01/29/18 08:23 01/29/18 15:44 Fluid Type PERITONEAL Fluid Source ABDOMEN Fluid Color YELLOW Fluid Appearance SLIGHTLY HAZY Fluid Viscosity SLIGHTLY VISCOUS Fluid WBC 6 Fluid RBC 16 01/28/18 11:10 Leg - Right Gram Stain - Final 01/28/18 11:10 Leg - Right Wound Culture - Final 2+ SKIN JODY 01/23/18 01/24/18 01/25/18 04:27 04:20 05:46 NT-Pro-B Natriuret Pep 8330 H 7460 H 8200 H Impressions: Chest X-Ray 01/22/18 14:51 IMPRESSION: Moderate cardiomegaly. No acute infiltrates. Abdomen/Pelvis CT 01/22/18 14:52 IMPRESSION: Small liver. Massive ascites. Evaluation of bowel is limited because of the ascites. Abdomen Ultrasound 01/25/18 00:00 IMPRESSION: Limited study as noted above. Ascitic fluid is identified. No other significant intra-abdominal abnormalities were identified. Foot X-Ray 01/28/18 00:00 IMPRESSION: Marginal erosions at the 1st metatarsophalangeal joint worrisome for gout. Forefoot soft tissue swelling without acute fracture Knee X-Ray 01/28/18 00:00 IMPRESSION: Suprapatellar knee joint effusion could indicate internal derangement. Diffuse subcutaneous edema with diffuse arterial vascular calcifications. Paracentesis Ultrasound 01/29/18 09:58 IMPRESSION: SUCCESSFUL ULTRASOUND GUIDED PARACENTESIS. 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 Wright (5) Hypertension Qualifiers: Hypertension type: essential hypertension Qualified Code(s): I10 - Essential (primary) hypertension Is this a current diagnosis for this admission?: Yes Plan: Continues the current medication (6) Protein calorie malnutrition Qualifiers: Protein-calorie malnutrition severity: moderate Qualified Code(s): E44.0 - Moderate protein-calorie malnutrition Is this a current diagnosis for this admission?: Yes Plan: Recheck the prealbumin and albumin replaced albumin (7) Noncompliance Is this a current diagnosis for this admission?: Yes (8) Low grade fever Is this a current diagnosis for this admission?: Yes Plan: Await further fluid culture (9) Leg pain Qualifiers: Laterality: left Qualified Code(s): M79.605 - Pain in left leg Is this a current diagnosis for this admission?: Yes - Time Time Spent with patient: 15-24 minutes Medications reviewed and adjusted accordingly: Yes Anticipated discharge: Home Within: Other - Inpatient Certification Medical Necessity: Need Close Monitoring Due to Risk of Patient Decompensation, Need for IV Antibiotics Post Hospital Care: D/C Store Merchandiser Documentation - Plan Summary Plan Summary: Continues to IV antibiotic
--- NOTE | 2018-01-30 15:48 | PDOC PROGRESS REPORT ---
Subjective Progress Note for:: 01/29/18 Subjective:: Patient is noted to have fever. Patient seems to be doing better with gradual improvement. Pt is denying any chest arm or neck discomfort. Patient denying any PND, orthopnea. Patient denied any sustained palpitations, dizziness, syncope, near syncope. Patient denying any fever chills. Patient denying any other significant discomfort. There is much improvement in abdominal distention and ascites. Patient is maintaining sinus rhythm. Review of systems: Rest review of systems negative. Medications: Medications have been reviewed. Reason For Visit: CHF/SOB Physical Exam Vital Signs: Temp Pulse Resp BP Pulse Ox 99.0 F 80 16 142/71 H 96 01/29/18 19:22 01/29/18 19:22 01/29/18 19:22 01/29/18 19:22 01/29/18 19:22 Intake & Output 01/28/18 01/29/18 01/30/18 06:59 06:59 06:59 Intake Total 079 937 5186 Output Total 4418 257 0577 Balance -324 705 -213 Weight 112.1 kg 111.9 kg Results Laboratory Results: 01/29/18 08:23 01/29/18 08:23 01/29/18 01/29/18 01/29/18 08:23 08:23 08:23 WBC 9.0 RBC 3.20 L Hgb 9.0 L Hct 27.1 L MCV 85 MCH 28.3 MCHC 33.4 RDW 15.7 H Plt Count 165 Seg Neutrophils % 78.3 H Lymphocytes % 7.0 L Monocytes % 13.9 H Eosinophils % 0.2 Basophils % 0.6 Absolute Neutrophils 7.0 Absolute Lymphocytes 0.6 Absolute Monocytes 1.2 Absolute Eosinophils 0.0 Absolute Basophils 0.1 Sodium 142.5 Potassium 4.7 Chloride 104 Carbon Dioxide 26 Anion Gap 13 BUN 61 H Creatinine 3.29 H Est GFR ( Amer) 24 L Est GFR (Non-Af Amer) 20 L Glucose 121 H Lactic Acid 0.7 Calcium 8.1 L Fluid Type Fluid Source Fluid Color Fluid Appearance Fluid Viscosity Fluid WBC Fluid RBC 01/29/18 15:44 WBC RBC Hgb Hct MCV MCH MCHC RDW Plt Count Seg Neutrophils % Lymphocytes % Monocytes % Eosinophils % Basophils % Absolute Neutrophils Absolute Lymphocytes Absolute Monocytes Absolute Eosinophils Absolute Basophils Sodium Potassium Chloride Carbon Dioxide Anion Gap BUN Creatinine Est GFR ( Amer) Est GFR (Non-Af Amer) Glucose Lactic Acid Calcium Fluid Type PERITONEAL Fluid Source ABDOMEN Fluid Color YELLOW Fluid Appearance SLIGHTLY HAZY Fluid Viscosity SLIGHTLY VISCOUS Fluid WBC 6 Fluid RBC 16 01/23/18 01/24/18 01/25/18 04:27 04:20 05:46 NT-Pro-B Natriuret Pep 8330 H 7460 H 8200 H Impressions: Chest X-Ray 01/22/18 14:51 IMPRESSION: Moderate cardiomegaly. No acute infiltrates. Abdomen/Pelvis CT 01/22/18 14:52 IMPRESSION: Small liver. Massive ascites. Evaluation of bowel is limited because of the ascites. Abdomen Ultrasound 01/25/18 00:00 IMPRESSION: Limited study as noted above. Ascitic fluid is identified. No other significant intra-abdominal abnormalities were identified. Foot X-Ray 01/28/18 00:00 IMPRESSION: Marginal erosions at the 1st metatarsophalangeal joint worrisome for gout. Forefoot soft tissue swelling without acute fracture Knee X-Ray 01/28/18 00:00 IMPRESSION: Suprapatellar knee joint effusion could indicate internal derangement. Diffuse subcutaneous edema with diffuse arterial vascular calcifications. Paracentesis Ultrasound 01/29/18 09:58 IMPRESSION: SUCCESSFUL ULTRASOUND GUIDED PARACENTESIS. Assessment & Plan - Diagnosis (1) Ascites Qualifiers: Ascites type: other type Qualified Code(s): R18.8 - Other ascites Is this a current diagnosis for this admission?: Yes (2) Chronic kidney disease Qualifiers: Chronic kidney disease stage: stage 4 (severe) Qualified Code(s): N18.4 - Chronic kidney disease, stage 4 (severe) Is this a current diagnosis for this admission?: Yes (3) Congestive heart failure Qualifiers: Heart failure type: combined systolic and diastolic Heart failure chronicity: chronic Qualified Code(s): I50.42 - Chronic combined systolic ( congestive) and diastolic (congestive) heart failure Is this a current diagnosis for this admission?: Yes (4) Hypertension Qualifiers: Hypertension type: essential hypertension Qualified Code(s): I10 - Essential (primary) hypertension Is this a current diagnosis for this admission?: Yes (5) Noncompliance Is this a current diagnosis for this admission?: Yes - Notes Notes: Ascites: There is now concern about spontaneous peritonitis. Patient on antibiotic therapy.. CHF: JVP is noted to be elevated. Patient showing predominantly right-sided CHF findings. Continue diuretic therapy. Currently seems well compensated. Hypertension: Currently blood pressure under reasonable control. Noncompliance: Patient has been noncompliant with medication diet and treatment of sleep apnea. Patient will benefit from further evaluation and management of sleep apnea. Sleep apnea syndrome: Patient claims a previous diagnosis of sleep apnea but never really got on CPAP therapy. This may need to be evaluated further as an outpatient. Treatment of sleep apnea will often help right heart failure. Obesity: Discussed that obesity and hepatic steatosis is now a cause of cirrhosis of liver. Patient will benefit from gradual weight loss but this can be carried out as an outpatient. Ascites could account for his recent weight gain could be related to ascites. - Time Time with patient: 15-25 minutes - More than 50% of the time spent coordinating care, discussing management plans with involved caregivers. Management plans discussed with involved personnels. Medical decision making was of moderate to high complexity, patient's has multiple comorbidities. Will sign off. Please reconsult if needed. Medications reviewed and adjusted accordingly: Yes
[2018-01-31] MEDS: HEPARIN SOD (PORCINE) 5,000 UNIT/ML 1 ML SYRINGE SUBCUT SCH ×3 (05:12→22:31)
[2018-01-31] MEDS: LANSOPRAZOLE 15 MG TAB.RAP.DR PO SCH ×2 (05:12→17:48)
[2018-01-31] MEDS: CALCIUM ACETATE 667 MG CAPSULE PO SCH ×3 (08:58→17:48)
[2018-01-31] MEDS: ALLOPURINOL 100 MG TABLET PO SCH (09:00)
[2018-01-31] MEDS: MIDODRINE HCL 5 MG TABLET PO SCH ×3 (09:00→17:48)
[2018-01-31] MEDS: TORSEMIDE 20 MG TABLET PO SCH (09:00)
[2018-01-31] MEDS: DOCUSATE SODIUM 100 MG CAPSULE PO SCH ×2 (09:00→17:48)
[2018-01-31] MEDS: COLCHICINE 0.6 MG TABLET PO SCH ×2 (09:00→22:31)
[2018-01-31] MEDS: METOPROLOL TARTRATE 50 MG TABLET PO SCH ×2 (09:00→22:31)
--- NOTE | 2018-01-31 10:26 | PDOC PROGRESS REPORT ---
Subjective Progress Note for:: 01/31/18 Subjective:: Patient is currently doing better up to start colchicine and allopurinol Patient seen by Dr. Osman no sign of any septic arthritis Patient's blood culture is also negative She does still have a fever most likely spontaneous bacterial peritonitis which currently continues with the IV antibiotic as per discussed with Dr. Krishnan Patient's denied any chest pain denied any shortness of the breath She has denied any abdominal pain no nausea no vomiting Reason For Visit: CHF/SOB Physical Exam Vital Signs: Temp Pulse Resp BP Pulse Ox 97.9 F 68 16 118/62 100 01/31/18 07:50 01/31/18 07:50 01/31/18 07:50 01/31/18 07:50 01/31/18 07:50 Intake & Output 01/30/18 01/31/18 02/01/18 06:59 06:59 06:59 Intake Total 1687 868 Output Total 2250 1300 Balance -563 -432 Weight 107.7 kg 109.3 kg General appearance: PRESENT: no acute distress, well-developed, well-nourished Head exam: PRESENT: atraumatic, normocephalic Eye exam: PRESENT: conjunctiva pink, EOMI, PERRLA. ABSENT: scleral icterus Ear exam: PRESENT: normal external ear exam Mouth exam: PRESENT: moist, tongue midline Neck exam: PRESENT: full ROM. ABSENT: carotid bruit, JVD, lymphadenopathy, thyromegaly Respiratory exam: PRESENT: clear to auscultation darline Cardiovascular exam: PRESENT: RRR. ABSENT: diastolic murmur, rubs, systolic murmur Pulses: PRESENT: normal dorsalis pedis pul, +2 pedal pulses bilateral Vascular exam: PRESENT: normal capillary refill GI/Abdominal exam: PRESENT: ascites, normal bowel sounds, soft. ABSENT: distended, guarding, mass, organolmegaly, rebound, tenderness Rectal exam: PRESENT: deferred Extremities exam: ABSENT: pedal edema Neurological exam: PRESENT: alert, awake, oriented to person, oriented to place , oriented to time, oriented to situation, CN II-XII grossly intact. ABSENT: motor sensory deficit Psychiatric exam: PRESENT: appropriate affect, normal mood. ABSENT: homicidal ideation, suicidal ideation Skin exam: PRESENT: dry, intact, warm. ABSENT: cyanosis, rash Results Laboratory Results: 01/29/18 08:23 01/29/18 08:23 01/28/18 11:10 Leg - Right Gram Stain - Final 01/28/18 11:10 Leg - Right Wound Culture - Final 2+ SKIN JODY 01/23/18 01/24/18 01/25/18 04:27 04:20 05:46 NT-Pro-B Natriuret Pep 8330 H 7460 H 8200 H Impressions: Chest X-Ray 01/22/18 14:51 IMPRESSION: Moderate cardiomegaly. No acute infiltrates. Abdomen/Pelvis CT 01/22/18 14:52 IMPRESSION: Small liver. Massive ascites. Evaluation of bowel is limited because of the ascites. Abdomen Ultrasound 01/25/18 00:00 IMPRESSION: Limited study as noted above. Ascitic fluid is identified. No other significant intra-abdominal abnormalities were identified. Foot X-Ray 01/28/18 00:00 IMPRESSION: Marginal erosions at the 1st metatarsophalangeal joint worrisome for gout. Forefoot soft tissue swelling without acute fracture Knee X-Ray 01/28/18 00:00 IMPRESSION: Suprapatellar knee joint effusion could indicate internal derangement. Diffuse subcutaneous edema with diffuse arterial vascular calcifications. Paracentesis Ultrasound 01/29/18 09:58 IMPRESSION: SUCCESSFUL ULTRASOUND GUIDED PARACENTESIS. 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 Wright (5) Hypertension Qualifiers: Hypertension type: essential hypertension Qualified Code(s): I10 - Essential (primary) hypertension Is this a current diagnosis for this admission?: Yes Plan: Continues the current medication (6) Protein calorie malnutrition Qualifiers: Protein-calorie malnutrition severity: moderate Qualified Code(s): E44.0 - Moderate protein-calorie malnutrition Is this a current diagnosis for this admission?: Yes Plan: Recheck the prealbumin and albumin replaced albumin (7) Noncompliance Is this a current diagnosis for this admission?: Yes (8) Low grade fever Is this a current diagnosis for this admission?: Yes Plan: Await further fluid culture (9) Leg pain Qualifiers: Laterality: left Qualified Code(s): M79.605 - Pain in left leg Is this a current diagnosis for this admission?: Yes - Time Time Spent with patient: 15-24 minutes Medications reviewed and adjusted accordingly: Yes Anticipated discharge: Other Within: Other - Inpatient Certification Medical Necessity: Need Close Monitoring Due to Risk of Patient Decompensation, Need for IV Antibiotics Post Hospital Care: D/C Ethics Manager Documentation - Plan Summary Plan Summary: stable
[2018-01-31] MEDS: CEFEPIME 1 GM/D5W RTU 1 GM/50 ML RTUPB IV SCH ×2 (11:22→22:31)
[2018-02-01] MEDS: LANSOPRAZOLE 15 MG TAB.RAP.DR PO SCH ×2 (06:04→17:50)
[2018-02-01] MEDS: HEPARIN SOD (PORCINE) 5,000 UNIT/ML 1 ML SYRINGE SUBCUT SCH ×2 (06:04→13:55)
[2018-02-01] MEDS: CALCIUM ACETATE 667 MG CAPSULE PO SCH ×3 (08:31→17:50)
[2018-02-01 09:03] LABS: ANION GAP 8 (5-19); BLOOD UREA NITROGEN 65 mg/dL (7-20); CALCIUM 7.9 mg/dL (8.4-10.2); CARBON DIOXIDE 30 mmol/L (22-30); CHLORIDE 105 mmol/L (98-107); GLUCOSE 148 mg/dL (75-110); POTASSIUM 4.9 mmol/L (3.6-5.0); SODIUM 142.6 mmol/L (137-145)
--- NOTE | 2018-02-01 10:11 | PDOC PROGRESS REPORT ---
Subjective Progress Note for:: 02/01/18 Reason For Visit: Patient seen today. He is up in bed. He has been mobile over the weekend. He denies any history of fever or chills or riders. No complaints of any chest pains or shortness of breath or abdominal pains. Overall he feels a whole lot better than when he came in. Labs and medications were reviewed with the patient. Physical Exam Vital Signs: Temp Pulse Resp BP Pulse Ox 98.4 F 71 16 118/55 L 99 02/01/18 03:41 02/01/18 07:00 02/01/18 03:41 02/01/18 03:41 02/01/18 03:41 Intake & Output 01/31/18 02/01/18 02/02/18 06:59 06:59 06:59 Intake Total 868 1556 50 Output Total 1300 1675 Balance -432 -119 50 Weight 109.3 kg 108.3 kg General appearance: PRESENT: no acute distress Respiratory exam: PRESENT: clear to auscultation darline. ABSENT: crackles Cardiovascular exam: PRESENT: +S1, +S2, systolic murmur GI/Abdominal exam: PRESENT: ascites, distended, normal bowel sounds. ABSENT: tenderness Extremities exam: ABSENT: pedal edema Neurological exam: PRESENT: alert, awake, oriented to person, oriented to place Results Laboratory Results: 01/29/18 08:23 02/01/18 08:12 02/01/18 08:12 Sodium 142.6 Potassium 4.9 Chloride 105 Carbon Dioxide 30 Anion Gap 8 BUN 65 H Creatinine 2.79 H Est GFR ( Amer) 29 L Est GFR (Non-Af Amer) 24 L Glucose 148 H Calcium 7.9 L 01/27/18 08:12 Blood Blood Culture - Final NO GROWTH IN 5 DAYS 01/23/18 01/24/18 01/25/18 04:27 04:20 05:46 NT-Pro-B Natriuret Pep 8330 H 7460 H 8200 H Impressions: Chest X-Ray 01/22/18 14:51 IMPRESSION: Moderate cardiomegaly. No acute infiltrates. Abdomen/Pelvis CT 01/22/18 14:52 IMPRESSION: Small liver. Massive ascites. Evaluation of bowel is limited because of the ascites. Abdomen Ultrasound 01/25/18 00:00 IMPRESSION: Limited study as noted above. Ascitic fluid is identified. No other significant intra-abdominal abnormalities were identified. Foot X-Ray 01/28/18 00:00 IMPRESSION: Marginal erosions at the 1st metatarsophalangeal joint worrisome for gout. Forefoot soft tissue swelling without acute fracture Knee X-Ray 01/28/18 00:00 IMPRESSION: Suprapatellar knee joint effusion could indicate internal derangement. Diffuse subcutaneous edema with diffuse arterial vascular calcifications. Paracentesis Ultrasound 01/29/18 09:58 IMPRESSION: SUCCESSFUL ULTRASOUND GUIDED PARACENTESIS. Assessment & Plan - Diagnosis (1) Acute renal failure Qualifiers: Acute renal failure type: unspecified Qualified Code(s): N17.9 - Acute kidney failure, unspecified Is this a current diagnosis for this admission?: Yes Plan: Improving renal numbers. Nonoliguric. From a renal perspective he is fit to be discharged once other issues are sorted out. (2) Chronic kidney disease (CKD), stage IV (severe) Plan: Nonoliguric. Stable renal numbers. Continue present lines of management. No indications for renal replacements. (3) Acute on chronic combined systolic (congestive) and diastolic (congestive) heart failure Is this a current diagnosis for this admission?: Yes Plan: Stable. Did review his echocardiogram that shows rather stable LV function. He has got moderate pulmonary hypertension. (4) Ascites Qualifiers: Ascites type: other type Qualified Code(s): R18.8 - Other ascites Is this a current diagnosis for this admission?: Yes Plan: Status post 2 large volume paracentesis for approximately 20 L patient feeling a whole lot better. GI involved for further evaluations.. (5) Anemia Qualifiers: Anemia type: due to chronic kidney disease Is this a current diagnosis for this admission?: Yes Plan: Severe iron deficiency. Would benefit from IV iron infusions. Patient currently opted for p.o. iron. We will monitor.
[2018-02-01] MEDS: ALLOPURINOL 100 MG TABLET PO SCH (10:41)
[2018-02-01] MEDS: DOCUSATE SODIUM 100 MG CAPSULE PO SCH ×2 (10:41→17:50)
[2018-02-01] MEDS: COLCHICINE 0.6 MG TABLET PO SCH (10:41)
[2018-02-01] MEDS: METOPROLOL TARTRATE 50 MG TABLET PO SCH (10:41)
[2018-02-01] MEDS: CEFEPIME 1 GM/D5W RTU 1 GM/50 ML RTUPB IV SCH (10:42)
[2018-02-01] MEDS: TORSEMIDE 20 MG TABLET PO SCH (10:42)
[2018-02-01] MEDS: MIDODRINE HCL 5 MG TABLET PO SCH ×3 (10:42→17:50)
--- NOTE | 2018-02-01 17:26 | PDOC DISCHARGE SUMMARY ---
General - Admit/Disc Date/PCP Admission Date/Primary Care Provider: 01/22/18 15:02 LUKAS BRODY MD Discharge Date: 02/01/18 - Discharge Diagnosis (1) Ascites Is this a current diagnosis for this admission?: Yes Summary: Status post paracentesis status post paracentesis 3 no sign of any malignancy Remove total 26 L of fluid Follow-up outpatient see Ariella already seen some pending report (2) Congestive heart failure Is this a current diagnosis for this admission?: Yes Summary: Patient with diastolic congestive heart failure Seen by the cardiology Cardiogram is all stable with the EF is stable (3) Acute renal failure Is this a current diagnosis for this admission?: Yes Summary: Currently all stable to follow-up with the [facility] (4) Chronic kidney disease Is this a current diagnosis for this admission?: Yes (5) Hypertension Is this a current diagnosis for this admission?: Yes Summary: Current current medication (6) Protein calorie malnutrition Is this a current diagnosis for this admission?: Yes (7) Noncompliance Is this a current diagnosis for this admission?: Yes Summary: Very extensive discussions with the patient's and family (8) Low grade fever Is this a current diagnosis for this admission?: Yes Summary: Most likely a spontaneous bacterial peritonitis findings the 5 days of the IV antibiotic and discharged with the p.o. antibiotic as per discussed with Dr. Krishnan (9) Leg pain Is this a current diagnosis for this admission?: Yes Summary: from the gout (10) Gout Is this a current diagnosis for this admission?: Yes Summary: Allopurinol - Additional Information Discharge Diet: Cardiac Discharge Activity: Activity As Tolerated, Balance Activity w/Rest, Weigh Daily Prescriptions: Allopurinol [Zyloprim 100 mg Tablet] 100 mg PO DAILY #30 tablet Cefuroxime Axetil [Ceftin 500 mg Tablet] 1 tab PO BID #14 tablet Colchicine [Colcrys 0.6 mg Tablet] 0.6 mg PO DAILY #30 tablet Midodrine HCl [Proamatine 5 mg Tablet] 2.5 mg PO TID #90 tablet Omeprazole 20 mg PO DAILY #30 tablet. Torsemide [Demadex 20 mg Tablet] 20 mg PO DAILY #30 tablet Home Medications: Calcium Acetate [Phoslo 667 mg Capsule] 667 mg PO MEALS 01/22/18 Metoprolol Tartrate [Lopressor 50 mg Tablet] 50 mg PO Q12 01/22/18 Allopurinol [Zyloprim 100 mg Tablet] 100 mg PO DAILY #30 tablet 02/01/18 Cefuroxime Axetil [Ceftin 500 mg Tablet] 1 tab PO BID #14 tablet 02/01/18 Colchicine [Colcrys 0.6 mg Tablet] 0.6 mg PO DAILY #30 tablet 02/01/18 Midodrine HCl [Proamatine 5 mg Tablet] 2.5 mg PO TID #90 tablet 02/01/18 Omeprazole 20 mg PO DAILY #30 tablet. 02/01/18 Torsemide [Demadex 20 mg Tablet] 20 mg PO DAILY #30 tablet 02/01/18 History of Present Illness History of Present Illness: TONY WOODS is a 57 year old maleWith a significant history of congestive heart failure with EF is mildly depressed per Dr. [place] Dr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 Wright and noticed the patient's gains almost 60 pounds since last year in patients was referred back to the my office patient [place]ight [place] the [place] patient's gained almost 35 pounds since October patients have a use of ascites but patient is otherwise alert awake snorted and distressed denied any chest pain denied any shortness of the breathDecided to the admitted in the hospital for the paracentesis and IV Lasix drip and discussed with the Dr. 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 Krishnan need outpatient endoscopy Patient with several blood work done and some pending report to look for any autoimmune disease for the cirrhosis of the liver Patient's cytology workup was all negative for any malignancy Patient also developed a spontaneous bacterial peritonitis was treated with the IV antibiotic times more than 5 days and discharged with oral antibiotics Patients all culture is negative Patient is to remain afebrile Patient also have a gout attack seen by Dr. Osman rule out all septic arthritis Patient also a chronic kidney disease seen by Dr. Wright Patient otherwise remained stable Remain afebrile Blood work is all stable P.o. intake is good Patient was walked in the hallway without any problems Right leg wound was treated with the dressing change Physical Exam Vital Signs: Temp Pulse Resp BP Pulse Ox 98.1 F 61 16 130/72 H 99 02/01/18 15:53 02/01/18 15:53 02/01/18 15:53 02/01/18 15:53 02/01/18 15:53 Intake & Output 01/31/18 02/01/18 02/02/18 06:59 06:59 06:59 Intake Total 868 1556 100 Output Total 1300 1675 Balance -432 -119 100 Weight 109.3 kg 108.3 kg General appearance: PRESENT: no acute distress, well-developed, well-nourished Head exam: PRESENT: atraumatic, normocephalic Eye exam: PRESENT: conjunctiva pink, EOMI, PERRLA. ABSENT: scleral icterus Ear exam: PRESENT: normal external ear exam Mouth exam: PRESENT: moist, tongue midline Neck exam: PRESENT: full ROM. ABSENT: carotid bruit, JVD, lymphadenopathy, thyromegaly Respiratory exam: PRESENT: clear to auscultation darline Cardiovascular exam: PRESENT: RRR. ABSENT: diastolic murmur, rubs, systolic murmur Pulses: PRESENT: normal dorsalis pedis pul, +2 pedal pulses bilateral Vascular exam: PRESENT: normal capillary refill GI/Abdominal exam: PRESENT: ascites, normal bowel sounds, soft. ABSENT: distended, guarding, mass, organolmegaly, rebound, tenderness Rectal exam: PRESENT: deferred Extremities exam: ABSENT: pedal edema Musculoskeletal exam: PRESENT: ambulatory Neurological exam: PRESENT: alert, awake, oriented to person, oriented to place , oriented to time, oriented to situation, CN II-XII grossly intact. ABSENT: motor sensory deficit Psychiatric exam: PRESENT: appropriate affect, normal mood. ABSENT: homicidal ideation, suicidal ideation Skin exam: PRESENT: dry, intact, warm. ABSENT: cyanosis, rash Results Laboratory Results: 01/29/18 08:23 02/01/18 08:12 02/01/18 08:12 Sodium 142.6 Potassium 4.9 Chloride 105 Carbon Dioxide 30 Anion Gap 8 BUN 65 H Creatinine 2.79 H Est GFR ( Amer) 29 L Est GFR (Non-Af Amer) 24 L Glucose 148 H Calcium 7.9 L 01/27/18 10:00 Blood Blood Culture - Final NO GROWTH IN 5 DAYS 01/27/18 08:12 Blood Blood Culture - Final NO GROWTH IN 5 DAYS 01/23/18 01/24/18 01/25/18 04:27 04:20 05:46 NT-Pro-B Natriuret Pep 8330 H 7460 H 8200 H Impressions: Chest X-Ray 01/22/18 14:51 IMPRESSION: Moderate cardiomegaly. No acute infiltrates. Abdomen/Pelvis CT 01/22/18 14:52 IMPRESSION: Small liver. Massive ascites. Evaluation of bowel is limited because of the ascites. Abdomen Ultrasound 01/25/18 00:00 IMPRESSION: Limited study as noted above. Ascitic fluid is identified. No other significant intra-abdominal abnormalities were identified. Foot X-Ray 01/28/18 00:00 IMPRESSION: Marginal erosions at the 1st metatarsophalangeal joint worrisome for gout. Forefoot soft tissue swelling without acute fracture Knee X-Ray 01/28/18 00:00 IMPRESSION: Suprapatellar knee joint effusion could indicate internal derangement. Diffuse subcutaneous edema with diffuse arterial vascular calcifications. Paracentesis Ultrasound 01/29/18 09:58 IMPRESSION: SUCCESSFUL ULTRASOUND GUIDED PARACENTESIS. Qualifiers - * PATIENT BEING DISCHARGED WITH ANY OF THE FOLLOWING DIAGNOSIS: No VTE patient discharged on overlapping Therapy?: Yes Plan Time Spent: Greater than 30 Minutes - Patient is discharged home with the stable conditions
[2018-02-01 17:46] VITALS: BP 171/92
== END 2018-02-01 19:40 | disposition home or self-care (01) | DRG 432 ==
LOC: ER 12:44 → EH 15:02 → 3W 17:07
PROVIDERS: ADMIT Family Medicine; ATTEND Family Medicine
PROC: 0W9G3ZX Drainage of Peritoneal Cavity, Percutaneous Approach, Diagnostic (ICD-10-PCS; principal; 2018-01-22)
PROC: 0W9G3ZZ Drainage of Peritoneal Cavity, Percutaneous Approach (ICD-10-PCS; 2018-01-25)
PROC: 0W9G3ZZ Drainage of Peritoneal Cavity, Percutaneous Approach (ICD-10-PCS; 2018-01-29)
DX: K74.60 Unspecified cirrhosis of liver (principal); K65.2 Spontaneous bacterial peritonitis; R18.8 Other ascites; I13.0 Hypertensive heart and chronic kidney disease with heart failure and stage 1 through stage 4 chronic kidney disease, or unspecified chronic kidney disease; N17.9 Acute kidney failure, unspecified; N18.4 Chronic kidney disease, stage 4 (severe); I50.42 Chronic combined systolic (congestive) and diastolic (congestive) heart failure; E44.0 Moderate protein-calorie malnutrition; I27.20 Pulmonary hypertension, unspecified; E78.5 Hyperlipidemia, unspecified; D63.1 Anemia in chronic kidney disease; K21.9 Gastro-esophageal reflux disease without esophagitis; M10.9 Gout, unspecified; M79.605 Pain in left leg; M25.561 Pain in right knee; G47.33 Obstructive sleep apnea (adult) (pediatric); R63.5 Abnormal weight gain; Z68.34 Body mass index [BMI] 34.0-34.9, adult; Z91.11 Patient's noncompliance with dietary regimen
CPT/HCPCS: 36415; 49083; 71045; 74176; 76705; 80048; 80053; 80074; 81001; 82042; 82607; 82728; 82746; 83036; 83540; 83550; 83605; 83690; 83735; 83880; 84157; 84165; 84443; 84550; 85025; 85027; 85045; 85610; 85730; 86038; 86235; 86256; 87040; 87070; 87075; 87077; 87086; 87205; 89050; 93005; 93010; 93306; 93970; 99285; J0692; J1644; J1940; J3490; J7050; P9047

== ENCOUNTER → 2018-02-05 | Outpatient (CLI) | payer OTHER ==
[2018-02-05 11:07] LABS: HEMATOCRIT 28.8 % (37.9-51.0); HEMOGLOBIN 9.4 g/dL (13.5-17.0); MEAN CORPUSCULAR HEMOGLOBIN 27.4 pg (27.0-33.4); MEAN CORPUSCULAR HGB CONC 32.4 g/dL (32.0-36.0); MEAN CORPUSCULAR VOLUME 85 fl (80-97); PLATELET COUNT 336 10^3/uL (150-450); RED BLOOD COUNT 3.41 10^6/uL (4.35-5.55); RED CELL DISTRIBUTION WIDTH 15.2 % (11.5-14.0); WHITE BLOOD COUNT 5.2 10^3/uL (4.0-10.5)
[2018-02-05 11:16] LABS: APPEARANCE,URINE CLEAR; BILIRUBIN,URINE NEGATIVE (NEGATIVE); COLOR,URINE YELLOW; GLUCOSE, URINE NEGATIVE (NEGATIVE); KETONES,URINE NEGATIVE (NEGATIVE); LEUKOCYTE ESTERASE,URINE NEGATIVE (NEGATIVE); NITRITE,URINE NEGATIVE (NEGATIVE); PROTEIN,URINE 30 mg/dL (NEGATIVE); URINE SPECIFIC GRAVITY 1.014
[2018-02-05 11:32] LABS: ANION GAP 13 (5-19); BLOOD UREA NITROGEN 54 mg/dL (7-20); CALCIUM 8.7 mg/dL (8.4-10.2); CARBON DIOXIDE 27 mmol/L (22-30); CHLORIDE 108 mmol/L (98-107); GLUCOSE 99 mg/dL (75-110); POTASSIUM 4.9 mmol/L (3.6-5.0); SODIUM 148.3 mmol/L (137-145)
== END ==
LOC: OD 09:51
PROVIDERS: ATTEND Internal Medicine Nephrology
DX: E11.22 Type 2 diabetes mellitus with diabetic chronic kidney disease (principal); N18.5 Chronic kidney disease, stage 5; I50.9 Heart failure, unspecified; R18.8 Other ascites
CPT/HCPCS: 36415; 80048; 81001; 85027

== ENCOUNTER → 2018-03-19 | Outpatient (CLI) | payer OTHER ==
[2018-03-19 14:41] LABS: ABSOLUTE EOSINOPHILS # (AUTO) 0.1 10^3/uL (0.0-0.6); ABSOLUTE LYMPHOCYTES (AUTO) 0.8 10^3/uL (0.5-4.7); ABSOLUTE MONOCYTES (AUTO) 0.4 10^3/uL (0.1-1.4); ABSOLUTE NEUT (AUTO) 2.5 10^3/uL (1.7-8.2); BASOPHILS % (AUTO) 0.9 % (0-2); EOSINOPHILS % (AUTO) 3.5 % (0-6); HEMATOCRIT 29.1 % (37.9-51.0); HEMOGLOBIN 9.8 g/dL (13.5-17.0); LYMPHOCYTES % (AUTO) 19.3 % (13-45); MEAN CORPUSCULAR HGB CONC 33.5 g/dL (32.0-36.0); MEAN CORPUSCULAR VOLUME 84 fl (80-97); MONOCYTES % (AUTO) 11.5 % (3-13); PLATELET COUNT 182 10^3/uL (150-450); RED BLOOD COUNT 3.49 10^6/uL (4.35-5.55); SEGMENTED NEUTROPHILS % (AUTO) 64.8 % (42-78); TOTAL CELLS COUNTED % (AUTO) 100 %; WHITE BLOOD COUNT 3.9 10^3/uL (4.0-10.5)
[2018-03-19 15:11] LABS: ANION GAP 11 (5-19); BLOOD UREA NITROGEN 54 mg/dL (7-20); CARBON DIOXIDE 22 mmol/L (22-30); CHLORIDE 109 mmol/L (98-107); GLUCOSE 82 mg/dL (75-110); IRON(TIBC) 29.1 ug/dL (49-181); PHOSPHORUS 5.1 mg/dL (2.5-4.5); POTASSIUM 4.6 mmol/L (3.6-5.0); SODIUM 142.2 mmol/L (137-145)
[2018-03-19 15:23] LABS: APPEARANCE,URINE CLEAR; BILIRUBIN,URINE NEGATIVE (NEGATIVE); COLOR,URINE YELLOW; GLUCOSE, URINE NEGATIVE (NEGATIVE); KETONES,URINE NEGATIVE (NEGATIVE); LEUKOCYTE ESTERASE,URINE NEGATIVE (NEGATIVE); NITRITE,URINE NEGATIVE (NEGATIVE); PROTEIN,URINE NEGATIVE (NEGATIVE); URINE SPECIFIC GRAVITY 1.012; UROBILINOGEN,URINE NEGATIVE mg/dL (<2.0)
[2018-03-19 15:50] LABS: UR PRO/CREAT RATIO RESULT 0.4 mg/mg (0.0-0.2); URINE CREATININE 69.4 mg/dL (22-328); URINE PROTEIN 27.7 mg/dL (<12)
== END ==
LOC: OD 14:05
PROVIDERS: ATTEND Internal Medicine Nephrology
DX: N18.4 Chronic kidney disease, stage 4 (severe) (principal); I50.9 Heart failure, unspecified; E11.9 Type 2 diabetes mellitus without complications; R80.9 Proteinuria, unspecified
CPT/HCPCS: 36415; 80048; 81001; 82570; 82728; 83540; 83550; 83970; 84100; 84156; 85025

== ENCOUNTER 2019-11-15 13:17 | Inpatient (IN) | payer OTHER ==
--- NOTE | 2019-11-15 13:32 | ER Document Report ---
ED Medical Screen (RME) - General Chief Complaint: Abdominal Distention Stated Complaint: ABDOMINAL DISTENSION Time Seen by Provider: 11/15/19 13:29 Primary Care Provider: Nir BROOKS MD [Primary Care Provider] - Follow up as needed Mode of Arrival: Wheelchair Information source: Patient Notes: 59-year-old male presented to ED for paracentesis. He states that every so often he needs to get his abdomen drained. He states he has severe ascites chronic end-stage renal disease and CHF. His abdomen is extremely distended and taut. He does have facial edema and peripheral edema. He is alert oriented respirations regular and unlabored speaking in full sentences at this time. IR may TRAVEL OUTSIDE OF THE [place] IN LAST 30 DAYS: No - Related Data Allergies/Adverse Reactions: No Known Allergies Allergy (Verified 11/15/19 13:28) Past Medical History - Past Medical History Cardiac Medical History: Reports: Hx Congestive Heart Failure, Hx Hypercholesterolemia, Hx Hypertension Pulmonary Medical History: Reports: Hx Sleep Apnea Renal/ Medical History: Denies: Hx Peritoneal Dialysis GI Medical History: Reports: Hx Gastroesophageal Reflux Disease Psychiatric Medical History: Denies: Hx Depression Physical Exam - Vital signs Vitals: Temp Pulse Resp BP Pulse Ox 98.1 F 85 20 198/98 H 96 11/15/19 13:24 11/15/19 13:24 11/15/19 13:24 11/15/19 13:24 11/15/19 13:24 Course - Vital Signs Vital signs: Temp Pulse Resp BP Pulse Ox 98.1 F 85 20 198/98 H 96 11/15/19 13:24 11/15/19 13:24 11/15/19 13:24 11/15/19 13:24 11/15/19 13:24 Doctor's Discharge - Discharge Referrals: Nir BROOKS MD [Primary Care Provider] - Follow up as needed
[2019-11-15 14:22] LABS: ABSOLUTE BASOPHILS # (AUTO) 0.1 10^3/uL (0.0-0.2); ABSOLUTE EOSINOPHILS # (AUTO) 0.1 10^3/uL (0.0-0.6); ABSOLUTE LYMPHOCYTES (AUTO) 0.4 10^3/uL (0.5-4.7); ABSOLUTE MONOCYTES (AUTO) 0.5 10^3/uL (0.1-1.4); ABSOLUTE NEUT (AUTO) 4.7 10^3/uL (1.7-8.2); BASOPHILS % (AUTO) 1.1 % (0-2); HEMATOCRIT 35.1 % (37.9-51.0); HEMOGLOBIN 11.3 g/dL (13.5-17.0); LYMPHOCYTES % (AUTO) 6.3 % (13-45); MEAN CORPUSCULAR HEMOGLOBIN 27.7 pg (27.0-33.4); MEAN CORPUSCULAR HGB CONC 32.1 g/dL (32.0-36.0); MEAN CORPUSCULAR VOLUME 86 fl (80-97); PLATELET COUNT 197 10^3/uL (150-450); RED BLOOD COUNT 4.06 10^6/uL (4.35-5.55); RED CELL DISTRIBUTION WIDTH 16.6 % (11.5-14.0); SEGMENTED NEUTROPHILS % (AUTO) 82.6 % (42-78); TOTAL CELLS COUNTED % (AUTO) 100 %; WHITE BLOOD COUNT 5.6 10^3/uL (4.0-10.5)
[2019-11-15 14:45] LABS: ALBUMIN 4.1 g/dL (3.5-5.0); ALKALINE PHOSPHATASE 102 U/L (38-126); ANION GAP 11 (5-19); ASPARTATE AMINO TRANSFERASE 19 U/L (17-59); BILIRUBIN,DIRECT 0.2 mg/dL (0.0-0.4); BILIRUBIN,TOTAL 0.7 mg/dL (0.2-1.3); BLOOD UREA NITROGEN 58 mg/dL (7-20); CALCIUM 8.5 mg/dL (8.4-10.2); CARBON DIOXIDE 26 mmol/L (22-30); CHLORIDE 108 mmol/L (98-107); GLUCOSE 97 mg/dL (75-110); POTASSIUM 4.7 mmol/L (3.6-5.0); TOTAL PROTEIN 8.1 g/dL (6.3-8.2)
[2019-11-15] MEDS ORDERED: ACETAMINOPHEN 325 MG TABLET PO PRN (15:02)
[2019-11-15] MEDS ORDERED: ONDANSETRON HCL INJ/PF 4 MG/2 ML SDV IV PRN (15:02)
[2019-11-15] MEDS ORDERED: IPRATROPIUM/ALBUTEROL 0.5-2.5 MG/3 ML AMPUL NEB PRN (15:02)
--- NOTE | 2019-11-15 15:04 | ER Document Report ---
ED General - General Chief Complaint: Abdominal Distention Stated Complaint: ABDOMINAL DISTENSION Time Seen by Provider: 11/15/19 13:29 Primary Care Provider: Nir BROOKS MD [Primary Care Provider] - Follow up as needed Mode of Arrival: Wheelchair Information source: Patient TRAVEL OUTSIDE OF THE [place] IN LAST 30 DAYS: No - HPI Notes: Patient presents with abdominal distention. He states he has had this for many years but is gotten worse over the last week or so. He states his abdomen feels very tight but it is not painful. His symptoms are constant. Nothing makes it better or worse. There is no significant radiation of the symptoms. He describes it as a tightness or fullness. He has had no vomiting no diarrhea. No fevers. No known COVID exposures. He states that he has to have his abdomen "drained" about every 2 years. - Related Data Allergies/Adverse Reactions: No Known Allergies Allergy (Verified 11/15/19 13:28) Home Medications: torsemide..... Past Medical History - General Information source: Patient - Social History Smoking Status: Never Smoker Chew tobacco use (# tins/day): No Frequency of alcohol use: None Drug Abuse: None Family History: Reviewed & Not Pertinent Patient has homicidal ideation: No - Past Medical History Cardiac Medical History: Reports: Hx Congestive Heart Failure, Hx Hypercholesterolemia, Hx Hypertension Pulmonary Medical History: Reports: Hx Sleep Apnea Renal/ Medical History: Denies: Hx Peritoneal Dialysis GI Medical History: Reports: Hx Gastroesophageal Reflux Disease Psychiatric Medical History: Denies: Hx Depression Review of Systems - Review of Systems Constitutional: denies: Chills, Fever Cardiovascular: denies: Chest pain, Palpitations Respiratory: denies: Cough, Short of breath -: Yes All other systems reviewed and negative Physical Exam - Vital signs Vitals: Temp Pulse Resp BP Pulse Ox 98.1 F 85 20 198/98 H 96 11/15/19 13:24 11/15/19 13:24 11/15/19 13:24 11/15/19 13:24 11/15/19 13:24 Interpretation: Hypertensive - General General appearance: Appears well, Alert - HEENT Head: Normocephalic, Atraumatic Eyes: Normal Pupils: PERRL - Respiratory Respiratory status: No respiratory distress Chest status: Nontender Breath sounds: Normal Chest palpation: Normal - Cardiovascular Rhythm: Regular Heart sounds: Normal auscultation Murmur: No - Abdominal Inspection: Morbidly Obese Distension: Distended, Tympanitic Bowel sounds: Hypoactive Tenderness: Nontender - Back Back: Normal, Nontender - Extremities General upper extremity: Normal inspection, Nontender, Normal color, Normal ROM, Normal temperature General lower extremity: Normal inspection, Nontender, Normal color, Normal ROM, Normal temperature, Normal weight bearing. No: Ai's sign - Neurological Neuro grossly intact: Yes Cognition: Normal Orientation: AAOx4 Kendra Coma Scale Eye Opening: Spontaneous [place] Coma Scale Verbal: Oriented [place] Coma Scale Motor: Obeys Commands [place] Coma Scale Total: 15 Speech: Normal Motor strength normal: LUE, RUE, LLE, RLE Sensory: Normal - Psychological Associated symptoms: Normal affect, Normal mood - Skin Skin Temperature: Warm Skin Moisture: Dry Skin Color: Normal Course - Re-evaluation Re-evalutation: 11/15/19 15:39 Patient presents with massive abdominal distention. He appears to have significant ascites and in the past has had up to 26 L drained from his abdomen. He is going to require drainage again obviously. This will have to be done over several different procedural periods. He will require albumin in between. Therefore it seems most prudent to have the patient in the hospital for this procedure. Nephrology and gastroenterology have been consulted. Patient's primary care physician has also been notified. - Vital Signs Vital signs: Temp Pulse Resp BP Pulse Ox 98.1 F 85 20 198/98 H 96 11/15/19 13:29 11/15/19 13:24 11/15/19 13:24 11/15/19 13:24 11/15/19 13:24 - Laboratory Result Diagrams: 11/15/19 14:08 11/15/19 14:08 Laboratory results interpreted by me: 11/15/19 11/15/19 11/15/19 14:08 14:08 15:08 RBC 4.06 L Hgb 11.3 L Hct 35.1 L RDW 16.6 H Lymph % (Auto) 6.3 L Absolute Lymphs (auto) 0.4 L Seg Neutrophils % 82.6 H PT 15.6 H Chloride 108 H BUN 58 H Creatinine 2.93 H Est GFR ( Amer) 27 L Est GFR (MDRD) Non-Af 22 L - Diagnostic Test Radiology reviewed: Image reviewed, Reports reviewed Discharge - Discharge Clinical Impression: Chronic kidney disease (CKD), stage IV (severe), Noncompliance Ascites Qualifiers: Ascites type: other type Qualified Code(s): R18.8 - Other ascites Ascites Qualifiers: Ascites type: other type Qualified Code(s): R18.8 - Other ascites Condition: Serious Disposition: ADMITTED INPATIENT Admitting Provider: [facility] Unit Admitted: [facility]U Referrals: Nir BROOKS MD [Primary Care Provider] - Follow up as needed
[2019-11-15 15:20] LABS: INTERNATIONAL RATION (INR) 1.23; PROTHROMBIN TIME 15.6 SEC (11.4-15.4)
[2019-11-15 17:01] LABS: FLUID COLOR LIGHT YELLOW; FLUID SOURCE ABDOMEN; FLUID TYPE PERITONEAL
[2019-11-15 17:03] LABS: FLUID APPEARANCE CLEAR; FLUID VISCOSITY LIQUID
--- NOTE | 2019-11-15 17:21 | PDOC H&P ---
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 because of the increasing lower abdominal distention's Patient's denied any chest pain no short of breath patient admitting to 2018 remove the several fluid from the abdomen consistence with them non malignancy from the cirrhosis of the liverBut patient is unable to follow-up dr mirza Patients came today's because of increasing the more distentions patient's creatinine is 2.97 At this point decided to admit in the hospital for further paracentesis Past Medical History Cardiac Medical History: Reports: Congestive Heart Failure, Hyperlipidema, Hypertension Pulmonary Medical History: Reports: Sleep Apnea Renal/ Medical History: Reports: Chronic Kidney Disease GI Medical History: Reports: Cirrhosis, Gastroesophageal Reflux Disease Psychiatric Medical History: Denies: Depression Hematology: Reports: Anemia Social History Smoking Status: Never Smoker Electronic Cigarette use?: No Frequency of Alcohol Use: None Hx Recreational Drug Use: No Drugs: None Hx Prescription Drug Abuse: No Family History Family History: Reviewed & Not Pertinent Parental Family History Reviewed: Yes Children Family History Reviewed: Yes Sibling(s) Family History Reviewed.: Yes Medication/Allergy Home Medications: Calcium Acetate [Phoslo 667 mg Capsule] 667 mg PO MEALS 01/22/18 Metoprolol Tartrate [Lopressor 50 mg Tablet] 50 mg PO Q12 01/22/18 Allopurinol [Zyloprim 100 mg Tablet] 100 mg PO DAILY #30 tablet 02/01/18 Cefuroxime Axetil [Ceftin 500 mg Tablet] 1 tab PO BID #14 tablet 02/01/18 Colchicine [Colcrys 0.6 mg Tablet] 0.6 mg PO DAILY #30 tablet 02/01/18 Midodrine HCl [Proamatine 5 mg Tablet] 2.5 mg PO TID #90 tablet 02/01/18 Omeprazole 20 mg PO DAILY #30 tablet. 02/01/18 Torsemide [Demadex 20 mg Tablet] 20 mg PO DAILY #30 tablet 02/01/18 Allergies/Adverse Reactions: No Known Allergies Allergy (Verified 11/15/19 13:28) Review of Systems Constitutional: ABSENT: chills, fever(s), headache(s), weight gain, weight loss Eyes: ABSENT: visual disturbances Ears: ABSENT: hearing changes Cardiovascular: ABSENT: chest pain, dyspnea on exertion, edema, orthropnea, palpitations Respiratory: ABSENT: cough, hemoptysis Gastrointestinal: ABSENT: abdominal pain, constipation, diarrhea, hematemesis, hematochezia, nausea, vomiting Genitourinary: ABSENT: dysuria, hematuria Musculoskeletal: ABSENT: joint swelling Integumentary: ABSENT: rash, wounds Neurological: ABSENT: abnormal gait, abnormal speech, confusion, dizziness, f ocal weakness, syncope Psychiatric: ABSENT: anxiety, depression, homidical ideation, suicidal ideation Endocrine: ABSENT: cold intolerance, heat intolerance, menstrual abnormalities, polydipsia, polyuria Hematologic/Lymphatic: ABSENT: easy bleeding, easy bruising, lymphadenopathy Physical Exam Vital Signs: Temp Pulse Resp BP Pulse Ox 98.1 F 85 20 198/98 H 96 11/15/19 13:29 11/15/19 13:24 11/15/19 13:24 11/15/19 13:24 11/15/19 13:24 Intake & Output 11/14/19 11/15/19 11/16/19 06:59 06:59 06:59 Weight 170.8 kg General appearance: PRESENT: no acute distress, well-developed, well-nourished Head exam: PRESENT: atraumatic, normocephalic Eye exam: PRESENT: conjunctiva pink, EOMI, PERRLA. ABSENT: scleral icterus Ear exam: PRESENT: normal external ear exam Mouth exam: PRESENT: moist, tongue midline Neck exam: PRESENT: full ROM. ABSENT: carotid bruit, JVD, lymphadenopathy, thyromegaly Respiratory exam: PRESENT: decreased breath sounds Cardiovascular exam: PRESENT: RRR. ABSENT: diastolic murmur, rubs, systolic mur mur Vascular exam: PRESENT: normal capillary refill GI/Abdominal exam: PRESENT: ascites, diminished bowel sounds, normal bowel sounds, soft. ABSENT: distended, guarding, mass, organolmegaly, rebound, tenderness Rectal exam: PRESENT: deferred Extremities exam: PRESENT: pedal edema Neurological exam: PRESENT: alert, awake, oriented to person, oriented to place, oriented to time, oriented to situation, CN II-XII grossly intact. ABSENT: motor sensory deficit Psychiatric exam: PRESENT: appropriate affect, normal mood. ABSENT: homicidal ideation, suicidal ideation Skin exam: PRESENT: dry, intact, warm. ABSENT: cyanosis, rash Results Laboratory Results: 11/15/19 14:08 11/15/19 14:08 11/15/19 11/15/19 14:08 14:08 WBC 5.6 RBC 4.06 L Hgb 11.3 L Hct 35.1 L MCV 86 MCH 27.7 MCHC 32.1 RDW 16.6 H Plt Count 197 Seg Neutrophils % 82.6 H Sodium 144.5 Potassium 4.7 Chloride 108 H Carbon Dioxide 26 Anion Gap 11 BUN 58 H Creatinine 2.93 H Est GFR ( Amer) 27 L Glucose 97 Calcium 8.5 Total Bilirubin 0.7 AST 19 Alkaline Phosphatase 102 Total Protein 8.1 Albumin 4.1 Lipase 82.2 Assessment & Plan - Diagnosis (1) Ascites Qualifiers: Ascites type: other type Qualified Code(s): R18.8 - Other ascites Is this a current diagnosis for this admission?: Yes Plan: Most likely has cirrhosis of the liver as per the GI note previously we will give albumin get the PT/INR and Paracentesis order (2) Chronic kidney disease (CKD), stage IV (severe) Is this a current diagnosis for this admission?: Yes Plan: Due to very noncompliance with consulting Dr. Wright for further evaluate (3) Cirrhosis Qualifiers: Ascites presence: with ascites Is this a current diagnosis for this admission?: Yes Plan: We consulted GI for further evaluate (4) Congestive heart failure Qualifiers: Heart failure type: combined systolic and diastolic Heart failure chronicity: chronic Qualified Code(s): I50.42 - Chronic combined systolic (congestive) and diastolic (congestive) heart failure Is this a current diagnosis for this admission?: Yes Plan: Start the patient on her Lasix 20 mg IV every [address] NETTLES to further evaluate (5) Gout Qualifiers: Gout site: unspecified site Presence of tophus: without tophus Is this a current diagnosis for this admission?: Yes Plan: Continues the allopurinol 100 mg p.o. daily (6) Hypertension Qualifiers: Hypertension type: essential hypertension Qualified Code(s): I10 - E ssential (primary) hypertension Is this a current diagnosis for this admission?: Yes Plan: Continues to current medications (7) Sleep apnea syndrome Qualifiers: Sleep apnea type: unspecified type Qualified Code(s): G47.30 - Sleep apnea, unspecified Is this a current diagnosis for this admission?: Yes (8) Protein calorie malnutrition Qualifiers: Protein-calorie malnutrition severity: severe Qualified Code(s): E43 - Unspecified severe protein-calorie malnutrition Is this a current diagnosis for this admission?: Yes Plan: We will start the patient on albumin - Time Time Spent: 50 to 70 Minutes Medications reviewed and adjusted accordingly: Yes Anticipated discharge: Home Within: Other - Inpatient Certification Based on my medical assessment, after consideration of the patient's comorbidities, presenting symptoms, or acuity I expect that the services needed warrant INPATIENT care.: Yes I certify that my determination is in accordance with my understanding of Medicare's requirements for reasonable and necessary INPATIENT services [42 CFR 412.3e].: Yes Medical Necessity: Significant Comorbidiites Make Outpatient Treatment Too Risky, Need Close Monitoring Due to Risk of Patient Decompensation, Need for Surgery Post Hospital 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
[2019-11-15] MEDS: ALBUMIN HUMAN 12.5 GM/50 ML RTUINJ IV SCH ×4 (18:45→23:38)
--- NOTE | 2019-11-15 19:38 | PDOC CONSULTATION ---
Consultation Consult Date: 11/15/19 Provider Consulted: VU REEVES Consult reason:: Cirrhosis, ascites History of Present Illness Admission Date/PCP: 11/15/19 16:21 Nir BROOKS MD History of Present Illness: TONY WOODS is a 59 year old male asked to see this patient by Dr Collazo he has been seen by Dr Krishnan in the past but has not followed up Dr Krishnan saw him in 2018, at that time patient already required large volume paracentesis this time he present with significant ascites requiring another paracentesis Dr Krishnan had planned to do EGD about 2 years ago in the office, do not have r esults as to whether he had varices No increased WBC suggestive of SBP no encephalopathy has chronic renal failure and I am told last cardiac EF % was around 50% Dr Collazo tells me patient does not drink ETOH previous CT scan apparently done showed small nodular liver etiology of cirrhosis unclear but autoimmune studies were in progress 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 repeat CT scan to see if overall patient could be a candidate for TIPS if there is no portal vein thrombosis and if cardiac function can tolerate an increased venous return once TIPS is done Past Medical History Cardiac Medical History: Reports: Congestive Heart Failure, Hyperlipidema, Hypertension Pulmonary Medical History: Reports: Sleep Apnea Renal/ Medical History: Reports: Chronic Kidney Disease GI Medical History: Reports: Cirrhosis, Gastroesophageal Reflux Disease Psychiatric Medical History: Denies: Depression Hematology: Reports: Anemia Social History Smoking Status: Never Smoker Electronic Cigarette use?: No Frequency of Alcohol Use: None Hx Recreational Drug Use: No Drugs: None Hx Prescription Drug Abuse: No Family History Family History: Reviewed & Not Pertinent Parental Family History Reviewed: Yes Children Family History Reviewed: Unknown Sibling(s) Family History Reviewed.: Unknown Medication/Allergy Home Medications: Allopurinol [Zyloprim 100 mg Tablet] 100 mg PO DAILY #30 tablet 02/01/18 Colchicine [Colcrys 0.6 mg Tablet] 0.6 mg PO DAILY #30 tablet 02/01/18 Torsemide [Demadex 20 mg Tablet] 20 mg PO DAILY #30 tablet 02/01/18 Allergies/Adverse Reactions: No Known Allergies Allergy (Verified 11/15/19 13:28) Review of Systems Constitutional: ABSENT: fever(s), headache(s), night sweats Eyes: ABSENT: visual disturbances Ears: ABSENT: hearing changes Nose, Mouth, and Throat: ABSENT: mouth pain Cardiovascular: PRESENT: orthropnea. ABSENT: edema Respiratory: ABSENT: dyspnea, hemoptysis Gastrointestinal: ABSENT: hematemesis, hematochezia, melena, nausea, vomiting Genitourinary: ABSENT: dysuria, hematuria Integumentary: ABSENT: pruritus Neurological: ABSENT: syncope, tingling, tremor(s), vertigo Endocrine: ABSENT: polydipsia, polyphagia, polyuria Hematologic/Lymphatic: ABSENT: easy bruising Physical Exam Vital Signs: Temp Pulse Resp BP Pulse Ox 98.1 F 80 18 167/89 H 93 11/15/19 18:34 11/15/19 18:34 11/15/19 18:34 11/15/19 18:34 11/15/19 18:34 Intake & Output 11/14/19 11/15/19 11/16/19 06:59 06:59 06:59 Weight 170.8 kg General appearance: PRESENT: well-developed, well-nourished Head exam: PRESENT: atraumatic, normocephalic Eye exam: PRESENT: EOMI, PERRLA. ABSENT: nystagmus, scleral icterus Mouth exam: ABSENT: moist, neck supple Neck exam: ABSENT: meningismus, tenderness, thyromegaly Respiratory exam: PRESENT: symmetrical, tachypnea. ABSENT: wheezes Cardiovascular exam: PRESENT: RRR, +S1, +S2 GI/Abdominal exam: PRESENT: normal bowel sounds. ABSENT: Jeter's sign, rebound Extremities exam: PRESENT: +2 edema. ABSENT: joint swelling Musculoskeletal exam: PRESENT: full ROM Neurological exam: PRESENT: alert, awake, CN II-XII grossly intact Skin exam: PRESENT: normal color, pallor. ABSENT: mottled, urticaria, vesicles Results Laboratory Results: 11/15/19 14:08 11/15/19 14:08 11/15/19 11/15/19 11/15/19 14:08 14:08 16:16 WBC 5.6 RBC 4.06 L Hgb 11.3 L Hct 35.1 L MCV 86 MCH 27.7 MCHC 32.1 RDW 16.6 H Plt Count 197 Seg Neutrophils % 82.6 H Sodium 144.5 Potassium 4.7 Chloride 108 H Carbon Dioxide 26 Anion Gap 11 BUN 58 H Creatinine 2.93 H Est GFR ( Amer) 27 L Glucose 97 Calcium 8.5 Total Bilirubin 0.7 AST 19 Alkaline Phosphatase 102 Total Protein 8.1 Albumin 4.1 Lipase 82.2 Fluid Type PERITONEAL Fluid Source ABDOMEN Fluid Color LIGHT YELLOW Fluid Appearance CLEAR Fluid Viscosity LIQUID Fluid WBC 41 Fluid RBC 28 Assessment & Plan - Diagnosis (1) Ascites Qualifiers: Ascites type: other type Qualified Code(s): R18.8 - Other ascites Is this a current diagnosis for this admission?: Yes Plan: likely due to multiple reason would recommend 1. Large volume paracentesis and send for fluid analysis to include SAAG 2) Nephrology to see 3) cardiology consult to see and patient likely need an ECHO 4) following paracentesis , maximize diuretic therapy if able to tolerate and combination of Lasix and possible spiranolactone 5) consideration for possible TIPS 6) CT scan for evaluation of portal vein thrombosis Of note his LFT's are normal on this admission will follow up along but follow up will need to be with Dr Ariella richard d ischarged. - Time Time Spent: 50 to 70 Minutes
[2019-11-15] MEDS: CEFTRIAXONE 1 GM/D5W RTU 1 GM/50 ML RTUPB IV SCH (20:51)
[2019-11-15] MEDS ORDERED: HYDRALAZINE HCL INJ/PF 20 MG/1 ML SDV IV PRN (22:52)
[2019-11-15] MEDS ORDERED: ALBUMIN HUMAN 25.0 GM/100 ML RTUINJ IV ONE (23:23)
[2019-11-15] MEDS: FUROSEMIDE INJ/PF 20 MG/2 ML SDV IV SCH (23:39)
[2019-11-15] MEDS: FAMOTIDINE 20 MG TABLET PO SCH (23:39)
[2019-11-16] MEDS: ALBUMIN HUMAN 12.5 GM/50 ML RTUINJ IV SCH (01:00)
[2019-11-16] MEDS: FUROSEMIDE INJ/PF 20 MG/2 ML SDV IV SCH ×3 (05:35→22:44)
[2019-11-16 06:56] LABS: ABSOLUTE EOSINOPHILS # (AUTO) 0.1 10^3/uL (0.0-0.6); ABSOLUTE LYMPHOCYTES (AUTO) 0.5 10^3/uL (0.5-4.7); ABSOLUTE MONOCYTES (AUTO) 0.7 10^3/uL (0.1-1.4); ABSOLUTE NEUT (AUTO) 4.7 10^3/uL (1.7-8.2); BASOPHILS % (AUTO) 0.8 % (0-2); HEMATOCRIT 34.4 % (37.9-51.0); LYMPHOCYTES % (AUTO) 7.6 % (13-45); MEAN CORPUSCULAR HEMOGLOBIN 27.6 pg (27.0-33.4); MEAN CORPUSCULAR HGB CONC 31.9 g/dL (32.0-36.0); MEAN CORPUSCULAR VOLUME 86 fl (80-97); MONOCYTES % (AUTO) 11.3 % (3-13); PLATELET COUNT 168 10^3/uL (150-450); RED BLOOD COUNT 3.99 10^6/uL (4.35-5.55); SEGMENTED NEUTROPHILS % (AUTO) 78.3 % (42-78); TOTAL CELLS COUNTED % (AUTO) 100 %
[2019-11-16 07:17] LABS: ALBUMIN 3.4 g/dL (3.5-5.0); ALKALINE PHOSPHATASE 77 U/L (38-126); ANION GAP 8 (5-19); ASPARTATE AMINO TRANSFERASE 17 U/L (17-59); BILIRUBIN,DIRECT 0.2 mg/dL (0.0-0.4); BILIRUBIN,TOTAL 0.7 mg/dL (0.2-1.3); BLOOD UREA NITROGEN 57 mg/dL (7-20); CALCIUM 8.2 mg/dL (8.4-10.2); CARBON DIOXIDE 24 mmol/L (22-30); CHLORIDE 110 mmol/L (98-107); GLUCOSE 115 mg/dL (75-110); POTASSIUM 4.7 mmol/L (3.6-5.0); TOTAL PROTEIN 6.9 g/dL (6.3-8.2)
--- NOTE | 2019-11-16 08:02 | RADIOLOGY REPORT (SQ) ---
EXAM DESCRIPTION: U/S ABD PARACENTESIS IMAGES COMPLETED DATE/TIME: 11/15/2019 5:44 pm REASON FOR STUDY: massive ascites COMPARISON: None. RADIATION DOSE: None LIMITATIONS: None. PROCEDURE: The procedure, risks, benefits, and alternatives were discussed with the patient and the patient's family who then gave written consent. The left lower quadrant was then marked utilizing so nographic guidance and a time-out was performed to document correct marking verification. The area around the selected percutaneous access site was then prepped and draped with 2% chlorhexidi ne utilizing standard sterile technique. After that, the selected access site was infiltrated with 5 ml of 1% lidocaine. A 6 [place] Ocjz-Q-Kzpzniua catheter was then introduced into the fluid-filled p eritoneal cavity and the fluid was aspirated. After the fluid was aspirated, the catheter was removed and the entry site was covered with a sterile bandage. No immediate complications were noted. Images acquired during the procedure were submitted to PACS. The patient tolerated the procedure with local anesthesia. At the end of the procedure the patient's condition was unchanged from the preprocedural baseline. Documentation of [id number] time the proceduralist spent monitoring the patient: 15 minutes. FINDINGS: Volume of Fluid: 73050 mL. Quality of the Fluid: Straw colored. Was the fluid collected for analysis? Yes. IMPRESSION: Successful ultrasound-guided paracentesis. COMMENT: Patient medication list reviewed: Yes- Quality ID# [id number]:Eligible professional attests to doc umenting in the medical record they obtained, updated, or reviewed the patient's current medications. TECHNICAL DOCUMENTATION: JOB ID: [id number] 2010 [employer]- All Rights Reserved Reading location - IP/workstation name: [email or web address]
[2019-11-16] MEDS: METOPROLOL TARTRATE 25 MG TABLET PO SCH ×2 (09:19→17:49)
[2019-11-16] MEDS: ALLOPURINOL 100 MG TABLET PO SCH (09:20)
[2019-11-16] MEDS: FAMOTIDINE 20 MG TABLET PO SCH ×2 (09:20→22:45)
--- NOTE | 2019-11-16 09:31 | PDOC PROGRESS REPORT ---
Subjective Progress Note for:: 11/16/19 Subjective:: Patient is feeling better Since have a 10 L of fluid removed yesterday Patient's denied any chest pain no short of breath It is very noncompliance discussed with the patient about her multiple etiology multiple comorbidity patients needs to follow and take the medicines regularly Reason For Visit: ASCITES Physical Exam Vital Signs: Temp Pulse Resp BP Pulse Ox 97.6 F 81 18 151/88 H 94 11/16/19 07:16 11/16/19 07:16 11/16/19 07:16 11/16/19 07:16 11/16/19 07:16 Intake & Output 11/15/19 11/16/19 11/17/19 06:59 06:59 06:59 Intake Total 1500 Output Total 725 Balance 775 Weight 159.2 kg General appearance: PRESENT: no acute distress, well-developed, well-nourished Head exam: PRESENT: atraumatic, normocephalic Eye exam: PRESENT: conjunctiva pink, EOMI, PERRLA. ABSENT: scleral icterus Ear exam: PRESENT: normal external ear exam Mouth exam: PRESENT: moist, tongue midline Neck exam: PRESENT: full ROM. ABSENT: carotid bruit, JVD, lymphadenopathy, thyromegaly Respiratory exam: PRESENT: decreased breath sounds Cardiovascular exam: PRESENT: RRR. ABSENT: diastolic murmur, rubs, systolic murmur Vascular exam: PRESENT: normal capillary refill GI/Abdominal exam: PRESENT: distended, normal bowel sounds, soft. ABSENT: guarding, mass, organolmegaly, rebound, tenderness Rectal exam: PRESENT: deferred Neurological exam: PRESENT: alert, awake, oriented to person, oriented to place, oriented to time, oriented to situation, CN II-XII grossly intact. ABSENT: motor sensory deficit Psychiatric exam: PRESENT: appropriate affect, normal mood. ABSENT: homicidal ideation, suicidal ideation Skin exam: PRESENT: dry, intact, warm. ABSENT: cyanosis, rash Results Laboratory Results: 11/16/19 06:23 11/16/19 06:23 11/15/19 11/15/19 11/15/19 14:08 14:08 16:16 WBC 5.6 RBC 4.06 L Hgb 11.3 L Hct 35.1 L MCV 86 MCH 27.7 MCHC 32.1 RDW 16.6 H Plt Count 197 Seg Neutrophils % 82.6 H Sodium 144.5 Potassium 4.7 Chloride 108 H Carbon Dioxide 26 Anion Gap 11 BUN 58 H Creatinine 2.93 H Est GFR ( Amer) 27 L Glucose 97 Calcium 8.5 Magnesium Total Bilirubin 0.7 AST 19 Alkaline Phosphatase 102 Ammonia Total Protein 8.1 Albumin 4.1 Lipase 82.2 Fluid Type PERITONEAL Fluid Source ABDOMEN Fluid Color LIGHT YELLOW Fluid Appearance CLEAR Fluid Viscosity LIQUID Fluid WBC 41 Fluid RBC 28 11/16/19 11/16/19 11/16/19 06:23 06:23 07:34 WBC 6.0 RBC 3.99 L Hgb 11.0 L Hct 34.4 L MCV 86 MCH 27.6 MCHC 31.9 L RDW 16.0 H Plt Count 168 Seg Neutrophils % 78.3 H Sodium 142.2 Potassium 4.7 Chloride 110 H Carbon Dioxide 24 Anion Gap 8 BUN 57 H Creatinine 2.56 H Est GFR ( Amer) 31 L Glucose 115 H Calcium 8.2 L Magnesium 2.0 Total Bilirubin 0.7 AST 17 Alkaline Phosphatase 77 Ammonia 16.4 Total Protein 6.9 Albumin 3.4 L Lipase Fluid Type Fluid Source Fluid Color Fluid Appearance Fluid Viscosity Fluid WBC Fluid RBC Impressions: Paracentesis Ultrasound 11/15/19 14:00 IMPRESSION: SUCCESSFUL ULTRASOUND GUIDED PARACENTESIS. Assessment & Plan - Diagnosis (1) Ascites Qualifiers: Ascites type: other type Qualified Code(s): R18.8 - Other ascites Is this a current diagnosis for this admission?: Yes Plan: Status post paracentesis most likely from cirrhosis of the liver and protein calorie malnutrition's Patient scheduled for another paracentesis today will give albumin 8 g/L removed fluid (2) Chronic kidney disease (CKD), stage IV (severe) Is this a current diagnosis for this admission?: Yes Plan: Consult Dr. Wright for further evaluate (3) Cirrhosis Qualifiers: Ascites presence: with ascites Is this a current diagnosis for this admission?: Yes Plan: We will get the CT scan of the abdomen and pelvis tomorrow once to remove the more fluid (4) Congestive heart failure Qualifiers: Heart failure type: combined systolic and diastolic Heart failure chronicity: chronic Qualified Code(s): I50.42 - Chronic combined systolic (congestive) and diastolic (congestive) heart failure Is this a current diagnosis for this admission?: Yes Plan: Order the echocardiogram per cardiology (5) Gout Qualifiers: Gout site: unspecified site Presence of tophus: without tophus Is this a current diagnosis for this admission?: Yes Plan: Continues the allopurinol (6) Hypertension Qualifiers: Hypertension type: essential hypertension Qualified Code(s): I10 - Essential (primary) hypertension Is this a current diagnosis for this admission?: Yes Plan: Start the patient on a metoprolol and will consider adding hydralazine (7) Sleep apnea syndrome Qualifiers: Sleep apnea type: unspecified type Qualified Code(s): G47.30 - Sleep apnea, unspecified Is this a current diagnosis for this admission?: Yes (8) Protein calorie malnutrition Qualifiers: Protein-calorie malnutrition severity: severe Qualified Code(s): E43 - Unspecified severe protein-calorie malnutrition Is this a current diagnosis for this admission?: Yes - Time Time Spent with patient: 25-34 minutes Level of Care: IMCU Medications reviewed and adjusted accordingly: Yes Anticipated discharge: Home Within: Other - Plan Summary Plan Summary: Continues to current medications
[2019-11-16] MEDS ORDERED: CEFTRIAXONE 1 GM/D5W RTU 1 GM/50 ML RTUPB IV SCH ×2 (10:00)
[2019-11-16] MEDS ORDERED: ALBUMIN HUMAN 62.5 GM/250 ML RTUINJ IV PRN (13:05)
--- NOTE | 2019-11-16 16:08 | RADIOLOGY REPORT (SQ) ---
EXAM DESCRIPTION: U/S ABD PARACENTESIS IMAGES COMPLETED DATE/TIME: 11/16/2019 3:24 pm REASON FOR STUDY: ascites COMPARISON: Paracentesis 11/15/2019. RADIATION DOSE: None LIMITATIONS: None. PROCEDURE: The procedure, risks, benefits, and alternatives were discussed with the patient and the patient's family who then gave written consent. The right lower quadrant was then marked utilizing s onographic guidance and a time-out was performed to document correct marking verification. The area around the selected percutaneous access site was then prepped and draped with 2% chlorhexidi ne utilizing standard sterile technique. After that, the selected access site was infiltrated with 5 ml of 1% lidocaine. A 6 [place] Nepe-B-Wbcaqwgm catheter was then introduced into the fluid-filled p eritoneal cavity and the fluid was aspirated. After the fluid was aspirated, the catheter was removed and the entry site was covered with a sterile bandage. No immediate complications were noted. Images acquired during the procedure were submitted to PACS. The patient tolerated the procedure with local anesthesia. At the end of the procedure the patient's condition was unchanged from the preprocedural baseline. Documentation of [id number] time the proceduralist spent monitoring the patient: 15 minutes. FINDINGS: Volume of Fluid: 84986 mL. Quality of the Fluid: Straw-colored. Was the fluid collected for analysis? No. IMPRESSION: Successful ultrasound-guided paracentesis. COMMENT: Patient medication list reviewed:Yes- Quality ID# [id number]:Eligible professional attests to docu menting in the medical record they obtained, updated, or reviewed the patient's current medications. TECHNICAL DOCUMENTATION: JOB ID: [id number] 2010 [employer]- All Rights Reserved Reading location - IP/workstation name: [email or web address]
[2019-11-16] MEDS: CEFTRIAXONE 1 GM/D5W RTU 1 GM/50 ML RTUPB IV SCH (17:50)
--- NOTE | 2019-11-16 20:28 | Progress Note ---
Provider Note Provider Note: CARDIOLOGY PROGRESS NOTE by Dr. Nelson has been on 11/16/2019. Lab: SUBJECTIVE: The patient states he feels much better and less tired or short of breath after his 10 L fluid withdrawal from his abdomen by paracentesis. He denies any chest pain or discomfort. He has orthopnea but no PND. There is no arrhythmias seen on the monitor. The patient still has not had his echo done. PHYSICAL EXAMINATION: The patient is morbidly obese. In no acute distress. Selected Entries 11/16/19 11:10 Temperature 97.7 F Temperature Oral Source Pulse Rate 69 Respiratory 16 Rate Blood Pressure 156/94 H Blood Pressure 114 Mean BP Location Right Arm BP Position Supine O2 Sat by Pulse 95 Oximetry Oxygen Delivery Room Air Method HEAD: Is atraumatic normocephalic. EYES: Pupils are equal round regular reactive to light accommodation. Extraocular movements are normal. There is no conjunctival pallor and no scleral icterus. EARS: Tympanic membranes are intact. External auditory canals are clear. NOSE: There is no deviated nasal septum. There is no inflammation nasal mucous membrane. MOUTH: Mucous membranes of mouth are moist. Tongue is moist. There is no ulcers. THROAT: There is no redness of the oropharynx. There is no exudates. SKIN: There is no skin rashes. There is no sherry-care ecchymosis. There is no spider nevi. There is no caput medusa seen. He has chronic venous stasis dermatitis of both lower extremities. NECK: Supple. There is mild JVD present. Carotids are equal there is no bruit there is no lymphadenopathy. There is no goiter. There is no accessory muscles of respiration use. Trachea central. LUNGS: Is clear to auscultation percussion. There is no rhonchi rales or wheezing. HEART: S1-S2 is heard. There is no S3 gallop. There is an S4 gallop the systolic murmur left sternal border and apex there is no rub. ABDOMEN: Is obese and nontender there is no hepatosplenomegaly. Abdomen is distended. There is possible mild ascites. There is no rebound guarding or rigidity. EXTREMITIES: Femorals are deep. Femorals are diminished. Leg pulses difficult to palpate. There is 2- bilateral pedal edema with chronic venous stasis dermatitis. There is no cellulitis. There is no DVT or cellulitis. There is no cyanosis or clubbing. 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 Labs- All tests 24 hr 11/16/19 11/16/19 11/16/19 06:23 06:23 07:34 WBC 6.0 RBC 3.99 L Hgb 11.0 L Hct 34.4 L MCV 86 MCH 27.6 MCHC 31.9 L RDW 16.0 H Plt Count 168 Lymph % (Auto) 7.6 L Owen % (Auto) 11.3 Eos % (Auto) 2.0 Baso % (Auto) 0.8 Absolute Neuts (auto) 4.7 Absolute Lymphs (auto) 0.5 Absolute Monos (auto) 0.7 Absolute Eos (auto) 0.1 Absolute Basos (auto) 0.0 Seg Neutrophils % 78.3 H Sodium 142.2 Potassium 4.7 Chloride 110 H Carbon Dioxide 24 Anion Gap 8 BUN 57 H Creatinine 2.56 H Est GFR ( Amer) 31 L Est GFR (MDRD) Non-Af 26 L Glucose 115 H Calcium 8.2 L Magnesium 2.0 Total Bilirubin 0.7 Direct Bilirubin 0.2 Neonat Total Bilirubin Not Reportable Neonat Direct Bilirubin Not Reportable Neonat Indirect Bili Not Reportable AST 17 ALT 11 Alkaline Phosphatase 77 Ammonia 16.4 Total Protein 6.9 Albumin 3.4 L 11/16/19 12:44 WBC RBC Hgb Hct MCV MCH MCHC RDW Plt Count Lymph % (Auto) Owen % (Auto) Eos % (Auto) Baso % (Auto) Absolute Neuts (auto) Absolute Lymphs (auto) Absolute Monos (auto) Absolute Eos (auto) Absolute Basos (auto) Seg Neutrophils % Sodium Potassium Chloride Carbon Dioxide Anion Gap BUN Creatinine Est GFR ( Amer) Est GFR (MDRD) Non-Af Glucose Calcium Magnesium Total Bilirubin Direct Bilirubin Neonat Total Bilirubin Neonat Direct Bilirubin Neonat Indirect Bili AST ALT Alkaline Phosphatase Ammonia Total Protein Albumin 3.8 Paracentesis Ultrasound 11/15/19 14:00 IMPRESSION: Successful ultrasound-guided paracentesis. Paracentesis Ultrasound 11/16/19 00:00 IMPRESSION: Successful ultrasound-guided paracentesis. IMPRESSION/RECOMMENDATION: 1. Ascites: Status post paracentesis. Secondary to portal hypertension due to cirrhosis. 2. Cirrhosis of the liver. The etiology of this is unclear. Doubt cardiogenic etiology of cirrhosis. Note in the past the patient's collagen vascular And autoimmune hepatitis work-up of all been negative. Also he has been negative for any viral hepatitis infection. Would recommend stopping the patient's metoprolol and starting the patient on Corgard 20 mg p.o. daily. 3. Most likely acute on chronic diastolic heart failure left heart failure. At present seems to be stable compensated. Would recommend checking an echo since although in 2018 his LV ejection fraction was normal. He was reported to have mildly reduced LV ejection fraction in the past. 4. Right heart failure secondary to most likely pulmonary hypertension. 5. Pulmonary hypertension: Most likely there is progression of pulmonary hypertension. Will await echo. Will need to make sure the patient does not have chronic pulmonary emboli. Will order a ventilation/perfusion scan to be done tomorrow. 6. Hypertension. Will add amlodipine. This will not only control his blood pressure but also will help the patient's pulmonary hypertension. Would make sure the leg swelling does not become worse with amlodipine. 7. Chronic kidney disease stage III: Avoid nephrotoxic drugs 8.. Obstructive sleep apnea. I am not very sure if the patient is compliant with CPAP. Will place the patient on BiPAP empirically in the hospital 9.. Morbid obesity Medications reviewed. Medications added. Medical decision making is of high complexity. 40 minutes spent with patient more than 50% of time spent in direct patient care. Will follow the case the medical regimen and management plan has been discussed in entirety with Dr. Collazo. Discussed with the patient also. Will follow
[2019-11-16] MEDS: AMLODIPINE BESYLATE 5 MG TABLET PO SCH (22:45)
[2019-11-17] MEDS: FUROSEMIDE INJ/PF 20 MG/2 ML SDV IV SCH (06:32)
[2019-11-17 06:55] LABS: ABSOLUTE BASOPHILS # (AUTO) 0.1 10^3/uL (0.0-0.2); ABSOLUTE EOSINOPHILS # (AUTO) 0.1 10^3/uL (0.0-0.6); ABSOLUTE LYMPHOCYTES (AUTO) 0.5 10^3/uL (0.5-4.7); ABSOLUTE MONOCYTES (AUTO) 0.7 10^3/uL (0.1-1.4); ABSOLUTE NEUT (AUTO) 4.6 10^3/uL (1.7-8.2); BASOPHILS % (AUTO) 1.3 % (0-2); EOSINOPHILS % (AUTO) 1.8 % (0-6); HEMATOCRIT 32.3 % (37.9-51.0); HEMOGLOBIN 10.5 g/dL (13.5-17.0); LYMPHOCYTES % (AUTO) 8.9 % (13-45); MEAN CORPUSCULAR HEMOGLOBIN 27.8 pg (27.0-33.4); MEAN CORPUSCULAR HGB CONC 32.5 g/dL (32.0-36.0); MEAN CORPUSCULAR VOLUME 85 fl (80-97); MONOCYTES % (AUTO) 11.3 % (3-13); PLATELET COUNT 164 10^3/uL (150-450); RED BLOOD COUNT 3.79 10^6/uL (4.35-5.55); RED CELL DISTRIBUTION WIDTH 16.5 % (11.5-14.0); SEGMENTED NEUTROPHILS % (AUTO) 76.7 % (42-78); TOTAL CELLS COUNTED % (AUTO) 100 %; WHITE BLOOD COUNT 5.9 10^3/uL (4.0-10.5)
[2019-11-17 07:21] LABS: ANION GAP 7 (5-19); BLOOD UREA NITROGEN 55 mg/dL (7-20); CALCIUM 7.9 mg/dL (8.4-10.2); CARBON DIOXIDE 25 mmol/L (22-30); CHLORIDE 109 mmol/L (98-107); GLUCOSE 111 mg/dL (75-110); POTASSIUM 4.6 mmol/L (3.6-5.0)
--- NOTE | 2019-11-17 10:14 | PDOC PROGRESS REPORT ---
Subjective Progress Note for:: 11/17/19 Subjective:: Patient is currently doing much better also remove the 10 L of fluid yesterday total 20 L Is denied any abdominal pain no chest pain no short of breath Reason For Visit: ASCITES Physical Exam Vital Signs: Temp Pulse Resp BP Pulse Ox 98.2 F 76 18 156/81 H 89 L 11/17/19 08:59 11/17/19 08:59 11/17/19 08:59 11/17/19 08:59 11/17/19 08:59 Intake & Output 11/16/19 11/17/19 11/18/19 06:59 06:59 06:59 Intake Total 1500 1577 Output Total 725 2425 Balance 775 -848 Weight 159.2 kg 151.9 kg General appearance: PRESENT: no acute distress, well-developed, well-nourished Head exam: PRESENT: atraumatic, normocephalic Eye exam: PRESENT: conjunctiva pink, EOMI, PERRLA. ABSENT: scleral icterus Ear exam: PRESENT: normal external ear exam Mouth exam: PRESENT: moist, tongue midline Neck exam: PRESENT: full ROM. ABSENT: carotid bruit, JVD, lymphadenopathy, thyromegaly Respiratory exam: PRESENT: clear to auscultation darline Cardiovascular exam: PRESENT: RRR. ABSENT: diastolic murmur, rubs, systolic murmur Pulses: PRESENT: normal dorsalis pedis pul, +2 pedal pulses bilateral Vascular exam: PRESENT: normal capillary refill GI/Abdominal exam: PRESENT: distended, normal bowel sounds, soft. ABSENT: guarding, mass, organolmegaly, rebound, tenderness Rectal exam: PRESENT: deferred Neurological exam: PRESENT: alert, awake, oriented to person, oriented to place, oriented to time, oriented to situation, CN II-XII grossly intact. ABSENT: motor sensory deficit Psychiatric exam: PRESENT: appropriate affect, normal mood. ABSENT: homicidal ideation, suicidal ideation Skin exam: PRESENT: dry, intact, warm. ABSENT: cyanosis, rash Results Laboratory Results: 11/17/19 05:42 11/17/19 05:42 11/16/19 11/17/19 11/17/19 12:44 05:42 05:42 WBC 5.9 RBC 3.79 L Hgb 10.5 L Hct 32.3 L MCV 85 MCH 27.8 MCHC 32.5 RDW 16.5 H Plt Count 164 Seg Neutrophils % 76.7 Sodium 140.9 Potassium 4.6 Chloride 109 H Carbon Dioxide 25 Anion Gap 7 BUN 55 H Creatinine 2.41 H Est GFR ( Amer) 34 L Glucose 111 H Calcium 7.9 L Magnesium 2.0 Albumin 3.8 Impressions: Paracentesis Ultrasound 11/16/19 00:00 IMPRESSION: Successful ultrasound-guided paracentesis. Assessment & Plan - Diagnosis (1) Ascites Qualifiers: Ascites type: other type Qualified Code(s): R18.8 - Other ascites Is this a current diagnosis for this admission?: Yes Plan: Status post paracentesis most likely from cirrhosis of the liver and protein calorie malnutrition's Patient scheduled for another paracentesis today will give albumin 8 g/L removed fluid (2) Chronic kidney disease (CKD), stage IV (severe) Is this a current diagnosis for this admission?: Yes Plan: Consult Dr. Wright for further evaluate (3) Cirrhosis Qualifiers: Ascites presence: with ascites Is this a current diagnosis for this admission?: Yes Plan: We will get the CT scan of the abdomen and pelvis tomorrow once to remove the more fluid (4) Congestive heart failure Qualifiers: Heart failure type: combined systolic and diastolic Heart failure chronicity: chronic Qualified Code(s): I50.42 - Chronic combined systolic (congestive) and diastolic (congestive) heart failure Is this a current diagnosis for this admission?: Yes Plan: Order the echocardiogram per cardiology (5) Gout Qualifiers: Gout site: unspecified site Presence of tophus: without tophus Is this a current diagnosis for this admission?: Yes Plan: Continues the allopurinol (6) Hypertension Qualifiers: Hypertension type: essential hypertension Qualified Code(s): I10 - Ess ential (primary) hypertension Is this a current diagnosis for this admission?: Yes Plan: Start the patient on a metoprolol and will consider adding hydralazine (7) Sleep apnea syndrome Qualifiers: Sleep apnea type: unspecified type Qualified Code(s): G47.30 - Sleep apnea, unspecified Is this a current diagnosis for this admission?: Yes (8) Protein calorie malnutrition Qualifiers: Protein-calorie malnutrition severity: severe Qualified Code(s): E43 - Unspecified severe protein-calorie malnutrition Is this a current diagnosis for this admission?: Yes - Time Time Spent with patient: 15-24 minutes Level of Care: IMCU Medications reviewed and adjusted accordingly: Yes Anticipated discharge: Other Within: Other - Plan Summary Plan Summary: Continues IV Lasix patient's will last again see with her patients get another more benefit to remove the fluid or not will get the CT scan of the abdomen pelvis for a cystoscopy cirrhosis of the liver
[2019-11-17] MEDS: NADOLOL 40 MG TABLET PO SCH (10:17)
[2019-11-17] MEDS: AMLODIPINE BESYLATE 5 MG TABLET PO SCH ×2 (10:17→21:22)
[2019-11-17] MEDS: ALLOPURINOL 100 MG TABLET PO SCH (10:17)
[2019-11-17] MEDS: FAMOTIDINE 20 MG TABLET PO SCH ×2 (10:17→21:22)
--- NOTE | 2019-11-17 12:23 | RADIOLOGY REPORT (SQ) ---
EXAM DESCRIPTION: NM LUNG PERFUSION SCAN IMAGES COMPLETED DATE/TIME: 11/17/2019 11:29 am REASON FOR STUDY: SOB, CP COMPARISON: None. RADIONUCLIDE AND DOSE: 3.13 millicuries TC-99m MAA The route of agent administration: Intravenous TECHNIQUE: Eight views of the lungs acquired following injection of MAA. LIMITATIONS: None. FINDINGS: PERFUSION: Perfusion images with normal homogenous activity and no wedge-shaped or segment al defects. OTHER: No other significant finding. IMPRESSION: NORMAL PERFUSION LUNG SCAN. TECHNICAL DOCUMENTATION: JOB ID: [id number] 2010 [email or web address]- All Rights Reserved Reading location - IP/workstation name: [email or web address]
--- NOTE | 2019-11-17 12:27 | RADIOLOGY REPORT (SQ) ---
EXAM DESCRIPTION: CHEST SINGLE VIEW IMAGES COMPLETED DATE/TIME: 11/17/2019 11:33 am REASON FOR STUDY: PULM HTN, BILAT LEG EDEMA COMPARISON: c 01/22/2018 EXAM PARAMETERS: NUMBER OF VIEWS: One view. TECHNIQUE: Single frontal radiographic view of the chest acquired. RADIATION DOSE: NA LIMITATIONS: None. FINDINGS: LUNGS AND PLEURA: No opacities, masses or pneumothorax. No pleural effusion. MEDIASTINUM AND HILAR STRUCTURES: No masses. Contour normal. HEART AND VASCULAR STRUCTURES: Cardiomegaly. No pulmonary edema. BONES: No acute findings. HARDWARE: None in the chest. OTHER: No other significant finding. IMPRESSION: Cardiomegaly without pulmonary edema. TECHNICAL DOCUMENTATION: JOB ID: [id number] 2010 [employer]- All Rights Reserved Reading location - IP/workstation name: [email or web address]
--- NOTE | 2019-11-17 13:23 | RADIOLOGY REPORT (SQ) ---
EXAM DESCRIPTION: U/S ABD PARACENTESIS IMAGES COMPLETED DATE/TIME: 11/17/2019 1:07 pm REASON FOR STUDY: ascites COMPARISON: Paracentesis 11/16/2019. RADIATION DOSE: None LIMITATIONS: None. PROCEDURE: Procedure, risks, benefit, and alternative explained to patient who then gave written con sent. The left lower abdominal wall marked using ultrasound guidance. A time-out was called for cor rect marking verification. Abdomen prepped and draped using sterile technique. Local anesthesia achi eved using 10 ml of 1% lidocaine injection. A 6fr Gutn-E-Vuzibbvo set was introduced into the perito jennifer cavity. Fluid was drained. The catheter was removed and entry site was covered with sterile ba ndage. No immediate complications noted. Images acquired during the procedure were stored on PACS. FINDINGS: ENTRY SITE: left lower quadrant. FLUID VOLUME: 10 L FLUID ANALYSIS: Serous sanguinous fluid OTHER: Therapeutic only. IMPRESSION: SUCCESSFUL ULTRASOUND GUIDED PARACENTESIS. COMMENT: Patient medication list reviewed:Yes- Quality ID# [id number]:Eligible professional attests to docu menting in the medical record they obtained, updated, or reviewed the patient's current medications. TECHNICAL DOCUMENTATION: JOB ID: [id number] 2010 [employer]- All Rights Reserved Reading location - IP/workstation name: [email or web address] [id number]
--- NOTE | 2019-11-17 13:34 | RADIOLOGY REPORT (SQ) ---
EXAM DESCRIPTION: CT ABD/PELVIS NO ORAL OR IV IMAGES COMPLETED DATE/TIME: 11/17/2019 1:03 pm REASON FOR STUDY: Cirrhosis of liver /ascites COMPARISON: 01/22/2018 TECHNIQUE: CT scan of the abdomen and pelvis performed without intravenous or oral contrast. Images reviewed with lung, soft tissue, and bone windows. Reconstructed coronal and sagittal MPR images revi ewed. All images stored on PACS. All CT scanners at this facility use dose modulation, iterative reconstruction, and/or weight based d osing when appropriate to reduce radiation dose to as low as reasonably achievable (ALARA). [facility]: Dose Right [facility]: CareDose [facility]: Dose Right [facility]: Teradose 4D [facility]: [employer] RADIATION DOSE: CT Rad equipment meets quality standard of care and radiation dose reduction techniq ues were employed. CTDIvol: 28.7 mGy. DLP: 1631 mGy-cm.mGy. LIMITATIONS: None. FINDINGS: LOWER CHEST: Small bilateral pleural effusions. NON-CONTRASTED LIVER, SPLEEN, ADRENALS: Evaluation limited by lack of IV contrast. No identified sign ificant masses. PANCREAS: No masses. No peripancreatic inflammatory changes. GALLBLADDER: Multiple small gallstones RIGHT KIDNEY AND URETER: No suspicious masses. Assessment limited by lack of IV contrast. There are some small vascular calcifications. No hydronephrosis or hydroureter. LEFT KIDNEY AND URETER: No suspicious masses. Assessment limited by lack of IV contrast. There are some small vascular calcifications. No hydronephrosis or hydroureter. AORTA AND RETROPERITONEUM: No aneurysm. No retroperitoneal masses or adenopathy. BOWEL AND PERITONEAL CAVITY: There is mild ascites. No obvious bowel mass or inflammation. APPENDIX: Not identified. PELVIS, BLADDER, AND ABDOMINAL WALL:Bladder is normal. No pelvic mass. Small amount of free fluid. There is extensive subcutaneous edema. Intra- abdominal edema mesenteric edema. BONES: No significant findings. OTHER: No other significant finding. IMPRESSION: Hepatic cirrhosis by history. Extensive edema. Mild ascites. Cholelithiasis. Small p leural effusions. COMMENT: Quality ID # [id number]: Final reports with documentation of one or more dose reduction techniques (e.g., Automated exposure control, adjustment of the mA and/or kV according to patient size, use of iterative reconstruction technique) TECHNICAL DOCUMENTATION: JOB ID: [id number] 2010 [employer]- All Rights Reserved Reading location - IP/workstation name: [email or web address]
--- NOTE | 2019-11-17 17:33 | XCELERA REPORT ---
[address] [address] Transthoracic Echocardiogram Report Name: TONY WOODS Age: 59 yrs Gender: Male : 1960 Patient Status: Inpatient Patient Location: [address] [place] [address] Study Date: 11/17/2019 09:04 AM Height: 69 in Weight: 350 lb BSA: 2.6 m2 Procedure: A two-dimensional transthoracic echocardiogram with color flow and Doppler was performed. The study was technically limited with all images being suboptimal in quality. Reason For Study: CHF History: CHF. Ordering Physician: SHERIE PACK Performed By: Melissa Davis Interpretation Summary The left ventricle is normal in size. There is mild concentric left ventricular hypertrophy. LV EF is 55% Left ventricular systolic function is low normal. Doppler measurements suggest impaired left ventricular relaxation, which is associated with grade I/IV or mild diastolic dysfunction The left ventricular wall motion is normal. There is no thrombus. No ASD ,VSD ,or PFO seen. The right ventricle is not well visualized secondary to technical limitations Right atrium not well visualized secondary to technical limitations The left atrium is mildly dilated. There is no evidence of mitral valve prolapse. There is no vegetation seen on the mitral valve. There is no mitral valve stenosis. There is a trace amount of mitral regurgitation There is no aortic valvular vegetation. There is no aortic valve stenosis There is no LVOT obstruction. No aortic regurgitation is present. There is no tricuspid stenosis. There is a trace to mild amount of tricuspid regurgitation There is moderate to severe pulmonary hypertension by echo RVSP is 56 to 61 mm of Hg , with RA mean of 15 to 20. There is no pulmonic valvular stenosis. There is a trace amount of pulmonic regurgitation The aortic root is normal size. The inferior vena cava appeared dilated and decreased < 50% with respiration (RAP 15-20 mmHg) There is no pericardial effusion. MMode/2D Measurements & Calculations RVDd: 2.8 cm LVIDd: 5.5 cm FS: 27.0 % Ao root diam: 3.2 cm IVSd: 1.2 cm LVIDs: 4.0 cm EDV(Teich): 147.2 ml Ao root area: 7.8 cm2 LVPWd: 1.2 cm ESV(Teich): 70.6 ml LA dimension: 4.4 cm EF(Teich): 52.0 % Doppler Measurements & Calculations MV E max vasyl: MV P1/2t max vasyl: Ao V2 max: LV V1 max P.9 cm/sec 117.3 cm/sec 129.9 cm/sec 5.0 mmHg MV A max vasyl: MV P1/2t: 65.8 msec Ao max PG: LV V1 max: 108.7 cm/sec MVA(P1/2t): 3.3 cm2 6.8 mmHg 111.3 cm/sec MV E/A: 0.93 MV dec slope: 522.3 cm/sec2 MV dec time: 0.21 sec PA V2 max: PI end-d vasyl: TR max avsyl: MV P1/2t-pr_phl: 69.6 cm/sec 55.6 cm/sec 319.3 cm/sec 65.8 msec PA max P.9 mmHg TR max P.8 mmHg Left Ventricle The left ventricle is normal in size. There is mild concentric left ventricular hypertrophy. LV EF is 55%. Left ventricular systolic function is low normal. Doppler measurements suggest impaired left ventricular relaxation, which is associated with grade I/IV or mild diastolic dysfunction. The left ventricular wall motion is normal. There is no thrombus. No ASD ,VSD ,or PFO seen. Right Ventricle The right ventricle is not well visualized secondary to technical limitations. Atria Right atrium not well visualized secondary to technical limitations. The left atrium is mildly dilated. Mitral Valve There is no evidence of mitral valve prolapse. There is no vegetation seen on the mitral valve. There is no mitral valve stenosis. There is a trace amount of mitral regurgitation. Aortic Valve There is no aortic valvular vegetation. There is no aortic valve stenosis. There is no LVOT obstruction. No aortic regurgitation is present. Tricuspid Valve There is no tricuspid stenosis. There is a trace to mild amount of tricuspid regurgitation. There is moderate to severe pulmonary hypertension by echo. RVSP is 56 to 61 mm of Hg , with RA mean of 15 to 20. Pulmonic Valve There is no pulmonic valvular stenosis. There is a trace amount of pulmonic regurgitation. Great Vessels The aortic root is normal size. The inferior vena cava appeared dilated and decreased < 50% with respiration (RAP 15-20 mmHg). Effusions There is no pericardial effusion. : SHERIE PACK Lakshmi
--- NOTE | 2019-11-17 17:35 | Progress Note ---
Provider Note Provider Note: CARDIOLOGY PROGRESS NOTE by Dr. Sherie Watson on 11/17/2019. OBJECTIVE: The patient denies any chest pain or discomfort.. He is tolerating nadolol and amlodipine. He denies any shortness of breath. In view of the patient's increased abdominal girth it is very difficult to see if the patient has reaccumulation of ascites. But he states he feels fine. His leg edema is chronically mild. There is no increase in this. There is no arrhythmias seen on the monitor. The patient did have an echo done. He denies any chest pain or discomfort. There is no PND orthopnea. The patient's echocardiogram shows moderate to severe pulmonary hypertension as suspected. His LV ejection fraction is low normal. The patient's ventilation perfusion scan [only perfusion scan was done due to the COVID pandemic] was normal and there is no evidence of pulmonary emboli. PHYSICAL EXAMINATION: The patient is morbidly obese. In no acute distress. Selected Entries 11/17/19 16:40 Temperature 97.9 F Temperature Oral Source Pulse Rate 59 L Respiratory 18 Rate Blood Pressure 147/76 H Blood Pressure 99 Mean BP Location Right Arm BP Position Supine O2 Sat by Pulse 95 Oximetry Oxygen Flow 1 Rate Oxygen Delivery Nasal Cannula Method HEAD: Is atraumatic normocephalic. EYES: Pupils are equal round regular reactive to light accommodation. Extraocular movements are normal. There is no conjunctival pallor and no scleral icterus. EARS: Tympanic membranes are intac t. External auditory canals are clear. NOSE: There is no deviated nasal septum. There is no inflammation nasal mucous membrane. MOUTH: Mucous membranes of mouth are moist. Tongue is moist. There is no ulcers. THROAT: There is no redness of the oropharynx. There is no exudates. SKIN: There is no skin rashes. There is no sherry-care ecchymosis. There is no spider nevi. There is no caput medusa seen. He has chronic venous stasis dermatitis of both lower extremities. NECK: Supple. There is mild JVD present. Carotids are equal there is no bruit there is no lymphadenopathy. There is no goiter. There is no accessory muscles of respiration use. Trachea central. LUNGS: Is clear to auscultation percussion. There is no rhonchi rales or wheezing. HEART: S1-S2 is heard. There is no S3 gallop. There is an S4 gallop the systolic murmur left sternal border and apex there is no rub. ABDOMEN: Is obese and nontender there is no hepatosplenomegaly. Abdomen is distended. There is possible mild ascites. There is no rebound guarding or rigidity. EXTREMITIES: Femorals are deep. Femorals are diminished. Leg pulses difficult to palpate. There is 2- bilateral pedal edema with chronic venous stasis dermatitis. There is no cellulitis. There is no DVT or cellulitis. There is no cyanosis or clubbing. [employer]BER: The patient is conscious awake alert oriented x3 with no focal deficit s.Psychiatric: The patient judgment insight are intact his affect is normal. ECHOCARDIOGRAM: The left ventricle is normal in size. There is mild concentric left ventricular hypertrophy. LV EF is 55% Left ventricular systolic function is low normal. Doppler measurements suggest impaired left ventricular relaxation, which is associated with grade I/IV or mild diastolic dysfunction The left ventricular wall motion is normal. There is no thrombus. No ASD ,VSD ,or PFO seen. The right ventricle is not well visualized secondary to technical limitations Right atrium not well visualized secondary to technical limitations The left atrium is mildly dilated. There is no evidence of mitral valve prolapse. There is no vegetation seen on the mitral valve. There is no mitral valve stenosis. There is a trace amount of mitral regurgitation There is no aortic valvular vegetation. There is no aortic valve stenosis There is no LVOT obstruction. No aortic regurgitation is present. There is no tricuspid stenosis. There is a trace to mild amount of tricuspid regurgitation There is moderate to severe pulmonary hypertension by echo RVSP is 56 to 61 mm of Hg , with RA mean of 15 to 20. There is no pulmonic valvular stenosis. There is a trace amount of pulmonic regurgitation The aortic root is normal size. The inferior vena cava appeared dilated and decreased < 50% with respiration (RAP 15-20 mmHg) There is no pericardial effusion. Paracentesis Ultrasound 11/15/19 14:00 IMPRESSION: Successful ultrasound-guided paracentesis. Paracentesis Ultrasound 11/16/19 00:00 IMPRESSION: Successful ultrasound-guided paracentesis. Abdomen/Pelvis CT 11/17/19 00:00 IMPRESSION: Hepatic cirrhosis by history. Extensive edema. Mild ascites. Cholelithiasis. Small pleural effusions. Chest X-Ray 11/17/19 00:00 IMPRESSION: Cardiomegaly without pulmonary edema. Paracentesis Ultrasound 11/17/19 00:00 IMPRESSION: SUCCESSFUL ULTRASOUND GUIDED PARACENTESIS. Lung Scan-VQ NM 11/17/19 07:00 IMPRESSION: NORMAL PERFUSION LUNG SCAN. Labs- All tests 24 hr 11/15/19 11/15/19 11/15/19 16:16 16:16 16:16 WBC RBC Hgb Hct MCV MCH MCHC RDW Plt Count Lymph % (Auto) Schley % (Auto) Eos % (Auto) Baso % (Auto) Absolute Neuts (auto) Absolute Lymphs (auto) Absolute Monos (auto) Absolute Eos (auto) Absolute Basos (auto) Seg Neutrophils % Sodium Potassium Chloride Carbon Dioxide Anion Gap BUN Creatinine Est GFR ( Amer) Est GFR (MDRD) Non-Af Glucose Calcium Magnesium Fluid pH Fluid Glucose 116 Fluid Albumin 2.4 Fluid LDH 77 11/15/19 11/17/19 11/17/19 16:16 05:42 05:42 WBC 5.9 RBC 3.79 L Hgb 10.5 L Hct 32.3 L MCV 85 MCH 27.8 MCHC 32.5 RDW 16.5 H Plt Count 164 Lymph % (Auto) 8.9 L Schley % (Auto) 11.3 Eos % (Auto) 1.8 Baso % (Auto) 1.3 Absolute Neuts (auto) 4.6 Absolute Lymphs (auto) 0.5 Absolute Monos (auto) 0.7 Absolute Eos (auto) 0.1 Absolute Basos (auto) 0.1 Seg Neutrophils % 76.7 Sodium 140.9 Potassium 4.6 Chloride 109 H Carbon Dioxide 25 Anion Gap 7 BUN 55 H Creatinine 2.41 H Est GFR ( Amer) 34 L Est GFR (MDRD) Non-Af 28 L Glucose 111 H Calcium 7.9 L Magnesium 2.0 Fluid pH 8.0 Fluid Glucose Fluid Albumin Fluid LDH * EKG:SINUS RHYTHM [LVOLT] . LOW VOLTAGE THROUGHOUT [AMI8] . CONSIDER ANTEROSEPTAL INFARCT [T1LA] . NONSPECIFIC T ABNORMALITIES, LATERAL LEADS IMPRESSION/RECOMMENDATION: 1. Ascites: Status post paracentesis. Secondary to portal hypertension due to cirrhosis. 2. Cirrhosis of the liver. The etiology of this is unclear. Most likely secondary to significant pulmonary hypertension.. Note in the past the patient's collagen vascular And autoimmune hepatitis work-up of all been negative. Also he has been negative for any viral hepatitis infection. Would continue the patient on Corgard 20 mg p.o. daily. 3. Most likely acute on chronic diastolic heart failure left heart failure. And right ventricular systolic heart failure 4. Right heart failure secondary pulmonary hypertension. 5. Pulmonary hypertension: There is no evidence of pulmonary emboli. Echo shows moderate to severe pulmonary hypertension. Continue amlodipine. We will start the patient on hydralazine also. 6. Hypertension. Will add amlodipine. 7. Chronic kidney disease stage III: Avoid nephrotoxic drugs 8.. Abnormal EKG: Later would recommend the patient have IV Lexiscan Cardiolite stress test done. This can be done as an outpatient. Obstructive sleep apnea. I am not very sure if the patient is compliant with CPAP. Will place the patient on BiPAP empirically in the hospital 9.. Morbid obesity Medications reviewed. Medications added. Medical decision making is of high complexity. 40 minutes spent with patient more than 50% of time spent in direct patient care. Will follow the case the medical regimen and management plan has been discussed in entirety with Dr. Collazo. Discussed with the patient also. Will follow The left ventricle is normal in size. There is mild concentric left ventricular hypertrophy. LV EF is 55% Left ventricular systolic function is low normal. Doppler measurements suggest impaired left ventricular relaxation, which is associated with grade I/IV or mild diastolic dysfunction The left ventricular wall motion is normal. There is no thrombus. No ASD ,VSD ,or PFO seen. The right ventricle is not well visualized secondary to technical limitations Right atrium not well visualized secondary to technical limitations The left atrium is mildly dilated. There is no evidence of mitral valve prolapse. There is no vegetation seen on the mitral valve. There is no mitral valve stenosis. There is a trace amount of mitral regurgitation There is no aortic valvular vegetation. There is no aortic valve stenosis There is no LVOT obstruction. No aortic regurgitation is present. There is no tricuspid stenosis. There is a trace to mild amount of tricuspid regurgitation There is moderate to severe pulmonary hypertension by echo RVSP is 56 to 61 mm of Hg , with RA mean of 15 to 20. There is no pulmonic valvular stenosis. There is a trace amount of pulmonic regurgitation The aortic root is normal size. The inferior vena cava appeared dilated and decreased < 50% with respiration (RAP 15-20 mmHg) There is no pericardial effusion.
[2019-11-17] MEDS: FUROSEMIDE 20 MG TABLET PO SCH (18:31)
[2019-11-17] MEDS: CEFTRIAXONE 1 GM/D5W RTU 1 GM/50 ML RTUPB IV SCH (18:31)
--- NOTE | 2019-11-17 18:57 | EKG REPORT ---
SEVERITY:- ABNORMAL ECG - SINUS RHYTHM LOW VOLTAGE THROUGHOUT CONSIDER ANTEROSEPTAL INFARCT NONSPECIFIC T ABNORMALITIES, LATERAL LEADS : Confirmed by: Harvinder Pereira MD 17-Nov-2019 18:56:29
[2019-11-17] MEDS: ALBUMIN HUMAN 12.5 GM/50 ML RTUINJ IV SCH ×2 (21:22→22:23)
[2019-11-18 05:39] LABS: ABSOLUTE BASOPHILS # (AUTO) 0.1 10^3/uL (0.0-0.2); ABSOLUTE EOSINOPHILS # (AUTO) 0.1 10^3/uL (0.0-0.6); ABSOLUTE LYMPHOCYTES (AUTO) 0.7 10^3/uL (0.5-4.7); ABSOLUTE MONOCYTES (AUTO) 0.6 10^3/uL (0.1-1.4); ABSOLUTE NEUT (AUTO) 4.1 10^3/uL (1.7-8.2); BASOPHILS % (AUTO) 1.2 % (0-2); EOSINOPHILS % (AUTO) 1.6 % (0-6); HEMATOCRIT 31.7 % (37.9-51.0); HEMOGLOBIN 10.3 g/dL (13.5-17.0); LYMPHOCYTES % (AUTO) 12.1 % (13-45); MEAN CORPUSCULAR HEMOGLOBIN 27.8 pg (27.0-33.4); MEAN CORPUSCULAR HGB CONC 32.4 g/dL (32.0-36.0); MEAN CORPUSCULAR VOLUME 86 fl (80-97); MONOCYTES % (AUTO) 11.4 % (3-13); PLATELET COUNT 151 10^3/uL (150-450); RED CELL DISTRIBUTION WIDTH 16.7 % (11.5-14.0); SEGMENTED NEUTROPHILS % (AUTO) 73.7 % (42-78); TOTAL CELLS COUNTED % (AUTO) 100 %; WHITE BLOOD COUNT 5.6 10^3/uL (4.0-10.5)
[2019-11-18 05:57] LABS: ANION GAP 6 (5-19); BLOOD UREA NITROGEN 55 mg/dL (7-20); CALCIUM 7.6 mg/dL (8.4-10.2); CARBON DIOXIDE 25 mmol/L (22-30); CHLORIDE 108 mmol/L (98-107); GLUCOSE 136 mg/dL (75-110); POTASSIUM 4.6 mmol/L (3.6-5.0)
[2019-11-18] MEDS ORDERED: HYDRALAZINE HCL 25 MG TABLET PO SCH (06:00)
[2019-11-18 08:32] VITALS: BP 141/61
[2019-11-18] MEDS: NADOLOL 40 MG TABLET PO SCH (09:28)
[2019-11-18] MEDS: AMLODIPINE BESYLATE 5 MG TABLET PO SCH (09:29)
[2019-11-18] MEDS: ALLOPURINOL 100 MG TABLET PO SCH (09:29)
[2019-11-18] MEDS: FAMOTIDINE 20 MG TABLET PO SCH (09:29)
[2019-11-18] MEDS: FUROSEMIDE 20 MG TABLET PO SCH (09:29)
--- NOTE | 2019-11-18 13:40 | PDOC DISCHARGE SUMMARY ---
Impression - Admit/DC Date/PCP Admission Date/Primary Care Provider: 11/15/19 16:21 Nir WRIGHT MD Discharge Date: 11/18/19 - Discharge Diagnosis (1) Ascites Is this a current diagnosis for this admission?: Yes (2) Chronic kidney disease (CKD), stage IV (severe) Is this a current diagnosis for this admission?: Yes (3) Cirrhosis Is this a current diagnosis for this admission?: Yes (4) Congestive heart failure Is this a current diagnosis for this admission?: Yes (5) Gout Is this a current diagnosis for this admission?: Yes (6) Hypertension Is this a current diagnosis for this admission?: Yes (7) Sleep apnea syndrome Is this a current diagnosis for this admission?: Yes (8) Protein calorie malnutrition Is this a current diagnosis for this admission?: Yes - Additional Information Discharge Diet: Cardiac Discharge Activity: Activity As Tolerated, Balance Activity w/Rest, Weigh Daily Referrals: HOLLIE FRIEND MD [ACTIVE STAFF] - 11/28/19 4:00 pm (*wear face mask or cover to appointment *) SERGEY PACK MD [ACTIVE STAFF] - 11/29/19 11:30 am LUKAS BRODY MD [ACTIVE STAFF] - 11/22/19 11:45 am Nir WRIGHT MD [Primary Care Provider] - (Office stated that they will call patient with appointment.) Prescriptions: Nadolol [Corgard 40 mg Tablet] 20 mg PO DAILY #30 tablet Cephalexin Monohydrate [Keflex 500 mg Capsule] 500 mg PO BID #10 capsule Furosemide [Lasix 20 mg Tablet] 20 mg PO BID #60 tablet Amlodipine Besylate [Norvasc 5 mg Tablet] 5 mg PO Q12 #60 tablet Famotidine [Pepcid 20 mg Tablet] 20 mg PO DAILY #30 tablet Allopurinol [Zyloprim 100 mg Tablet] 100 mg PO DAILY #30 tablet Home Medications: Allopurinol [Zyloprim 100 mg Tablet] 100 mg PO DAILY #30 tablet 02/01/18 Colchicine [Colcrys 0.6 mg Tablet] 0.6 mg PO DAILY #30 tablet 02/01/18 Allopurinol [Zyloprim 100 mg Tablet] 100 mg PO DAILY #30 tablet 11/18/19 Amlodipine Besylate [Norvasc 5 mg Tablet] 5 mg PO Q12 #60 tablet 11/18/19 Cephalexin Monohydrate [Keflex 500 mg Capsule] 500 mg PO BID #10 capsule 11/18/19 Famotidine [Pepcid 20 mg Tablet] 20 mg PO DAILY #30 tablet 11/18/19 Furosemide [Lasix 20 mg Tablet] 20 mg PO BID #60 tablet 11/18/19 Nadolol [Corgard 40 mg Tablet] 20 mg PO DAILY #30 tablet 11/18/19 History of Present Illiness History of Present Illness: TONY WOODS is a 59 year old male Is a 59-year-old male but he noncompliance with a history of chronic kidney disease stage III with a baseline creatinine is 2.5-3 and congestive heart failure cirrhosis of the liver and protein calorie malnutrition's and signi ficant other medical problem problems that very noncompliance 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 because of the increasing lower abdominal distention's Patient's denied any chest pain no short of breath patient admitting to 2018 remove the several fluid from the abdomen consistence with them non malignancy from the cirrhosis of the liverBut patient is unable to follow-up dr mirza Patients came today's because of increasing the more distentions patient's creatinine is 2.97 At this point decided to admit in the hospital for further paracentesis Hospital Course Hospital Course: This is a 59-year-old male's present in the emergency department with the significant distention of the abdomen as usual with the recurrent ascites Patient have a significant history of the chronic kidney disease cirrhosis of the liver protein calorie malnutrition's congestive heart failure's and top of that very noncompliance Patient's present in the ER with the abdominal distention's admitting in the hospital and patient underwent for the paracentesis x3 and each time removed 10 L of the fluid Patient is peritoneal fluid does not have any exudate signs Patient's culture is all negatives patient is otherwise feeling so much better Patient's CT scan of the abdomen and pelvis is all stable Patient is received the Albumin throughout the hospitalizations Patient seen by the cardiology echocardiogram was done adjust the medications Discussed with the Dr. Friend which patient is usually follow outpatient but not very often suggest to follow outpatients for further evaluate Patient's needs to continues to follow with the Dr. Wright chronic kidney disease discuss with the patient's and the patient's record of the patient's current conditions and about the noncompliance and needs to be follow Physical Exam Vital Signs: Temp Pulse Resp BP Pulse Ox 98.3 F 63 18 141/61 H 90 L 11/18/19 10:39 11/18/19 10:39 11/18/19 10:39 11/18/19 10:39 11/18/19 10:39 Intake & Output 11/17/19 11/18/19 11/19/19 06:59 06:59 06:59 Intake Total 1577 1182 Output Total 2425 800 Balance -848 382 Weight 151.9 kg 139.1 kg General appearance: PRESENT: no acute distress, well-developed, well-nourished Head exam: PRESENT: atraumatic, normocephalic Eye exam: PRESENT: conjunctiva pink, EOMI, PERRLA. ABSENT: scleral icterus Ear exam: PRESENT: normal external ear exam Mouth exam: PRESENT: moist, tongue midline Neck exam: ABSENT: carotid bruit, JVD, lymphadenopathy, thyromegaly Respiratory exam: PRESENT: clear to auscultation darline. ABSENT: rales, rhonchi, wheezes Cardiovascular exam: PRESENT: RRR. ABSENT: diastolic murmur, rubs, systolic murmur Pulses: PRESENT: normal dorsalis pedis pul Vascular exam: PRESENT: normal capillary refill GI/Abdominal exam: PRESENT: normal bowel sounds, soft. ABSENT: distended, guarding, mass, organolmegaly, rebound, tenderness Rectal exam: PRESENT: deferred Extremities exam: PRESENT: full ROM. ABSENT: calf tenderness, clubbing, pedal edema Neurological exam: PRESENT: alert, awake, oriented to person, oriented to place, oriented to time, oriented to situation, CN II-XII grossly intact. ABSENT: motor sensory deficit Psychiatric exam: PRESENT: appropriate affect, normal mood. ABSENT: homicidal ideation, suicidal ideation Skin exam: PRESENT: dry, intact, warm. ABSENT: cyanosis, rash Results Laboratory Results: WBC 5.6 10^3/uL (4.0-10.5) 11/18/19 05:29 RBC 3.70 10^6/uL (4.35-5.55) L 11/18/19 05:29 Hgb 10.3 g/dL (13.5-17.0) L 11/18/19 05:29 Hct 31.7 % (37.9-51.0) L 11/18/19 05:29 MCV 86 fl (80-97) 11/18/19 05:29 MCH 27.8 pg (27.0-33.4) 11/18/19 05:29 MCHC 32.4 g/dL (32.0-36.0) 11/18/19 05:29 RDW 16.7 % (11.5-14.0) H 11/18/19 05:29 Plt Count 151 10^3/uL (150-450) 11/18/19 05:29 Lymph % (Auto) 12.1 % (13-45) L 11/18/19 05:29 Harlan % (Auto) 11.4 % (3-13) 11/18/19 05:29 Eos % (Auto) 1.6 % (0-6) 11/18/19 05:29 Baso % (Auto) 1.2 % (0-2) 11/18/19 05:29 Absolute Neuts (auto) 4.1 10^3/uL (1.7-8.2) 11/18/19 05:29 Absolute Lymphs (auto) 0.7 10^3/uL (0.5-4.7) 11/18/19 05:29 Absolute Monos (auto) 0.6 10^3/uL (0.1-1.4) 11/18/19 05:29 Absolute Eos (auto) 0.1 10^3/uL (0.0-0.6) 11/18/19 05:29 Absolute Basos (auto) 0.1 10^3/uL (0.0-0.2) 11/18/19 05:29 Seg Neutrophils % 73.7 % (42-78) 11/18/19 05:29 PT 15.6 SEC (11.4-15.4) H 11/15/19 15:08 INR 1.23 11/15/19 15:08 Sodium 138.7 mmol/L (137-145) 11/18/19 05:29 Potassium 4.6 mmol/L (3.6-5.0) 11/18/19 05:29 Chloride 108 mmol/L (98-107) H 11/18/19 05:29 Carbon Dioxide 25 mmol/L (22-30) 11/18/19 05:29 Anion Gap 6 (5-19) 11/18/19 05:29 BUN 55 mg/dL (7-20) H 11/18/19 05:29 Creatinine 2.67 mg/dL (0.52-1.25) H 11/18/19 05:29 Est GFR ( Amer) 30 (>60) L 11/18/19 05:29 Est GFR (MDRD) Non-Af 25 (>60) L 11/18/19 05:29 Glucose 136 mg/dL (75-110) H 11/18/19 05:29 Calcium 7.6 mg/dL (8.4-10.2) L 11/18/19 05:29 Magnesium 1.9 mg/dL (1.6-2.3) 11/18/19 05:29 Total Bilirubin 0.7 mg/dL (0.2-1.3) 11/16/19 06:23 Direct Bilirubin 0.2 mg/dL (0.0-0.4) 11/16/19 06:23 Neonat Total Bilirubin Not Reportable 11/16/19 06:23 Neonat Direct Bilirubin Not Reportable 11/16/19 06:23 Neonat Indirect Bili Not Reportable 11/16/19 06:23 AST 17 U/L (17-59) 11/16/19 06:23 ALT 11 U/L (<50) 11/16/19 06:23 Alkaline Phosphatase 77 U/L (38-126) 11/16/19 06:23 Ammonia 16.4 umol/L (9-33) 11/16/19 07:34 Total Protein 6.9 g/dL (6.3-8.2) 11/16/19 06:23 Albumin 3.8 g/dL (3.5-5.0) 11/16/19 12:44 Lipase 82.2 U/L (23-300) 11/15/19 14:08 Fluid Type PERITONEAL 11/15/19 16:16 Fluid Source ABDOMEN 11/15/19 16:16 Fluid Color LIGHT YELLOW 11/15/19 16:16 Fluid Appearance CLEAR 11/15/19 16:16 Fluid Viscosity LIQUID 11/15/19 16:16 Fluid pH 8.0 (Not Estab.) 11/15/19 16:16 Fluid WBC 41 /uL 11/15/19 16:16 Fluid RBC 28 /uL 11/15/19 16:16 Fluid Seg Neutrophils 17 % 11/15/19 16:16 Fluid Lymphocytes 72 % 11/15/19 16:16 Fluid Monocytes 11 % 11/15/19 16:16 Fluid Eosinophils 0 % 11/15/19 16:16 Fluid Basophils 0 % 11/15/19 16:16 Fluid Glucose 116 mg/dL (.) 11/15/19 16:16 Fluid Albumin 2.4 g/dL (Not Estab.) 11/15/19 16:16 Fluid LDH 77 IU/L (.) 11/15/19 16:16 SARS-CoV-2 (PCR) NEGATIVE (NEGATIVE) 11/15/19 15:41 Impressions: Paracentesis Ultrasound 11/15/19 14:00 IMPRESSION: Successful ultrasound-guided paracentesis. Paracentesis Ultrasound 11/16/19 00:00 IMPRESSION: Successful ultrasound-guided paracentesis. Abdomen/Pelvis CT 11/17/19 00:00 IMPRESSION: Hepatic cirrhosis by history. Extensive edema. Mild ascites. Cholelithiasis. Small pleural effusions. Chest X-Ray 11/17/19 00:00 IMPRESSION: Cardiomegaly without pulmonary edema. Paracentesis Ultrasound 11/17/19 00:00 IMPRESSION: SUCCESSFUL ULTRASOUND GUIDED PARACENTESIS. Lung Scan-VQ NM 11/17/19 07:00 IMPRESSION: NORMAL PERFUSION LUNG SCAN. Plan Time Spent: Greater than 30 Minutes - Follow-up with the Dr. Ariella Wright and Dr. Portillo Follow outpatient in my office in 1 week Stroke Is this a Stroke Patient?: No Acute Heart Failure - Is this a Heart Failure Patient?: No
[2019-11-18] MEDS ORDERED: ALBUMIN HUMAN 12.5 GM/50 ML RTUINJ IV SCH (18:00)
== END 2019-11-18 11:28 | disposition home or self-care (01) | DRG 433 ==
LOC: ER 13:17 → EH 16:21 → 3S 22:14
PROVIDERS: ADMIT Family Medicine; ATTEND Family Medicine
PROC: 0W9G3ZZ Drainage of Peritoneal Cavity, Percutaneous Approach (ICD-10-PCS; principal; 2019-11-15)
PROC: 0W9G3ZZ Drainage of Peritoneal Cavity, Percutaneous Approach (ICD-10-PCS; 2019-11-16)
PROC: 0W9G3ZZ Drainage of Peritoneal Cavity, Percutaneous Approach (ICD-10-PCS; 2019-11-17)
DX: K74.60 Unspecified cirrhosis of liver (principal); R18.8 Other ascites; E46 Unspecified protein-calorie malnutrition; I13.0 Hypertensive heart and chronic kidney disease with heart failure and stage 1 through stage 4 chronic kidney disease, or unspecified chronic kidney disease; K76.6 Portal hypertension; N18.4 Chronic kidney disease, stage 4 (severe); I50.42 Chronic combined systolic (congestive) and diastolic (congestive) heart failure; I27.29 Other secondary pulmonary hypertension; Z20.828 Contact with and (suspected) exposure to other viral communicable diseases; M10.9 Gout, unspecified; G47.30 Sleep apnea, unspecified; E78.5 Hyperlipidemia, unspecified; K21.9 Gastro-esophageal reflux disease without esophagitis; D64.9 Anemia, unspecified; E66.01 Morbid (severe) obesity due to excess calories; Z79.899 Other long term (current) drug therapy; Z91.19 Patient's noncompliance with other medical treatment and regimen
CPT/HCPCS: 36415; 49083; 71045; 74176; 78580; 80048; 80053; 82040; 82042; 82140; 82945; 83615; 83690; 83735; 83986; 85025; 85610; 87040; 87070; 87075; 87205; 87635; 89050; 93005; 93010; 93306; 99285; A9540; J0696; J1940; J3490; P9047; Q9969

== ENCOUNTER 2019-12-14 10:38 | Day surgery (SDC) | payer OTHER ==
[~2019-12-14 10:38] MED LIST: ALBUMIN HUMAN 75 GM/300 ML RTUINJ IV PRN
[2019-12-14 12:29] LABS: HEMATOCRIT 35.5 % (37.9-51.0); MEAN CORPUSCULAR HEMOGLOBIN 27.1 pg (27.0-33.4); MEAN CORPUSCULAR HGB CONC 31.1 g/dL (32.0-36.0); MEAN CORPUSCULAR VOLUME 87 fl (80-97); PLATELET COUNT 166 10^3/uL (150-450); RED BLOOD COUNT 4.08 10^6/uL (4.35-5.55); RED CELL DISTRIBUTION WIDTH 16.9 % (11.5-14.0); WHITE BLOOD COUNT 4.5 10^3/uL (4.0-10.5)
[2019-12-14 12:34] LABS: INTERNATIONAL RATION (INR) 1.18; PROTHROMBIN TIME 15.1 SEC (11.4-15.4)
[2019-12-14 12:35] LABS: PARTIAL THROMBOPLASTIN TIME 30.7 SEC (23.5-35.8)
[2019-12-14 12:58] LABS: BLOOD UREA NITROGEN 69 mg/dL (7-20); CREATINE KINASE 79 U/L (55-170)
[2019-12-14 16:56] VITALS: BP 158/79
--- NOTE | 2019-12-14 17:05 | RADIOLOGY REPORT (SQ) ---
EXAM DESCRIPTION: U/S ABD PARACENTESIS IMAGES COMPLETED DATE/TIME: 12/14/2019 2:50 pm REASON FOR STUDY: OTHER ASCITES R18.8 OTHER ASCITES COMPARISON: Multiple previous paracentesis RADIATION DOSE: None LIMITATIONS: None. PROCEDURE: Procedure, risks, benefit, and alternative explained to patient who then gave written con sent. The right lower abdominal wall marked using ultrasound guidance. A time-out was called for co rrect marking verification. Abdomen prepped and draped using sterile technique. Local anesthesia ach ieved using 5 ml of 1% lidocaine injection. A 6fr Cbhl-V-Cftncbpz set was introduced into the perito jennifer cavity. Fluid was drained. The catheter was removed and entry site was covered with sterile ba ndage. No immediate complications noted. Images acquired during the procedure were stored on PACS. FINDINGS: ENTRY SITE: Right lower quadrant. FLUID VOLUME: 10 L FLUID ANALYSIS: Straw-colored fluid OTHER: Fluid sent to the lab for testing. IMPRESSION: SUCCESSFUL ULTRASOUND GUIDED PARACENTESIS. COMMENT: Patient medication list reviewed:Yes- Quality ID# [id number]:Eligible professional attests to docu menting in the medical record they obtained, updated, or reviewed the patient's current medications. TECHNICAL DOCUMENTATION: JOB ID: [id number] 2010 [email or web address]- All Rights Reserved Reading location - IP/workstation name: [email or web address] [id number]
== END 2019-12-14 16:15 | disposition home or self-care (01) ==
LOC: RAD 10:38
PROVIDERS: ATTEND Internal Medicine Gastroenterology
DX: R18.8 Other ascites (principal); I13.0 Hypertensive heart and chronic kidney disease with heart failure and stage 1 through stage 4 chronic kidney disease, or unspecified chronic kidney disease; N18.4 Chronic kidney disease, stage 4 (severe); I50.9 Heart failure, unspecified; K74.60 Unspecified cirrhosis of liver; Z91.19 Patient's noncompliance with other medical treatment and regimen
CPT/HCPCS: 36415; 82962; 84520; 82550; 85027; 85610; 85730; 88162; 49083; P9047

== ENCOUNTER 2019-12-26 07:18 | Day surgery (SDC) | payer OTHER ==
[2019-12-26 08:33] LABS: INTERNATIONAL RATION (INR) 1.31; PROTHROMBIN TIME 16.4 SEC (11.4-15.4)
[2019-12-26 08:34] LABS: HEMATOCRIT 35.2 % (37.9-51.0); HEMOGLOBIN 11.1 g/dL (13.5-17.0); MEAN CORPUSCULAR HEMOGLOBIN 26.8 pg (27.0-33.4); MEAN CORPUSCULAR HGB CONC 31.5 g/dL (32.0-36.0); MEAN CORPUSCULAR VOLUME 85 fl (80-97); PLATELET COUNT 175 10^3/uL (150-450); RED BLOOD COUNT 4.14 10^6/uL (4.35-5.55); RED CELL DISTRIBUTION WIDTH 16.8 % (11.5-14.0); WHITE BLOOD COUNT 3.8 10^3/uL (4.0-10.5)
[2019-12-26 08:38] LABS: PARTIAL THROMBOPLASTIN TIME 30.6 SEC (23.5-35.8)
[2019-12-26 08:44] LABS: BLOOD UREA NITROGEN 56 mg/dL (7-20)
[2019-12-26] MEDS ORDERED: ALBUMIN HUMAN 75 GM/300 ML RTUINJ IV PRN (09:49)
--- NOTE | 2019-12-26 14:03 | RADIOLOGY REPORT (SQ) ---
EXAM DESCRIPTION: U/S ABD PARACENTESIS IMAGES COMPLETED DATE/TIME: 12/26/2019 11:18 am REASON FOR STUDY: ASCITES R18.8 OTHER ASCITES COMPARISON: 12/14/2019 LIMITATIONS: None. PROCEDURE: Procedure, risks, benefit, and alternative explained to patient who then gave written con sent. The right lower abdominal wall marked using ultrasound guidance. A time-out was called for co rrect marking verification. Abdomen prepped and draped using sterile technique. Local anesthesia ach ieved using 10 ml of 1% lidocaine injection. A 6fr Wryh-B-Fsvfcajd set was introduced into the perit mckeon cavity. Fluid was drained. The catheter was removed and entry site was covered with sterile b andage. No immediate complications noted. Images acquired during the procedure were stored on PACS. FINDINGS: ENTRY SITE: Right lower quad FLUID VOLUME: 10 L FLUID ANALYSIS: [place] colored OTHER: Fluid sent to the lab for testing. IMPRESSION: SUCCESSFUL ULTRASOUND GUIDED PARACENTESIS. COMMENT: Patient medication list reviewed:Yes- Quality ID# [id number]:Eligible professional attests to docu menting in the medical record they obtained, updated, or reviewed the patient's current medications. TECHNICAL DOCUMENTATION: JOB ID: [id number] 2010 [employer]- All Rights Reserved Reading location - IP/workstation name: [email or web address]
[2019-12-26 14:08] VITALS: BP 159/91
== END 2019-12-26 12:50 | disposition home or self-care (01) ==
LOC: RAD 07:18
PROVIDERS: ATTEND Internal Medicine Gastroenterology
DX: R18.8 Other ascites (principal); I12.9 Hypertensive chronic kidney disease with stage 1 through stage 4 chronic kidney disease, or unspecified chronic kidney disease; N18.4 Chronic kidney disease, stage 4 (severe); K74.60 Unspecified cirrhosis of liver; Z91.19 Patient's noncompliance with other medical treatment and regimen
CPT/HCPCS: 36415; 84520; 82565; 85027; 85610; 85730; 88162; 49083; P9047

== ENCOUNTER → 2020-02-17 | Outpatient (CLI) | payer OTHER ==
[2020-02-17 15:48] LABS: APPEARANCE,URINE CLEAR; BILIRUBIN,URINE NEGATIVE (NEGATIVE); COLOR,URINE YELLOW; GLUCOSE, URINE NEGATIVE (NEGATIVE); KETONES,URINE NEGATIVE (NEGATIVE); LEUKOCYTE ESTERASE,URINE NEGATIVE (NEGATIVE); NITRITE,URINE NEGATIVE (NEGATIVE); PROTEIN,URINE NEGATIVE (NEGATIVE); URINE SPECIFIC GRAVITY 1.012
[2020-02-17 16:09] LABS: ALBUMIN 3.7 g/dL (3.5-5.0); ALKALINE PHOSPHATASE 102 U/L (38-126); ANION GAP 11 (5-19); ASPARTATE AMINO TRANSFERASE 21 U/L (17-59); BILIRUBIN,DIRECT 0.3 mg/dL (0.0-0.4); BILIRUBIN,TOTAL 0.6 mg/dL (0.2-1.3); BLOOD UREA NITROGEN 57 mg/dL (7-20); CALCIUM 8.5 mg/dL (8.4-10.2); CARBON DIOXIDE 22 mmol/L (22-30); CHLORIDE 109 mmol/L (98-107); GLUCOSE 101 mg/dL (75-110); PHOSPHORUS 4.7 mg/dL (2.5-4.5); POTASSIUM 5.6 mmol/L (3.6-5.0); TOTAL PROTEIN 7.5 g/dL (6.3-8.2)
[2020-02-17 16:20] LABS: UR PRO/CREAT RATIO RESULT 0.1 mg/mg (0.0-0.2)
[2020-02-17 16:30] LABS: URINE CREATININE 81.1 mg/dL (22-328)
== END ==
LOC: OD 15:18
PROVIDERS: ATTEND Internal Medicine Nephrology
DX: I12.9 Hypertensive chronic kidney disease with stage 1 through stage 4 chronic kidney disease, or unspecified chronic kidney disease (principal); N18.4 Chronic kidney disease, stage 4 (severe)
CPT/HCPCS: 36415; 80053; 81001; 82570; 83970; 84100; 84156